=== PATIENT | male | born 1955 | race Caucasian/White ===

== ENCOUNTER 2018-10-06 20:59 | Emergency (ER) | payer MEDICAID, OTHER ==
[~2018-10-06] VITALS: Ht 165.1 cm; Wt 60.8 kg
--- OUTSIDE RECORDS SUMMARY | 2018-10-06 21:05 | XMS REPORT ---
Author Author [facility] Medical Staff Organization [facility] Address [address] [place], [place] [address] Phone [phone] Summary purpose CCDA Sent to [facility] Chief Complaint and Reason for Visit Admit Diagnosis 1 AGITATION, AGGRESSION Problem list No authorized problems tracked for continuity of care are available for this visit. Encounters No authorized problems tracked for encounter diagnoses are available for this visit. Medications No medications recorded for this patient visit Allergies, adverse reactions, alerts No allergy information is available for this patient. Immunizations No immunizations recorded for this patient visit Relevant diagnostic tests and/or laboratory data No authorized results are available for this patient visit History of procedures No procedures recorded for this patient visit. Functional status No functional or cognitive status observations are available for this visit. Vital signs No authorized vital signs are available for this visit. Social history No Social History or smoking status observations were recorded for this visit. ( Unknown if ever smoked.) Treatment Plan No treatment plan text is available for this visit. Hospital discharge instructions No discharge instruction text is available for this visit.
--- OUTSIDE RECORDS SUMMARY | 2018-10-06 21:05 | XMS REPORT | Referral Summary ---
Author Author [facility] Organization [facility] Address Unknown Phone Unavailable Care Team Providers Care Bilingual Interpreter Name Role Phone Rafat Flores PCP Encounter VC Date(s): 06/15/16 - 06/15/16 [facility] [address] [place], [place] [address] Discharge Diagnosis: Seizure Discharge Diagnosis: Seizure Discharge Disposition: 91-Alf Care Hsp-Plan A[facility] IP Readmi Attending Physician: Caro Hammer MD Admitting Physician: Caro Hammer MD Vital Signs Most recent to 1 oldest [Reference Range]: Temperature Oral 36.5 degC [35.8-37.3 degC] (06/15/16 7:02 AM) Peripheral Pulse 63 bpm Rate [60-100 bpm] (06/15/16 7:02 AM) Heart Rate Monitored 54 bpm [60-100 bpm] *LOW* (06/15/16 11:57 AM) Respiratory Rate 18 br/min [14-20 br/min] (06/15/16 11:57 AM) Blood Pressure 129/97 mmHg [90-140/60-90 mmHg] (06/15/16 11:57 AM) Mean Arterial 107 mmHg Pressure, Cuff (06/15/16 11:57 AM) SpO2 96 % (06/15/16 11:57 AM) Problem List Condition Effective Dates Status Health Status Informant Acute Resolved pain(Confirmed) Eye Active patient abnormality(Confirme d)1 History of traumatic Active brain injury(Confirmed) Ineffective coping Active (individual)(Confirm ed)2 Knowledge Active deficit(Confirmed)3, 4 Obesity(Confirmed) Active patient SD (senile Active dementia)(Confirmed) Senile Active dementia(Confirmed) Injury brain, Active traumatic(Confirmed) Hepatitis Active patient B(Confirmed) Hepatitis Active patient C(Confirmed) 1glass right eye 2Problem added automatically by system based on initiation of Ineffective Coping Plan of Care 3Problem updated automatically by system based on initiation of Knowledge Deficit Plan of Care 4Problem added automatically by system based on initiation of Knowledge Deficit Plan of Care Allergies, Adverse Reactions, Alerts No Known Allergies Medications acetaminophen 325 mg oral tablet 650 mg 2 tabs, Oral, q4hr, Pain Mild (1-3), 0 Refill(s) Start Date: 04/25/15 Status: Ordered Ativan 1 mg oral tablet 2 mg 2 tabs, Oral, q4hr, Anxiety, 0 Refill(s) Start Date: 04/25/15 Status: Ordered Cozaar 25 mg oral tablet 25 mg 1 tabs, Oral, Daily, 0 Refill(s) Start Date: 04/25/15 Status: Ordered folic acid 1 mg oral tablet 1 mg 1 tabs, Oral, Daily, 0 Refill(s) Start Date: 04/25/15 Status: Ordered gabapentin 300 mg oral capsule mg caps, Oral, TID, 0 Refill(s) Start Date: 06/03/16 Status: Ordered Haldol 5 mg 1 tabs, Oral, q4hr, Agitation, 0 Refill(s) Start Date: 04/25/15 Status: Ordered Keppra 500 mg oral tablet 500 mg 1 tabs, Oral, BID, # 60 tabs, 0 Refill(s), 1 tabs Oral BID Start Date: 06/15/16 Status: Ordered Namenda 10 mg oral tablet 10 mg 1 tabs, Oral, Daily, 0 Refill(s) Start Date: 04/25/15 Status: Ordered Protonix 40 mg oral delayed release tablet 40 mg 1 tabs, Oral, Daily, 0 Refill(s) Start Date: 04/25/15 Status: Ordered Vitamin B12 1000 mcg oral tablet 1,000 mcg 1 tabs, Oral, Daily, 0 Refill(s) Start Date: 04/25/15 Status: Ordered Vitamin D3 400 intl units oral tablet 400 Intl_Units 1 tabs, Oral, Daily, 0 Refill(s) Start Date: 04/25/15 Status: Ordered Zoloft 100 mg oral tablet G tabs, Oral, Daily, 0 Refill(s) Start Date: 06/03/16 Status: Ordered Results Hematology Most recent to 1 oldest [Reference Range]: WBC [4.8-10.8 4.9 10*3/uL 10*3/uL] (06/15/16 7:42 AM) RBC [4.60-6.20] 4.77 (06/15/16 7:42 AM) Hgb [14.0-18.0 14.4 gm/dL gm/dL] (06/15/16 7:42 AM) Hct [42.0-52.0 %] 41.9 % *LOW* (06/15/16 7:42 AM) MCV [82.0-99.0 fL] 87.8 fL (06/15/16 7:42 AM) MCH [27.0-32.0 pg] 30.2 pg (06/15/16 7:42 AM) MCHC [32.0-36.0 34.4 gm/dL gm/dL] (06/15/16 7:42 AM) RDW [11.5-14.5 %] 13.4 % (06/15/16 7:42 AM) Platelet [150-400 158 10*3/uL 10*3/uL] (06/15/16 7:42 AM) MPV [9.4-12.3 fL] 10.2 fL (06/15/16 7:42 AM) Immature 0.0 % Granulocytes (06/15/16 7:42 AM) [0.0-1.0 %] Neutrophils [51-75 62 % %] (06/15/16 7:42 AM) Lymphocytes [20-46 27 % %] (06/15/16 7:42 AM) Monocytes [4-11 %] 10 % (06/15/16 7:42 AM) Eosinophils [0-4 %] 1 % (06/15/16 7:42 AM) Basophils [0-2 %] 0 % (06/15/16 7:42 AM) Neutro Absolute 3.01 [1.90-7.00] (06/15/16 7:42 AM) Lymph Absolute 1.30 [0.80-3.30] (06/15/16 7:42 AM) [place] Absolute 0.50 [0.30-1.00] (06/15/16 7:42 AM) Eos Absolute 0.07 [0.00-0.50] (06/15/16 7:42 AM) Baso Absolute 0.01 [0.00-0.20] (06/15/16 7:42 AM) Chemistry Most recent to 1 oldest [Reference Range]: Sodium Lvl [136-144 139 mEq/L mEq/L] (06/15/16 7:42 AM) Potassium Lvl 3.9 mEq/L [3.6-5.1 mEq/L] (06/15/16 7:42 AM) Chloride [99-109 104 mEq/L mEq/L] (06/15/16 7:42 AM) CO2 [22-32 mEq/L] 24 mEq/L (06/15/16 7:42 AM) AGAP [3-20] 11 (06/15/16 7:42 AM) BUN [4-20 mg/dL] 14 mg/dL (06/15/16 7:42 AM) Glucose Lvl [70-100 114 mg/dL mg/dL] *HI* (06/15/16 7:42 AM) Creatinine Lvl 1.00 mg/dL [0.64-1.27 mg/dL] (06/15/16 7:42 AM) eGFR [>60] >60 1 (06/15/16 7:42 AM) Calcium Lvl 9.3 mg/dL [8.6-10.0 mg/dL] (06/15/16 7:42 AM) Albumin Lvl [3.5-4.8 4.1 gm/dL gm/dL] (06/15/16 7:42 AM) Total Protein 7.0 gm/dL [6.1-7.9 gm/dL] (06/15/16 7:42 AM) Globulin [1.9-4.3 2.9 gm/dL gm/dL] (06/15/16 7:42 AM) ALT [17-63 U/L] 21 U/L (06/15/16 7:42 AM) AST [15-41 U/L] 27 U/L (06/15/16 7:42 AM) Alk Phos [26-104 57 U/L U/L] (06/15/16 7:42 AM) Bili Total [0.2-1.2 1.3 mg/dL 2 mg/dL] *HI* (06/15/16 7:42 AM) Magnesium Lvl 1.9 mg/dL [1.8-2.5 mg/dL] (06/15/16 7:42 AM) 1Result Comment: Multiply eGFR results by 1.21 for race. 2Result Comment: Naproxen, specifically the metabolite O-desmethylnaproxen, may cause spurious elevation in Total Bilirubin levels. Toxicology Most recent to 1 oldest [Reference Range]: U Amphetamine Scrn Negative (06/15/16 8:56 AM) U Cocaine Scrn Negative (06/15/16 8:56 AM) U Cannab Scrn Negative (06/15/16 8:56 AM) U Opiate Scrn Negative (06/15/16 8:56 AM) U PCP Scrn Negative (06/15/16 8:56 AM) U Benzodiazepine Negative Scrn (06/15/16 8:56 AM) U Barbiturate Scrn Negative (06/15/16 8:56 AM) Methadone Lvl Negative (06/15/16 8:56 AM) Tricyclics Negative 1 (06/15/16 8:56 AM) 1Result Comment: Cut-off concentrations: Amphetamines: 1000 ng/mL Cocaine: 300 ng/mL Cannabinoid: 50 ng/mL Opiate: 300 ng/mL Phencyclidine (PCP): 25 ng/mL Benzodiazepine: 200 ng/mL Barbiturate: 200 ng/mL Methadone: 300 ng/mL Tricyclic: 300 ng/mL The urine drug screen assays are qualitative screens. A more specific GC/MS method must be performed to obtain a confirmed analytical result. Unconfirmed screening results must not be used for non-medical purposes(e.g. employment or legal testing) Immunizations No data available for this section Procedures No data available for this section Social History Social History Type Response Smoking Status Never smoker Assessment and Plan No data available for this section
--- OUTSIDE RECORDS SUMMARY | 2018-10-06 21:05 | XMS REPORT | Referral Summary ---
Author Author [facility] Organization [facility] Address Unknown Phone Unavailable Care Team Providers Care Lab Coordinator Name Role Phone Rafat Flores PCP Encounter VC Date(s): 06/03/16 - 06/03/[address] [facility] [address] [place], [place] [address] Discharge Diagnosis: Minor head injury Discharge Diagnosis: Dementia Discharge Diagnosis: Syncope, near Discharge Diagnosis: TBI (traumatic brain injury) Discharge Disposition: 03-Fpc Facility Attending Physician: Helio Zamora DO Admitting Physician: Helio Zamora DO Vital Signs Most recent to 1 oldest [Reference Range]: Temperature Oral 37.0 degC [35.8-37.3 degC] (06/03/16 7:08 AM) Peripheral Pulse 58 bpm Rate [60-100 bpm] *LOW* (06/03/16 7:08 AM) Heart Rate Monitored 56 bpm [60-100 bpm] *LOW* (06/03/16 10:15 AM) Respiratory Rate 20 br/min [14-20 br/min] (06/03/16 10:15 AM) Blood Pressure 124/98 mmHg [90-140/60-90 mmHg] (06/03/16 10:15 AM) Mean Arterial 102 mmHg Pressure, Cuff (06/03/16 8:15 AM) SpO2 96 % (06/03/16 10:00 AM) Problem List Condition Effective Dates Status [...] 0 Refill(s) Start Date: 04/25/15 Status: Ordered Namenda 10 mg oral tablet [...] [Reference Range]: WBC [4.8-10.8 4.9 10*3/uL 10*3/uL] (06/03/16 7:58 AM) RBC [4.60-6.20] 4.95 (06/03/16 7:58 AM) Hgb [14.0-18.0 15.0 gm/dL gm/dL] (06/03/16 7:58 AM) Hct [42.0-52.0 %] 43.2 % (06/03/16 7:58 AM) MCV [82.0-99.0 fL] 87.3 fL (06/03/16:58 AM) MCH [27.0-32.0 pg] 30.3 pg (06/03/16:58 AM) MCHC [32.0-36.0 34.7 gm/dL gm/dL] (06/03/16 7:58 AM) RDW [11.5-14.5 %] 13.6 % (06/03/16 7:58 AM) Platelet [150-400 160 10*3/uL 10*3/uL] (06/03/16 7:58 AM) MPV [9.4-12.3 fL] 10.7 fL (06/03/16 7:58 AM) Immature 0.0 % Granulocytes (06/03/16 7:58 AM) [0.0-1.0 %] Neutrophils [51-75 64 % %] (06/03/16 7:58 AM) Lymphocytes [20-46 24 % %] (06/03/16 7:58 AM) Monocytes [4-11 %] 11 % (06/03/16 7:58 AM) Eosinophils [0-4 %] 1 % (06/03/16 7:58 AM) Basophils [0-2 %] 0 % (06/03/16 7:58 AM) Neutro Absolute 3.13 [1.90-7.00] (06/03/16 7:58 AM) Lymph Absolute 1.19 [0.80-3.30] (06/03/16 7:58 AM) [place] Absolute 0.56 [0.30-1.00] (06/03/16 7:58 AM) Eos Absolute 0.04 [0.00-0.50] (06/03/16 7:58 AM) Baso Absolute 0.01 [0.00-0.20] (06/03/16 7:58 AM) Chemistry Most recent to 1 oldest [Reference Range]: Sodium Lvl [136-144 135 mEq/L mEq/L] *LOW* (06/03/16 7:58 AM) Potassium Lvl 4.5 mEq/L 1 [3.6-5.1 mEq/L] (06/03/16 9:29 AM) Chloride [99-109 104 mEq/L mEq/L] (06/03/16 7:58 AM) CO2 [22-32 mEq/L] 23 mEq/L (06/03/16 7:58 AM) AGAP [3-20] 8 (06/03/16 7:58 AM) BUN [4-20 mg/dL] 16 mg/dL (06/03/16 7:58 AM) Glucose Lvl [70-100 98 mg/dL mg/dL] (06/03/16 7:58 AM) Creatinine Lvl 0.89 mg/dL [0.64-1.27 mg/dL] (06/03/16 7:58 AM) eGFR [>60] >60 2 (06/03/16 7:58 AM) Calcium Lvl 9.0 mg/dL [8.6-10.0 mg/dL] (06/03/16 7:58 AM) Albumin Lvl [3.5-4.8 4.0 gm/dL gm/dL] (06/03/16 7:58 AM) Total Protein 7.0 gm/dL [6.1-7.9 gm/dL] (06/03/16 7:58 AM) Globulin [1.9-4.3 3.0 gm/dL gm/dL] (06/03/16 7:58 AM) ALT [17-63 U/L] 26 U/L (06/03/16 7:58 AM) AST [15-41 U/L] 46 U/L *HI* (06/03/16 7:58 AM) Alk Phos [26-104 56 U/L U/L] (06/03/16 7:58 AM) Bili Total [0.2-1.2 2.0 mg/dL 3 mg/dL] *HI* (06/03/16 7:58 AM) Troponin [<0.06 <0.05 ng/mL ng/mL] (06/03/16 7:58 AM) 1Result Comment: Hemolyzed specimen. The following tests may be affected: ALT, AST, Ammonia, Iron, Potassium, LDH, Amylase, CPK, and Total Bilirubin. ' 2Result Comment: Multiply eGFR results by 1.21 for race. 3Result Comment: Naproxen, specifically the metabolite O-desmethylnaproxen, may cause spurious elevation in Total Bilirubin levels. Urinalysis Most recent to 1 oldest [Reference Range]: UA Color Yellow (06/03/16 7:58 AM) UA Appear Clear (06/03/16 7:58 AM) UA pH [5.0-8.0] 6.0 (06/03/16 7:58 AM) UA Leuk Est Negative [Negative] (06/03/16 7:58 AM) UA Nitrite Negative [Negative] (06/03/16 7:58 AM) UA Protein Negative [Negative] (06/03/16 7:58 AM) UA Glucose Negative [Negative] (06/03/16 7:58 AM) UA Ketones Negative [Negative] (06/03/16 7:58 AM) UA Urobilinogen Negative [<1.0] (06/03/16 7:58 AM) UA Bili [Negative] Negative (06/03/16 7:58 AM) UA Blood [Negative] Negative (06/03/16 7:58 AM) UA Spec Grav 1.020 [1.003-1.030] (06/03/16 7:58 AM) Type Not Specified (06/03/16 7:58 AM) Immunizations No data available for this section Procedures No data available for this section Social History Social History Type Response Smoking Status Never smoker Assessment and Plan No data available for this section
--- OUTSIDE RECORDS SUMMARY | 2018-10-06 21:05 | XMS REPORT | Referral Summary ---
Author Author [facility], [facility] Organization [facility], [facility] Address Unknown Phone Unavailable Care Team Providers Care Public Health Professor Name Role Phone No PCP, Pt States PCP Encounter VC Date(s): 10/24/14 - 10/24/14 [facility], [address] [address] Discharge Diagnosis: Senile dementia Discharge Diagnosis: Hepatitis C Discharge Diagnosis: History of traumatic brain injury Discharge Disposition: 01-Home or Self Care Attending Physician: Yumiko Dang MD Admitting Physician: Yumiko Dang MD Vital Signs Most recent to 1 oldest [Reference Range]: Temperature Oral 36.7 degC [35.8-37.3 degC] (10/24/14 4:47 PM) Peripheral Pulse 76 bpm Rate [60-100 bpm] (10/24/14 4:47 PM) Blood Pressure 126/80 mmHg [90-140/60-90 mmHg] (10/24/14 4:47 PM) Problem List Condition Effective Dates Status Health Status Informant Acute Resolved pain(Confirmed) Eye Active patient abnormality(Confirme d)1 History of traumatic Active brain injury(Confirmed) Ineffective coping Active (individual)(Confirm ed)2 Knowledge Active deficit(Confirmed)3, 4 Obesity(Confirmed) Active patient Senile Active dementia(Confirmed) Hepatitis Active patient B(Confirmed) Hepatitis Active patient [...] 0 Refill(s) Start Date: 04/25/15 Status: Ordered Haldol 5 mg 1 tabs, [...] 0 Refill(s) Start Date: 04/25/15 Status: Ordered Results No data available for this section Immunizations No data available for this section Procedures No data available for this section Social History Social History Type Response Smoking Status Never smoker Assessment and Plan Extracted from: Title: Office Visit Note Author: Yumiko Dang MD Date: 10/24/14 Assessment/Plan 1.Senile dementia Namenda to 10mg BID. Will f/up with [facility] as well. 2.History of traumatic brain injury Stable at this time Hepatitis C Need records from previous tx. Will request when received. Orders: memantine, 10 mg 1 tabs, Oral, BID, # 60 tabs, 5 Refill(s), Pharmacy: [facility] #[id number], 1 tabs Oral BID
--- OUTSIDE RECORDS SUMMARY | 2018-10-06 21:06 | XMS REPORT | Referral Summary ---
Author Author [facility] Organization [facility] Address Unknown Phone Unavailable Care Team Providers Care Pre Billing Clinician Name Role Phone No PCP, Pt States PCP Encounter VC Date(s): 03/02/16 - 03/02/16 [facility] [address] [place], [place] [address] Discharge Diagnosis: TBI (traumatic brain injury) Discharge Disposition: 03-Residential Facility Attending Physician: Moises Johansen MD Admitting Physician: Moises Johansen MD Vital Signs Most recent to 1 oldest [Reference Range]: Temperature Oral 36.6 degC [35.8-37.3 degC] (03/02/16 7:40 AM) Peripheral Pulse 65 bpm Rate [60-100 bpm] (03/02/16 10:38 AM) Heart Rate Monitored 65 bpm [60-100 bpm] (03/02/16 10:00 AM) Respiratory Rate 16 br/min [14-20 br/min] (03/02/16 10:38 AM) Blood Pressure 130/94 mmHg [90-140/60-90 mmHg] (03/02/16 10:38 AM) Mean Arterial 108 mmHg Pressure, Cuff (03/02/16 10:00 AM) SpO2 95 % (03/02/16 10:38 AM) Problem List Condition Effective Dates Status [...] Refill(s) Start Date: 04/25/15 Status: Ordered Results Hematology Most recent to 1 oldest [Reference Range]: WBC [4.8-10.8 5.7 10*3/uL 10*3/uL] (03/02/16 8:38 AM) RBC [4.60-6.20] 5.17 (03/02/16 8:38 AM) Hgb [14.0-18.0 15.3 gm/dL gm/dL] (03/02/16 8:38 AM) Hct [42.0-52.0 %] 45.0 % (03/02/16 8:38 AM) MCV [82.0-99.0 fL] 87.0 fL (03/02/16 8:38 AM) MCH [27.0-32.0 pg] 29.6 pg (03/02/16 8:38 AM) MCHC [32.0-36.0 34.0 gm/dL gm/dL] (03/02/16 8:38 AM) RDW [11.5-14.5 %] 13.4 % (03/02/16 8:38 AM) Platelet [150-400 178 10*3/uL 10*3/uL] (03/02/16 8:38 AM) MPV [9.4-12.3 fL] 9.5 fL (03/02/16 8:38 AM) Immature 0.2 % Granulocytes (03/02/16:38 AM) [0.0-1.0 %] Neutrophils [51-75 70 % %] (03/02/16 8:38 AM) Lymphocytes [20-46 20 % %] (03/02/16 8:38 AM) Monocytes [4-11 %] 10 % (03/02/16 8:38 AM) Eosinophils [0-4 %] 0 % (03/02/16 8:38 AM) Basophils [0-2 %] 0 % (03/02/16 8:38 AM) Neutro Absolute 3.97 10*3 [1.90-7.00 10*3] (03/02/16 8:38 AM) Lymph Absolute 1.12 10*3 [0.80-3.30 10*3] (03/02/16 8:38 AM) [place] Absolute 0.55 10*3 [0.30-1.00 10*3] (03/02/16 8:38 AM) Eos Absolute 0.02 10*3 [0.00-0.50 10*3] (03/02/16 8:38 AM) Baso Absolute 0.01 10*3 [0.00-0.20 10*3] (03/02/16 8:38 AM) Chemistry Most recent to 1 oldest [Reference Range]: Sodium Lvl [136-144 135 mEq/L mEq/L] *LOW* (03/02/16 8:38 AM) Potassium Lvl 4.2 mEq/L [3.6-5.1 mEq/L] (03/02/16 8:38 AM) Chloride [99-109 104 mEq/L mEq/L] (03/02/16 8:38 AM) CO2 [22-32 mEq/L] 22 mEq/L (03/02/16 8:38 AM) AGAP [3-20] 9 (03/02/16 8:38 AM) BUN [4-20 mg/dL] 16 mg/dL (03/02/16 8:38 AM) Glucose Lvl [70-100 99 mg/dL mg/dL] (03/02/16 8:38 AM) Creatinine Lvl 0.86 mg/dL [0.64-1.27 mg/dL] (03/02/16 8:38 AM) eGFR [>60] >60 1 (03/02/16 8:38 AM) Calcium Lvl 9.4 mg/dL [8.6-10.0 mg/dL] (03/02/16 8:38 AM) Albumin Lvl [3.5-4.8 4.4 gm/dL gm/dL] (03/02/16 8:38 AM) Total Protein 7.8 gm/dL [6.1-7.9 gm/dL] (03/02/16 8:38 AM) Globulin [1.9-4.3 3.4 gm/dL gm/dL] (03/02/16 8:38 AM) ALT [17-63 U/L] 26 U/L (03/02/16 8:38 AM) AST [15-41 U/L] 27 U/L (03/02/16 8:38 AM) Alk Phos [26-104 64 U/L U/L] (03/02/16 8:38 AM) Bili Total [0.2-1.2 1.4 mg/dL 2 mg/dL] *HI* (03/02/16 8:38 AM) Troponin [<0.06 <0.05 ng/mL ng/mL] (03/02/16 8:38 AM) 1Result Comment: Multiply eGFR results by 1.21 for race. 2Result Comment: Naproxen, specifically the metabolite O-desmethylnaproxen, may cause spurious elevation in Total Bilirubin levels. Urinalysis Most recent to 1 oldest [Reference Range]: UA Color Yellow (03/02/16 8:42 AM) UA Appear Clear (03/02/16 8:42 AM) UA pH [5.0-8.0] 6.0 (03/02/16 8:42 AM) UA Leuk Est Negative [Negative] (03/02/16 8:42 AM) UA Nitrite Negative [Negative] (03/02/16 8:42 AM) UA Protein Negative [Negative] (03/02/16 8:42 AM) UA Glucose Negative [Negative] (03/02/16 8:42 AM) UA Ketones Negative [Negative] (03/02/16 8:42 AM) UA Urobilinogen Negative [<1.0] (03/02/16 8:42 AM) UA Bili [Negative] Negative (03/02/16 8:42 AM) UA Blood [Negative] Negative (03/02/16 8:42 AM) UA Spec Grav 1.015 [1.003-1.030] (03/02/16 8:42 AM) Type Clean Catch (03/02/16 8:42 AM) Immunizations No data available for this section Procedures No data available for this section Social History Social History Type Response Smoking Status Never smoker Assessment and Plan No data available for this section
--- OUTSIDE RECORDS SUMMARY | 2018-10-06 21:06 | XMS REPORT | Referral Summary ---
Author Author [facility] Organization [facility] Address Unknown Phone Unavailable Care Team Providers Care [place] Seamer Name Role Phone No PCP, Pt States PCP Encounter VC Date(s): 09/24/15 - 09/24/15 [facility] [address] [place], [place] [address] Discharge Diagnosis: Injury brain, traumatic Discharge Diagnosis: SD (senile dementia) Discharge Disposition: 03-Assisted Facility Attending Physician: Rashid Curtis DO Admitting Physician: Rashid Curtis DO Vital Signs Most recent to 1 oldest [Reference Range]: Temperature Oral 36.6 degC [35.8-37.3 degC] (09/24/15 7:27 PM) Peripheral Pulse 109 bpm Rate [60-100 bpm] *HI* (09/24/15 9:17 PM) Respiratory Rate 18 br/min [14-20 br/min] (09/24/15 9:17 PM) Blood Pressure 117/98 mmHg [90-140/60-90 mmHg] (09/24/15 9:17 PM) SpO2 98 % (09/24/15 9:17 PM) Problem List Condition Effective Dates Status [...]
--- OUTSIDE RECORDS SUMMARY | 2018-10-06 21:06 | XMS REPORT ---
Author Author Mikal Mc Organization [employer] Address Unknown Phone Unavailable Care Team Providers Care Director Of Media Name Role Phone Mikal Mc CP Unavailable Allergies No Known Allergies Problems Problem Type Condition ICD-9 Code Onset Dates Condition Status Assessment Abdominal pain, generalized 789.07 Active Problem Cervicalgia 723.1 Active Medications No Known Medications Results No Known Results Summary Purpose [employer] Submission
--- OUTSIDE RECORDS SUMMARY | 2018-10-06 21:06 | XMS REPORT ---
Author Author Neil Tapia Organization [employer] Address Unknown Phone Unavailable Care Team Providers Care Director Diabetes Name Role Phone Neil Tapia CP Unavailable Allergies No Known Allergies Problems Problem Type Condition ICD-9 Code Onset Dates Condition Status Problem Cervicalgia 723.1 Active Medications No Known Medications Vital Signs Date/Time: December 28, 2011 Weight 198.8 lbs Height 64 inches Blood Pressure Diastolic 93 mm Hg Blood Pressure Systolic 139 mm Hg Temperature 97.9 F Cardiac Monitoring Heart Rate 88 Beats per Minute Results No Known Results Summary Purpose [employer] Submission
--- OUTSIDE RECORDS SUMMARY | 2018-10-06 21:06 | XMS REPORT | Referral Summary ---
Author Organization Unknown Address Unknown Phone Unavailable Care Team Providers Care Carbon Sequestration Plant Operator Name Role Phone [facility] PCP Unavailable Encounter [facility] [id number] Date(s): 08/27/14 - 08/27/14 [facility] [address] [place] [address] [phone] Discharge Disposition: Home or Self Care Attending Physician: Mikal Mc DO Admitting Physician: Mikal Mc DO Vital Signs No data available for this section Problem List No data available for this section Allergies, Adverse Reactions, Alerts No data available for this section Medications No data available for this section Results No data available for this section Immunizations No data available for this section Procedures No data available for this section Social History No data available for this section Assessment and Plan No data available for this section
--- OUTSIDE RECORDS SUMMARY | 2018-10-06 21:06 | XMS REPORT ---
Author Author Mikal Mc Organization [employer] Address Unknown Phone Unavailable Care Team Providers Care [employer] Commerce Consultant Name Role Phone Mikal Mc CP Unavailable Allergies, Adverse Reactions, Alerts Substance Reaction Event Type N.K.D.A. Info Not Available Non Drug Allergy Problems Problem Type Condition ICD-9 Code Onset Dates Condition Status Assessment Abdominal pain, generalized 789.07 Active Assessment Routine general medical examination at health care facility V70.0 Active Problem Cervicalgia 723.1 Active Medications No Known Medications Procedures Procedure Coding System Code Date COMPLETE CBC W/AUTO DIFF WBC CPT-4 92481 August 20, 2014 Office Visit, Est Pt., Level 3 CPT-4 51796 August 20, 2014 COMPREHEN METABOLIC PANEL CPT-4 30186 August 20, 2014 Vital Signs Date/Time: August 20, 2014 BMI 32.95 Index Weight 192.0 lbs Height 64 in Blood Pressure Diastolic 92 mm Hg Blood Pressure Systolic 176 mm Hg Temperature 98.3 F Cardiac Monitoring Heart Rate 59 /min Results No Known Results Summary Purpose eClinicalWorks Submission
--- OUTSIDE RECORDS SUMMARY | 2018-10-06 21:06 | XMS REPORT ---
Author Mikal Mcfadden [facility] eClinicalWorks Address Unknown Phone Unavailable Care Team Providers Care Parking Manager Name Role Phone Mikal Mc CP Unavailable Allergies No Known Allergies Problems Problem Type Condition Code Onset Dates Condition Status Assessment Chronic hepatitis C without mention of hepatic coma 070.54 Active Problem Cervicalgia 723.1 Active Medications No Known Medications Results No Known Results Summary Purpose eClinicalWorks Submission
--- OUTSIDE RECORDS SUMMARY | 2018-10-06 21:06 | XMS REPORT ---
Author Author Neil Tapia Organization [employer] Address Unknown Phone Unavailable Care Team Providers Care Metal Stamping Machine Operator Name Role Phone Neil Tapia CP Unavailable [...]
--- OUTSIDE RECORDS SUMMARY | 2018-10-06 21:06 | XMS REPORT | Referral Summary ---
Author Author [facility] Organization [facility] Address Unknown Phone Unavailable Care Team Providers Care Automat Car Attendant Name Role Phone No PCP, Pt States PCP Encounter [facility] Date(s): 02/07/15 - 02/07/15 [facility] [address] [place], [place] [address] Discharge Diagnosis: Abdominal pain Discharge Diagnosis: Gastritis Final: UNSPECIFIED GASTRITIS AND GASTRODUODENITIS, WITHOUT MENTION OF HEMORRHAGE Final: ABDOMINAL PAIN, EPIGASTRIC Discharge Disposition: -Home or Self Care Attending Physician: Abdulaziz Ruiz MD Admitting Physician: Abdulaziz Ruiz MD Referring Physician: Self Referred, X Vital Signs Most recent to 1 oldest [Reference Range]: Temperature Oral 36.5 degC [35.8-37.3 degC] (02/07/15 8:13 AM) Peripheral Pulse 64 bpm Rate [60-100 bpm] (02/07/15 8:13 AM) Heart Rate Monitored 60 bpm [60-100 bpm] (02/07/15 11:55 AM) Respiratory Rate 16 br/min [14-20 br/min] (02/07/15 8:13 AM) Blood Pressure 115/97 mmHg [90-140/60-90 mmHg] (02/07/15 11:55 AM) Mean Arterial 102 mmHg Pressure, Cuff (02/07/15 11:55 AM) SpO2 98 % (02/07/15 11:55 AM) Problem List Condition Effective Dates Status [...] to 1 oldest [Reference Range]: WBC [4.8-10.8 4.7 10*3/uL 10*3/uL] *LOW* (02/07/15 9:14 AM) RBC [4.60-6.20] 4.81 (02/07/15 9:14 AM) Hgb [14.0-18.0 14.9 gm/dL gm/dL] (02/07/15 9:14 AM) Hct [42.0-52.0 %] 42.3 % (02/07/15 9:14 AM) MCV [82.0-99.0 fL] 87.9 fL (02/07/15 9:14 AM) MCH [27.0-32.0 pg] 31.0 pg (02/07/15 9:14 AM) MCHC [32.0-36.0 35.2 gm/dL gm/dL] (02/07/15 9:14 AM) RDW [11.5-14.5 %] 13.4 % (02/07/15 9:14 AM) Platelet [150-400 191 10*3/uL 10*3/uL] (02/07/15 9:14 AM) MPV [9.4-12.3 fL] 9.7 fL (02/07/15 9:14 AM) Immature 0.0 % Granulocytes (02/07/1514 AM) [0.0-1.0 %] Neutrophils [51-75 63 % %] (02/07/15 9:14 AM) Lymphocytes [20-46 25 % %] (02/07/15 9:14 AM) Monocytes [4-11 %] 11 % (02/07/15 9:14 AM) Eosinophils [0-4 %] 1 % (02/07/15 9:14 AM) Basophils [0-2 %] 0 % (02/07/15 9:14 AM) Neutro Absolute 2.93 10*3 [1.90-7.00 10*3] (02/07/15 9:14 AM) Lymph Absolute 1.18 10*3 [0.80-3.30 10*3] (02/07/15 9:14 AM) Lander Absolute 0.53 10*3 [0.30-1.00 10*3] (02/07/15 9:14 AM) Eos Absolute 0.04 10*3 [0.00-0.50 10*3] (02/07/15 9:14 AM) Baso Absolute 0.00 10*3 [0.00-0.20 10*3] (02/07/15 9:14 AM) Chemistry Most recent to 1 oldest [Reference Range]: Sodium Lvl [136-144 136 mEq/L mEq/L] (02/07/15 9:14 AM) Potassium Lvl 4.0 mEq/L [3.6-5.1 mEq/L] (02/07/15 9:14 AM) Chloride [99-109 105 mEq/L mEq/L] (02/07/15 9:14 AM) CO2 [22-32 mEq/L] 23 mEq/L (02/07/15 9:14 AM) AGAP [3-20] 8 (02/07/15 9:14 AM) BUN [4-20 mg/dL] 18 mg/dL (02/07/15 9:14 AM) Glucose Lvl [70-100 113 mg/dL mg/dL] *HI* (02/07/15 9:14 AM) Creatinine Lvl 0.84 mg/dL [0.64-1.27 mg/dL] (02/07/15 9:14 AM) eGFR [>60] >60 1 (02/07/15 9:14 AM) Calcium Lvl 9.5 mg/dL [8.6-10.0 mg/dL] (02/07/15:14 AM) Albumin Lvl [3.5-4.8 4.4 gm/dL gm/dL] (02/07/15 9:14 AM) Total Protein 7.5 gm/dL [6.1-7.9 gm/dL] (02/07/15:14 AM) Globulin [1.9-4.3 3.1 gm/dL gm/dL] (02/07/15 9:14 AM) ALT [17-63 U/L] 19 U/L (02/07/15 9:14 AM) AST [15-41 U/L] 24 U/L (02/07/15 9:14 AM) Alk Phos [26-104 62 U/L U/L] (02/07/15 9:14 AM) Bili Total [0.2-1.2 1.8 mg/dL 2 mg/dL] *HI* (02/07/15 9:14 AM) Troponin [<0.06 <0.05 ng/mL ng/mL] (02/07/15 9:14 AM) Lipase Lvl [8-48 41 U/L U/L] (02/07/15 9:14 AM) 1Result Comment: Multiply eGFR results by 1.21 for race. 2Result Comment: Naproxen, specifically the metabolite O-desmethylnaproxen, may cause spurious elevation in Total Bilirubin levels. Immunizations No data available for this section Procedures No data available for this section Social History Social History Type Response Smoking Status Never smoker Assessment and Plan No data available for this section
--- OUTSIDE RECORDS SUMMARY | 2018-10-06 21:06 | XMS REPORT | Referral Summary ---
Author Author [facility] Organization [facility] Address Unknown Phone Unavailable Care Team Providers Care Phlebotomy Supervisor Name Role Phone Rafat Flores PCP No PCP, Pt States PCP Yumiko Dang PCP [facility] PCP Unavailable No PCP, Pt States PCP Encounter [facility] [id number] Date(s): 08/29/17 - 08/29/17 [facility] [address] [place], [place] [address] Encounter Diagnosis Contusion of head (Discharge Diagnosis) - 08/29/17 Minor head injury (Discharge Diagnosis) - 08/29/17 Seizure (Discharge Diagnosis) - 08/29/17 Accidental fall (Discharge Diagnosis) - 08/29/17 Discharge Disposition: -Long Term Facility Attending Physician: Dave Altamirano DO Admitting Physician: Dave Altamirano DO Referring Physician: Self Referred, X Vital Signs Most recent to 1 oldest [Reference Range]: Temperature Oral 36.7 degC [35.8-37.3 degC] (08/29/17 7:45 AM) Temperature Temporal 36.7 degC Artery [36.3-37.8 (08/29/17 7:41 AM) degC] Peripheral Pulse 67 bpm Rate [60-100 bpm] (08/29/17 7:45 AM) Heart Rate Monitored 54 bpm [60-100 bpm] *LOW* (08/29/17 10:11 AM) Respiratory Rate 10 br/min [14-20 br/min] *LOW* (08/29/17 10:11 AM) Blood Pressure 139/86 mmHg [90-140/60-90 mmHg] (08/29/17 10:11 AM) Mean Arterial 103 mmHg Pressure, Cuff (08/29/17 10:11 AM) SpO2 96 % (08/29/17 9:51 AM) Blood Pressure Right arm Location (08/29/17 7:41 AM) Problem List Condition Effective Dates Status [...] Refill(s) Start Date: 06/03/16 Status: Ordered Results Chemistry Most recent to 1 oldest [Reference Range]: Sodium Venous 142 mEq/L [136-144 mEq/L] (08/29/17 8:23 AM) Potassium Venous 3.9 mEq/L 1 [3.6-5.1 mEq/L] (08/29/17 8:23 AM) Calcium Ionized 1.06 mmol/L Venous [1.19-1.41 *LOW* mmol/L] (08/29/17 8:23 AM) Total CO2 Venous 26 mEq/L [25-29 mEq/L] (08/29/17 8:23 AM) HGB Venous NPT 13.9 gm/dL [14.0-18.0 gm/dL] *LOW* (08/29/17 8:23 AM) HCT Venous 41.0 % [42.0-52.0 %] *LOW* (08/29/17 8:23 AM) Glucose Venous 95 mg/dL [70-100 mg/dL] (08/29/17 8:23 AM) BUN Venous [4-20] 19 (08/29/17 8:23 AM) Creatinine Venous 0.8 mg/dL [0.7-1.2 mg/dL] (08/29/17 8:23 AM) Venous CL [99-109 106 mEq/L mEq/L] (08/29/17 8:23 AM) Anion Gap, Jorje [3-20 10 mEq/L mEq/L] (08/29/17 8:23 AM) 1Result Comment: This test was performed on a whole blood specimen. The presence or absence of hemolysis cannot be assessed. Hemolysis can falsely elevate potassium levels. Normals are for venous specimens only. Immunizations No data available for this section Procedures No data available for this section Social History Social History Type Response Smoking Status Never smoker entered on: 09/12/14 Assessment and Plan No data available for this section
--- OUTSIDE RECORDS SUMMARY | 2018-10-06 21:07 | XMS REPORT | Continuity of Care Document ---
Author Organization Unknown Address Unknown Allergies Active Description Code Type Severity Reaction Onset Reported/Identified Relationship to Patient Clinical Status Yes No Known Allergies NKMA N/A N/A 09/13/2014 Medications Medication Packaging Start Date Stop Date Route Dosage Sig Al hydroxide/Mg hydroxide/simethicone(Maalox Advanced Maximum Strength oral suspension) 15 mL 09/13/2014 10/01/2014 Oral 15 mL, Oral, q6hr, PRN: Dyspepsia/Indigestion LORazepam(Ativan) 0.25 mL 201410/01/2014 IntraMuscular 0.5 mg 0.5 mg, IntraMuscular, q4hr, PRN: Anxiety acetaminophen(acetaminophen) 2 tabs 09/13/2014 10/01/2014 Oral 650 mg 650 mg, Oral, q4hr, PRN: Pain Mild (1-3) haloperidol(Haldol) 0.1 mL 201410/01/2014 IntraMuscular 0.5 mg 0.5 mg, IntraMuscular, q4hr, PRN: Agitation naproxen(naproxen) 09/13/2014 09/19/2014 Oral 500 mg 500 mg, Oral, q12hr, PRN: as needed for pain ibuprofen(ibuprofen) 09/13/2014 09/19/2014 Oral 800 mg 800 mg, Oral, q8hr folic acid(folic acid) 1 tabs 09/1310/01/2014 Oral 1 mg 1 mg, Oral, Daily memantine(Namenda) 1 tabs 201410/01/2014 Oral 10 mg 10 mg, Oral, Daily naproxen(naproxen) 2 tabs 201410/01/2014 Oral 500 mg 500 mg, Oral, q12hr, PRN: Pain Moderate (4-6) memantine(Namenda 10 mg oral tablet) 1 tabs 09/19/2014 10/24/2014 Oral 10 mg 1 tabs, Oral, Daily folic acid(folic acid 1 mg oral tablet) 1 tabs 09/19/2014 04/25/2015 Oral 1 mg 1 tabs, Oral, Daily LORazepam(Ativan 2 mg/mL injectable solution) 0.25 mL 09/19/2014 10/24/2014 IntraMuscular 0.5 mg 0.25 mL, IntraMuscular, q4hr, PRN: Anxiety acetaminophen(acetaminophen 325 mg oral tablet) 2 tabs 09/19/2014 04/25/2015 Oral 650 mg 2 tabs, Oral, q4hr, PRN: Pain Mild (1-3) memantine(Namenda 10 mg oral tablet) 1 tabs 10/24/2014 04/25/2015 Oral 10 mg 10 mg=1 tabs, Oral, BID, 60 tabs, 5 Refill(s) omeprazole(omeprazole 40 mg oral delayed release capsule) 1 caps 02/07/2015 04/25/2015 Oral 40 mg 40 mg=1 caps, Oral, Daily, before a meal, 30 caps, 0 Refill(s) methylPREDNISolone(Solu-MEDROL) 2 mL 04/17/2015 04/17/2015 IV Push 125 mg 125 mg=2 mL, IV Push, Once LORazepam(Ativan) 1 mL 04/17/2015 05/14/2015 IntraMuscular 2 mg 2 mg=1 mL, IntraMuscular, q4hr, PRN: Anxiety haloperidol(Haldol) 1 mL 201405/14/2015 IntraMuscular 5 mg 5 mg=1 mL, IntraMuscular, q4hr, PRN: Agitation folic acid(folic acid) 1 tabs 04/1705/14/2015 Oral 1 mg 1 mg=1 tabs, Oral, Daily acetaminophen(acetaminophen) 2 tabs 04/17/2015 05/14/2015 Oral 650 mg 650 mg=2 tabs, Oral, q4hr, PRN: Pain Mild (1-3) memantine(Namenda) 1 tabs 201404/18/2015 Oral 10 mg 10 mg=1 tabs, Oral, BID pantoprazole(Protonix) 1 tabs 04/1705/14/2015 Oral 40 mg 40 mg=1 tabs, Oral, Daily losartan(Cozaar) 1 tabs 04/18/2015 05/14/2015 Oral 25 mg 25 mg=1 tabs, Oral, Daily memantine(Namenda) 1 tabs 201405/14/2015 Oral 10 mg 10 mg=1 tabs, Oral, Daily memantine(Namenda 10 mg oral tablet) 1 tabs 04/25/2015 Oral 10 mg 10 mg=1 tabs, Oral, Daily, 0 Refill(s) losartan(Cozaar 25 mg oral tablet) 1 tabs 04/25/2015 Oral 25 mg 25 mg=1 tabs, Oral, Daily, 0 Refill(s) folic acid(folic acid 1 mg oral tablet) 1 tabs 04/25/2015 Oral 1 mg 1 mg=1 tabs, Oral, Daily, 0 Refill(s) pantoprazole(Protonix 40 mg oral delayed release tablet) 1 tabs 04/25/2015 Oral 40 mg 40 mg=1 tabs, Oral, Daily, 0 Refill(s) haloperidol(Haldol) 1 tabs 2014 Oral 5 mg 5 mg=1 tabs, Oral, q4hr, PRN: Agitation, 0 Refill(s) acetaminophen(acetaminophen 325 mg oral tablet) 2 tabs 04/25/2015 Oral 650 mg 650 mg=2 tabs, Oral, q4hr, PRN: Pain Mild (1-3), 0 Refill (s) LORazepam(Ativan 1 mg oral tablet) 2 tabs 04/25/2015 Oral 2 mg 2 mg=2 tabs, Oral, q4hr, PRN: Anxiety, 0 Refill(s) levETIRAcetam(Keppra 500 mg oral tablet) 1 tabs 06/15/2016 Oral 500 mg 500 mg=1 tabs, Oral, BID, 60 tabs, 0 Refill(s) levETIRAcetam(Keppra) 1 tabs 201606/15/2016 Oral 500 mg 500 mg=1 tabs, Oral, Once Sodium Chloride 0.9%(Sodium Chloride 0.9% Bolus) 500 mL 08/29/2017 08/29/2017 Bolus IV 500 mL, Bolus IV, Once Problems Date Dx Coded Attending Type Code Diagnosis Diagnosed By 02/09/2015 Abdulaziz Ruiz Final 535.50 UNSPECIFIED GASTRITIS AND GASTRODUODENITIS, WITHOUT MENTION OF HEMORRHAGE 02/09/2015 Abdulaziz Ruiz Reason 786.05 SHORTNESS OF BREATH 02/09/2015 Abdulaziz Ruiz Final 789.06 ABDOMINAL PAIN, EPIGASTRIC 09/29/2015 Rashid Curtis DO Final F03.90 Unspecified dementia without behavioral disturbance 09/29/2015 Rashid Curtis DO Reason R45.1 Restlessness and agitation 09/29/2015 Rashid Curtis DO Final Z87.820 Personal history of traumatic brain injury 03/04/2016 Moises Johansen Reason F99 Mental disorder, not otherwise specified 03/04/2016 Moises Johansen Final S06.9X0A Unspecified intracranial injury without loss of consciousness, initial enco 06/04/2016 W F03.90 Dementia 06/04/2016 W H53.9 Visual disturbance 06/04/2016 W H54.3 Category 9 visual impairment in both eyes 06/04/2016 W I10 HTN 06/07/2016 Zamora Daniel Final F03.90 Unspecified dementia without behavioral disturbance 06/07/2016 Zamora Daniel Reason M54.2 Cervicalgia 06/07/2016 Zamora Daniel Final R07.9 Chest pain, unspecified 06/07/2016 Zamora Daniel Final R55 Syncope and collapse 06/07/2016 Zamora Daniel Final S06.9X0A Unspecified intracranial injury without loss of consciousness, initial enco 06/07/2016 Zaomra Daniel Final W19.XXXA Unspecified fall, initial encounter 06/07/2016 Zamora Daniel Final Y92.[address] in [facility] as the place of occurrence of the externa 06/09/2016 W F03.90 Dementia 06/09/2016 W H53.9 Visual disturbance 06/09/2016 W H54.3 Category 9 visual impairment in both eyes 06/09/2016 W I10 HTN 06/17/2016 Bruey,, Caro Reason R56.9 Unspecified convulsions 07/05/2016 ARMINDA DIEHL, BRIAN Pérez B19.10 Unspecified viral hepatitis B without hepatic coma 07/05/2016 BRIAN HILLIARD MD B19.20 Unspecified viral hepatitis C without hepatic coma 07/05/2016 ARMINDA DIEHL, BRIAN Pérez E53.8 Deficiency of other specified B group vitamins 07/05/2016 BRIAN HILLIARD MD E88.09 [facility] disorders of plasma-protein metabolism, NEC 07/05/2016 ARMINDA DIEHL, BRIAN Pérez F01.51 Vascular dementia with behavioral disturbance 07/05/2016 ARMINDA DIEHL, BRIAN Pérez F31.2 Bipolar disord, crnt episode manic severe w psych features 07/05/2016 BRIAN HILLIARD MD F41.8 Other specified anxiety disorders 07/05/2016 BRIAN HILLIARD MD 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, right eye, normal vision left eye 07/05/2016 BRIAN HILLIARD MD I10 Essential (primary) hypertension 07/05/2016 ARMINDA DIEHL, BRIAN Pérez K59.09 Other constipation 07/05/2016 BRIAN HILLIARD MD R00.1 Bradycardia, unspecified 07/05/2016 BRIAN HILLIARD MD R45.1 Restlessness and agitation 01/06/2017 F B18.2 Chronic viral hepatitis C John Spencer S 01/06/2017 F B19.10 Unspecified viral hepatitis B without hepatic coma John Spencer S 01/06/2017 F F03.91 Unspecified dementia with behavioral disturbance John Spencer S 01/06/2017 F F20.9 Schizophrenia , unspecified Tj John S 01/06/2017 F F32.9 Major depressive disorder, single episode, unspecified Tj John S 01/06/2017 F F41.9 Anxiety disorder, unspecified Tj, John S 01/06/2017 F H53.9 Unspecified visual disturbance John Spencer S 01/06/2017 F H54.3 Unqualified visual loss, both eyes John Spencer S 01/06/2017 F 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, right eye, normal vision left eye John Spencer S 01/06/2017 F I10 Essential ( primary) hypertension John Spencer S 01/06/2017 F I15.8 Other secondary hypertension John Spencer S 01/06/2017 F K21.0 Gastro- esophageal reflux disease with esophagitis John Spencer S 01/06/2017 F R56.9 Unspecified convulsions John Spencer S 01/06/2017 F Z87.820 Personal history of traumatic brain injury John Spencer S 01/07/2017 F F03.91 Unspecified dementia with behavioral disturbance , Soha 01/07/2017 F F20.9 Schizophrenia , unspecified Dame, Soha 01/07/2017 F F32.9 Major depressive disorder, single episode, unspecified Damdeisi, Soha 01/07/2017 F F41.9 Anxiety disorder, unspecified Damdeisi, Soha 08/30/2017 Altamirano Jacob Final F03.90 Unspecified dementia without behavioral disturbance 08/30/2017 Adarsh,Dave Final G40.909 Epilepsy, unspecified, not intractable, without status epilepticus 08/30/2017 Adarsh,Dave Final I10 Essential (primary) hypertension 08/30/2017 Adarsh,Dave Final K21.9 Gastro-esophageal reflux disease without esophagitis 08/30/2017 Adarsh,Dave Final M50.322 Other cervical disc degeneration at C5-C6 level 08/30/2017 Altamirano Jacob Reason R56.9 Unspecified convulsions 08/30/2017 Adarsh,Dave Final S00.93XA Contusion of unspecified part of head, initial encounter 08/30/2017 Altamirano Jacob Final S09.8XXA Other specified injuries of head, initial encounter 08/30/2017 Altamirano Jacob Final W22.09XA Striking against other stationary object, initial encounter 08/30/2017 Altamirano Jacob Final Y92.[address] in [facility] as the place of occurrence of the externa 08/30/2017 Altamirano Jacob Final 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64-1.27 Globulin 3.0 g/dL 1.9-4.3 Glucose 98 mg/dL 70-100 Potassium 5.7 mEq/L 3.6-5.1 Protein 7.0 g/dL 6.1-7.9 Sodium 135 mEq/L 136-144 Troponin - 06/03/16 07:58 Troponin <0.05 ng/mL <0.06 eGFR - 06/03/16 07:58 eGFR >60 NA >60 Urinalysis with reflex microscopic - 06/03/16 07:58 Appearance Clear NA Bilirubin Negative NA Negative Blood Negative NA Negative Color Yellow NA Glucose, Urine Negative Negative Ketones Negative Negative Leukocyte Esterase Negative NA Negative Nitrites Negative NA Negative pH 6.0 NA 5.0-8.0 Protein Negative NA Negative Specific [place] 1.020 NA 1.003-1.030 UA Collection type Not Specified NA Urobilinogen Negative mg/dL <1.0 Potassium - 06/03/16 09:29 Potassium 4.5 mEq/L 3.6-5.1 CBC With Platelet and Differential - 06/15/16 07:42 Absolute Basophils 0.01 10*3/uL 0.00-0.20 Absolute Eosinophils 0.07 10*3/uL 0.00-0.50 Absolute Lymphocytes 1.30 10*3/uL 0.80-3.30 Absolute Monocytes 0.50 10*3/uL 0.30-1.00 Absolute Neutrophils 3.01 10*3/uL 1.90-7.00 Basophils 0 % 0-2 Eosinophils 1 % 0-4 HCT 41.9 % 42.0-52.0 HGB 14.4 g/dL 14.0-18.0 Immature Granulocytes 0.0 % 0.0-1.0 Lymphocytes 27 % 20-46 MCH 30.2 pg 27.0-32.0 MCHC 34.4 g/dL 32.0-36.0 MCV 87.8 fL 82.0-99.0 Monocytes 10 % 4-11 MPV 10.2 fL 9.4-12.3 Neutrophils 62 % 51-75 Platelet Count 158 K/uL 150-400 RBC 4.77 10*6/uL 4.60-6.20 RDW 13.4 % 11.5-14.5 WBC 4.9 K/uL 4.8-10.8 Comprehensive Metabolic Panel (CMP) - 06/15/16 07:42 Albumin 4.1 g/dL 3.5-4.8 Alkaline Phosphatase 57 U/L 26-104 ALT (SGPT) 21 U/L 17-63 Anion Gap 11 NA 3-20 AST (SGOT) 27 U/L 15-41 Bilirubin Total 1.3 mg/dL 0.2-1.2 BUN 14 mg/dL 4-20 Calcium 9.3 mg/dL 8.6-10.0 Chloride 104 mEq/L 99-109 CO2 24 mEq/L 22-32 Creatinine 1.00 mg/dL 0.64-1.27 Globulin 2.9 g/dL 1.9-4.3 Glucose 114 mg/dL 70-100 Potassium 3.9 mEq/L 3.6-5.1 Protein 7.0 g/dL 6.1-7.9 Sodium 139 mEq/L 136-144 Magnesium - 06/15/16 07:42 Magnesium 1.9 mg/dL 1.8-2.5 eGFR - 06/15/16 07:42 eGFR >60 NA >60 Urine Drug Screen - 06/15/16 08:56 Amph/Meth/Ecstasy Negative NA Barbiturates Negative NA Benzodiazepine Negative NA Cannabinoid Negative NA Cocaine Negative NA EDDP (Methadone met.) Negative NA Opiate Negative NA Phencyclidine (PCP) Negative NA Chem 8 NPT - 08/29/17 08:23 Anion Gap 10 mEq/L 3-20 BUN Venous 19 mg/dl 4-20 Calcium Ionized Venous 1.06 mmol/L 1.19-1.41 Creatinine Venous 0.8 mg/dL 0.7-1.2 Glucose Venous 95 mg/dL 70-100 Potassium, WB 3.9 mEq/L 3.6-5.1 Sodium Venous 142 mEq/L 136-144 Total CO2 Venous 26 mEq/L 25-29 Venous CL 106 mEq/L 99-109 HCT Venous 41.0 % 42.0-52.0 HGB Venous NPT 13.9 g/dL 14.0-18.0 Radiology Report from [id number] on 03/02/2016 14:57:00 Reason For ExamupsetREPORTIndication: AnxietyPortable chest 8:19 AMThere is scoliosis of the thoracic spine convex to the right. Heart size andpulmonary vascularity are normal. There are no infiltrates, effusions orpneumothoraces.Impression: No acute abnormalities in the chest.Dictated on workstation:[id number] Line FINAL DICTATED BY: PERI TOSCANO MDDICTATED DT/TM: 03/02/2016 8:25 AMSIGNED BY: PERI TOSCANO MDSIGNED (ELECTRONIC SIGNATURE): 03/02/2016 8:26 AMTECHNOLOGIST: KELI LI RT(R) Radiology Report from [id number] on 06/03/2016 08:45:00 Reason For Examfall/ head injuryREPORTCLINICAL INDICATION: Patient status post fall with head injury, seizures.Exam: Head CT without IV contrast. Axial CT scan of the cervical spine withsagittal and coronal reformations.Comparison: Head CT without IV contrast dated 04/17/2015. CT scan of thecervical spine dated 12/06/2011.Findings:Head CT:There is no evidence of acute cerebral infarct, intracranial hemorrhage, orgross mass effect.There is focal and patchy areas of low-attenuation white matter changes seenthroughout both cerebral hemispheres, likely representing chronic small vesselischemic disease. There is diffuse brain parenchymal volume loss again seenwhich is not significantly changed. There is normal philip-white matterdistinction. There is no significant midline shift or herniation.There is no evidence of hydrocephalus. The basal cisterns are unremarkable.Again noted appearance of dislocated lens involving the right globe. There isinterval slight increased density amorphously seen within the right globe.Otherwise, the skull, extracranial soft tissue, and orbits are unremarkable.There is minimal mucosal thickening in the ethmoid sinus.Cervical spine:There is no evidence of acute cervical spine fracture or dislocation. Stablesmall degenerative spurs involving the vertebral bodies and bilateral facetarthropathy. There is no significant central spinal canal or neuroforaminalnarrowing. There is no prevertebral soft tissue swelling. There is nosignificant neck soft tissue abnormality. The lung apices are unremarkable asvisualized.IMPRESSION:1: Stable CT scan of the brain with no evidence of acute intracranial process.2: Stable cervical spine degenerative disease with no acute fracture ordislocation.Dictated on workstation:[id number] Line PRELIMINARY DICTATED BY: AMANUEL TOLLIVER MDDICTATED DT/TM: 2015 8:30 Radiology Report from [id number] on 06/15/2016 11:23:00 Reason For ExamHead InjuryREPORTINDICATION: Seizures, history of brain injury.Noncontrast brain CT is performed and compared with 06/03/2016.FINDINGS: There are diffuse atrophic changes. There are patchy low-density changes in thedeep white matter compatible with chronic ischemic change. There is no acuteintracranial hemorrhage or mass effect or midline shift. The ventricles arenormal in size. There is no new parenchymal abnormality in the brain. Calvarialwindows show no acute bony abnormality. Abnormal density and irregularity ofthe right globe is again noted and appear chronic and similar to the priorstudy.IMPRESSION:Atrophy with chronic changes in deep white matter. No acute hemorrhage or masseffect or acute intracranial abnormality. Chronic changes in the right globeare again noted and appear similar to 2015.Dictated on workstation:[id number] Line PRELIMINARY DICTATED BY: CHASTITY SRIVASTAVA MDDICTATED DT/TM: 06/15/2016 11:18 Radiology Report from [id number] on 08/29/2017 13:23:00 Reason For Examfall, hx of TBI, head contusionREPORTPROCEDURE: CT head and CT cervical spine without contrast.TECHNIQUE: Multiple contiguous axial images were obtained through the brain andcervical spine without the use of intravenous contrast. Sagittal and coronalreformations through the cervical spine were then performed.INDICATION: Seizure, fall with head and neck injuryCT head:Study is limited by motion. Ventricles and sulci are diffusely prominent. Nohemorrhage is identified. Overall, there has been no significant adverse changewhen compared to study of 06/15/2016. There is volume loss in the right globe.There is no evidence of hemorrhage. No calvarial fracture seen and thevisualized paranasal sinuses are clear.IMPRESSION:Advanced senescent findings in the brain. Otherwise no definite acuteabnormality is seen on examination limited by motion.CT cervical spine:Comparison is made to study of 06/03/2016.Cervical spinal curvature and alignment remain within normal limits. Vertebralbody heights are maintained. There is mild disc space narrowing and endplatespurring at the C5-6 and C6-7 levels. There is no evidence of an acute fractureor subluxation.IMPRESSION: Lower cervical degenerative disc disease similar to previous studywithout evidence of acute cervical spinal abnormality.Dictated on workstation:[id number] Line PRELIMINARY DICTATED BY: ELIZABETH ELAM MDDICTATED DT/TM: 08/29/2017 8: 52 Encounters ACCT No. Visit Date/Time Discharge Status Pt. Type Provider Facility Loc./Unit Complaint [id number] 01/06/2017 12:20:00 01/06/2017 23:59:59 CLS Outpatient [id number] 08/29/2017 07:33:00 08/29/2017 10:33:00 DIS Emergency Altamirano Jacob [facility] ED seizure [id number] 06/15/2016 07:05:00 06/15/2016 12:27:00 DIS Emergency Hammer Denise [facility] ED seizures [id number] 06/03/2016 07:03:00 06/03/2016 10:38:00 DIS Emergency Zamora Daniel [facility] ED seizure [id number] 03/02/2016 07:32:00 03/02/2016 10:37:00 DIS Emergency Moises Johansen [facility] ED SBH [id number] 09/24/2015 19:26:00 09/24/2015 22:23:00 DIS Emergency Rashid Curtis DO [facility] ED psych eval [id number] 02/07/2015 08:08:00 02/07/2015 12:10:00 DIS Emergency Abdulaziz Ruiz [facility] ED soa, abd pain, tbi [id number] 08/30/2017 05:19:20 Document Registration [id number] 06/16/2016 05:17:01 Document Registration [id number] 04/26/2015 05:17:17 Document Registration [id number] 04/22/2015 05:17:18 Document Registration [id number] 04/19/2015 05:16:32 Document Registration [id number] 04/18/2015 05:16:40 Document Registration [id number] 03/26/2015 13:43:52 Document Registration [id number] 03/26/2015 12:22:21 Document Registration [id number] 03/26/2015 12:01:40 Document Registration [id number] 03/26/2015 11:54:41 Document Registration [id number] 06/15/2016 07:05:00 Document Registration [id number] 06/03/2016 07:03:00 Document Registration [id number] 06/21/2016 17:40:00 07/05/2016 16:00:00 DIS Inpatient ARMINDA DIEHL, BRIAN [facility] [id number] 06/04/2016 16:15:00 Document Registration
--- NOTE | 2018-10-06 21:17 | ED Psychosocial ---
General Chief Complaint: Psych/Social Disorder Stated Complaint: AGGRESSION Source: patient Exam Limitations: no limitations History of Present Illness Date Seen by Provider: October 06, 2018 Time Seen by Provider: 21:13 Initial Comments [facility] local [facility] with reports of agitation, striking or at least attempting to strike staff. He is full code. History of dementia, history of schizophrenia, major depressive disorder, traumatic brain injury. History of hepatitis C. He is on Depo injections of haloperidol monthly with additional haloperidol 2 mg orally to 6 hours when necessary agitation. Upon arrival to the emergency room he is somnolent & cooperative Timing/Duration: just prior to arrival Severity: moderate Allergies and Home Medications Allergies Coded Allergies: No Known Drug Allergies (Unverified , 10/06/18) Patient Home Medication List Home Medication List Reviewed: Yes Review of Systems Constitutional: see HPI EENTM: see HPI Respiratory: no symptoms reported Cardiovascular: no symptoms reported Genitourinary: no symptoms reported Musculoskeletal: no symptoms reported Skin: no symptoms reported Psychiatric/Neurological: See HPI Past Nqllptm-Pbgjgl-Wlenwt Hx Patient Social History Recent Foreign Travel: No Contact w/Someone Who Travel: No Physical Exam Vital Signs - First Documented 10/06/18 21:00 Temp 96.9 Pulse 53 Resp 16 B/P (MAP) 109/78 (88) Pulse Ox 96 O2 Delivery Room Air Capillary Refill : Height, Weight, BMI Height: '" Weight: lbs. oz. kg; BMI Method: General Appearance: WD/WN, no apparent distress HEENT: PERRL/EOMI, normal ENT inspection, other (there is a small laceration which was apparently self-inflicted somehow to the right lateral eyebrow. This does not require primary closure) Neck: non-tender, full range of motion Respiratory: normal breath sounds, no respiratory distress, no accessory muscle use Gastrointestinal: normal bowel sounds, non tender, soft Neurologic/Psychiatric: alert Appearance/Memory: disheveled, impaired insight Behavior/Eye Contact: cooperative Progress/Results/Core Measures Results/Orders Lab Results Laboratory Tests Test 10/06/18 21:17 Range/Units White Blood Count 3.4 L 4.3-11.0 10^3/uL Red Blood Count 3.78 L 4.35-5.85 10^6/uL Hemoglobin 12.5 L 13.3-17.7 G/DL Hematocrit 36 L 40-54 % Mean Corpuscular Volume 95 80-99 FL Mean Corpuscular Hemoglobin 33 25-34 PG Mean Corpuscular Hemoglobin Concent 35 32-36 G/DL Red Cell Distribution Width 12.7 10.0-14.5 % Platelet Count 144 130-400 10^3/uL Mean Platelet Volume 9.7 7.4-10.4 FL Neutrophils (%) (Auto) 59 42-75 % Lymphocytes (%) (Auto) 30 12-44 % Monocytes (%) (Auto) 11 0-12 % Eosinophils (%) (Auto) 1 0-10 % Basophils (%) (Auto) 0 0-10 % Neutrophils # (Auto) 2.0 1.8-7.8 X 10^3 Lymphocytes # (Auto) 1.0 1.0-4.0 X 10^3 Monocytes # (Auto) 0.4 0.0-1.0 X 10^3 Eosinophils # (Auto) 0.0 0.0-0.3 10^3/uL Basophils # (Auto) 0.0 0.0-0.1 10^3/uL Prothrombin Time 14.1 12.2-14.7 SEC INR Comment 1.1 0.8-1.4 Sodium Level 139 135-145 MMOL/L Potassium Level 4.1 3.6-5.0 MMOL/L Chloride Level 103 98-107 MMOL/L Carbon Dioxide Level 26 21-32 MMOL/L Anion Gap 10 5-14 MMOL/L Blood Urea Nitrogen 17 7-18 MG/DL Creatinine 0.79 0.60-1.30 MG/DL Estimat Glomerular Filtration Rate > 60 BUN/Creatinine Ratio 22 Glucose Level 100 70-105 MG/DL Calcium Level 9.7 8.5-10.1 MG/DL Corrected Calcium 9.4 8.5-10.1 MG/DL Total Bilirubin 0.8 0.1-1.0 MG/DL Aspartate Amino Transf (AST/SGOT) 23 5-34 U/L Alanine Aminotransferase (ALT/SGPT) 19 0-55 U/L Alkaline Phosphatase 54 40-136 U/L Ammonia 40 H 11-32 UMOL/L Total Protein 6.7 6.4-8.2 GM/DL Albumin 4.4 3.2-4.5 GM/DL My Orders Orders - DIONNE LAGOS APRN Ct Head Wo (10/06/18 21:06) Chest 1 View, Ap/Pa Only (10/06/18 21:06) Cbc With Automated Diff (10/06/18 21:06) Comprehensive Metabolic Panel (10/06/18 21:06) Protime With Inr (10/06/18 21:06) Ua Culture If Indicated (10/06/18 21:06) Ammonia (10/06/18 21:34) Haloperidol Injection (Haldol Injectio (10/06/18 22:30) Medications Given in ED Current Medications Medications Dose Ordered Sig/Oscar Route Start Time Stop Time Status Last Admin Dose Admin Haloperidol Lactate 2.5 mg ONCE ONCE IM 10/06/18 22:30 10/06/18 22:31 DC 10/06/18 22:26 2.5 MG Vital Signs/I&O 10/06/18 21:00 Temp 96.9 Pulse 53 Resp 16 B/P (MAP) 109/78 (88) Pulse Ox 96 O2 Delivery Room Air Diagnostic Imaging Diagonstic Imaging: Xray, CT Comments NAME: INNA JOHNSON [facility] REC#: [id number] PT STATUS: REG ER : 1955 PHYSICIAN: DIONNE LAGOS APRN ADMIT DATE: 10/06/18/ER Draft Date of Exam:10/06/18 CHEST 1 VIEW, AP/PA ONLY INDICATION: Fall Single AP view of the chest is obtained. Comparison is made to the study of 06/03/2016. Heart size and pulmonary vascularity are within normal limits. There is aortic tortuosity. No pneumothorax or consolidation is identified. There is no evidence of pleural fluid. IMPRESSION: No acute abnormalities detected. Dictated on workstation # [id number] Dict: 10/06/18 2137 Trans: 10/06/18 2140 LIV [id number] Interpreted by: ELIZABETH ELAM MD Electronically signed by: NAME: INNA JOHNSON [facility] REC#: [id number] PT STATUS: REG ER : 1955 PHYSICIAN: DIONNE LAGOS APRN ADMIT DATE: 10/06/18/ER Draft Date of Exam:10/06/18 CT HEAD WO PROCEDURE: CT head without contrast. TECHNIQUE: Multiple contiguous axial images were obtained through the brain without the use of intravenous contrast. Auto Exposure Controls were utilized during the CT exam to meet ALARA standards for radiation dose reduction. INDICATION: Fall with head injury CT imaging of the head is performed. Comparison is made to the study of 08/29/2017. Ventricles and sulci are diffusely prominent. There is extensive low density throughout the deep white matter of both cerebral hemispheres. There is no evidence of abnormal mass effect or shift of midline structures. No calvarial fracture is seen. Note is made of decreased volume of the right ocular globe. IMPRESSION: Involutional findings similar to previous study without CT evidence of acute intracranial abnormality. MRI has greater sensitivity for an infarct in the acute setting. Dictated on workstation # [id number] Dict: 10/06/182139 Trans: 10/06/182141 [facility] [id number] Interpreted by: ELIZABETH ELAM MD Electronically signed by: Departure Communication (Admissions) Spoke with Jonatan from behavioral health at [facility]. Feels that an appropriate plan given that he is cooperative now would be [facility] with a [facility] for intramuscular haloperidol if he will not take the oral haloperidol as needed and if this fails to better control his behaviors then potentially screen him for placement. I would agree that this seems somewhat appropriate plan. Given his apparent mental capacity I don't feel that he would get much value out of her therapy which is the only offer her from inpatient mental health that could not be obtained in the [facility]. 2220-patient is now restless, trying to crawl out of bed. Not hostile aggressive however. We attempted straight catheterization to obtain urine sample encountered difficulty about the level of the prostate, was unable to advance the Duran catheter. He has been incontinent of urine and his brief which is we will give Haldol 2 mg intramusculart. 2240-resting in bed. We will discharge back to the [facility] with an order for an outpatient urinalysis to be collected by the nurses this weekend and called to Dr. Nomi Owens who is on-call for Dr. Dr. Ventura this weekend. In the meantime I discussed the case with Dr. Ballard, agrees discharge back to the [facility] is appropriate, we will order lactulose twice a day for the elevated ammonia since he is not on that already. I will change his order for PRN oral Haldol to be either oral or intramuscular. 2322-just prior to discharge decided to check a bladder scan. He is incontinent of urine and wears a brief period bladder scan shows 600 mL. I attempted catheterization with a 16 [place] catheter then a 14 [place] catheter unsuccessfully with a bit of blood at the meatus after Duran catheter removal and a lot of resistance in the region of the prostate. Tried a 8 [place] catheter , then an 18 [place] coud, neither of which wouldn't pass. I spoke with Dr. Summers from urology, he is out of town, recommends transfer to [place] or urology is available. My concern is that the urinary retention, enlarged distended bladder is the cause of his agitation. 2332-I discussed the case with Dr. Gibson from the emergency room at [facility], agrees to accept the patient Impression Primary Impression: Agitation Additional Impression: Bladder outlet obstruction Disposition: 01 HOME, SELF-CARE Condition: Stable Departure-Patient Inst. Decision time for Depature: 22:40 Referrals: AIDA VENTURA DO (PCP/Family) Primary Care Physician Patient Instructions: NO INSTRUCTIONS GIVEN Add. Discharge Instructions: All discharge instructions reviewed with patient and/or family. Voiced understanding. Copy Copies To 1: AIDA VENTURA PETER J APRN October 06, 2018 21:17
[2018-10-06 21:27] LABS: BASOPHILS % (AUTO) 0 % (0-10); EOSINOPHILS % (AUTO) 1 % (0-10); HEMATOCRIT 36 % (40-54); HEMOGLOBIN 12.5 G/DL (13.3-17.7); LYMPHOCYTES % (AUTO) 30 % (12-44); MEAN CORPUSCULAR HEMOGLOBIN 33 PG (25-34); MEAN CORPUSCULAR HGB CONC 35 G/DL (32-36); MEAN CORPUSCULAR VOLUME 95 FL (80-99); MEAN PLATELET VOLUME 9.7 FL (7.4-10.4); MONOCYTES # (AUTO) 0.4 X 10^3 (0.0-1.0); MONOCYTES % (AUTO) 11 % (0-12); NEUTROPHILS % (AUTO) 59 % (42-75); PLATELET COUNT 144 10^3/uL (130-400); RED CELL DISTRIBUTION WIDTH 12.7 % (10.0-14.5); WHITE BLOOD COUNT 3.4 10^3/uL (4.3-11.0)
--- NOTE | 2018-10-06 21:40 | Diagnostic Imaging Report ---
INDICATION: Fall Single AP view of the chest is obtained. Comparison is made to the study of 06/03/2016. Heart size and pulmonary vascularity are within normal limits. There is aortic tortuosity. No pneumothorax or consolidation is identified. There is no evidence of pleural fluid. IMPRESSION: No acute abnormalities detected. Dictated by: Dictated on workstation # [id number]
[2018-10-06 21:41] LABS: INR 1.1 (0.8-1.4); PROTHROMBIN TIME PATIENT 14.1 SEC (12.2-14.7)
--- NOTE | 2018-10-06 21:43 | Diagnostic Imaging Report ---
PROCEDURE: CT head without contrast. TECHNIQUE: Multiple contiguous axial images were obtained through the brain without the use of intravenous contrast. Auto Exposure Controls were utilized during the CT exam to meet ALARA standards for radiation dose reduction. INDICATION: Fall with head injury CT imaging of the head is performed. Comparison is made to the study of 08/29/2017. Ventricles and sulci are diffusely prominent. There is extensive low density throughout the deep white matter of both cerebral hemispheres. There is no evidence of abnormal mass effect or shift of midline structures. No calvarial fracture is seen. Note is made of decreased volume of the right ocular globe. IMPRESSION: Involutional findings similar to previous study without CT evidence of acute intracranial abnormality. MRI has greater sensitivity for an infarct in the acute setting. Dictated by: Dictated on workstation # [id number]
[2018-10-06 21:49] LABS: ALANINE AMINOTRANSFERASE 19 U/L (0-55); ALBUMIN 4.4 GM/DL (3.2-4.5); ALKALINE PHOSPHATASE 54 U/L (40-136); BILIRUBIN,TOTAL 0.8 MG/DL (0.1-1.0); BUN/CREATININE RATIO 22; CALCIUM 9.7 MG/DL (8.5-10.1); CARBON DIOXIDE 26 MMOL/L (21-32); CHLORIDE 103 MMOL/L (98-107); CREATININE SERUM 0.79 MG/DL (0.60-1.30); GFR ESTIMATED > 60; GLUCOSE 100 MG/DL (70-105); POTASSIUM 4.1 MMOL/L (3.6-5.0); SODIUM 139 MMOL/L (135-145); TOTAL PROTEIN 6.7 GM/DL (6.4-8.2)
[2018-10-06] MEDS ORDERED: HALOPERIDOL 5 MG/ML (HALDOL) AMP IM ONE (22:30)
--- NOTE | 2018-10-06 22:47 | NUR ---
PT REPORT & DISCHARGE INSTRUCTIONS REVIEWED WITH NURSE TASHI @ [facility]. REQUEST EMS TRANSFER BACK TO FACILITY. REPORTS NO QUESTIONS OR CONCERNS @ THIS TIME.
--- NOTE | 2018-10-06 23:00 | NUR ---
DIONNE LAGOS APRN ATTEMPTED URINARY CATHETERIZATION. UNABLE TO PLACE CATHETER TO DRAIN BLADDER.
--- NOTE | 2018-10-06 23:32 | NUR ---
THIS RN SPOKE WITH NURSE TASHI @ [facility] REGARDING CHANGE IN PLAN OF CARE THAN JULIANO DISCUSSED. TASHI REPORT NO QUESTIONS OR CONCERNS REGARDING PT FINDINGS AND PT TRANSFER TO [facility].
[2018-10-06] MEDS ORDERED: fentaNYL INJECTION 100 MCG/2 ML AMP IVP PRN (23:45)
[2018-10-07 00:15] VITALS: BP 113/69
== END 2018-10-07 00:15 | disposition short-term general hospital (02) ==
LOC: ER 21:01
DX: R45.1 Restlessness and agitation (principal); N32.0 Bladder-neck obstruction; B19.20 Unspecified viral hepatitis C without hepatic coma; F03.90 Unspecified dementia, unspecified severity, without behavioral disturbance, psychotic disturbance, mood disturbance, and anxiety; F20.9 Schizophrenia, unspecified; Z87.820 Personal history of traumatic brain injury
CPT/HCPCS: 36415; 70450; 71045; 80053; 82140; 85025; 85610

== ENCOUNTER → 2018-10-29 | Emergency (ER) | payer MEDICAID | LOC: ER 18:06 ==

== ENCOUNTER → 2018-11-22 | Outpatient (CLI) | payer MEDICAID ==
--- NOTE | 2018-11-22 13:18 | Diagnostic Imaging Report ---
PROCEDURE: US Renal Bilateral. TECHNIQUE: Multiple real-time grayscale images were obtained over the kidneys in various projections bilaterally. INDICATION: Urinary retention and incontinence. FINDINGS: Right kidney is small measuring 7.7 x 4.9 x 4.5 cm. Left kidney measures 9.2 x 4.1 x 4.8 cm. Cortical thickness and echogenicity appears normal. No calculi are seen. There is no hydronephrosis. Bladder volume is approximately 135 mL. Patient was unable to void. No wall thickening or mass is seen. Only the left ureteral jet was visualized. IMPRESSION: Slightly small right kidney. The study is otherwise unremarkable for calculi or hydronephrosis. Patient was unable to void. Dictated by: Dictated on workstation # [id number]
== END ==
LOC: RAD 08:38
PROVIDERS: ATTEND Urology
DX: R32 Unspecified urinary incontinence (principal); R33.9 Retention of urine, unspecified
CPT/HCPCS: 76770

== ENCOUNTER → 2019-06-29 | Outpatient (CLI) | payer MEDICAID | LOC: LAB 14:53 | PROVIDERS: ATTEND Family Medicine | DX: R21 Rash and other nonspecific skin eruption (principal) | CPT/HCPCS: 87220 ==

== ENCOUNTER → 2019-07-30 | Outpatient (CLI) | payer MEDICAID ==
[2019-07-30 11:36] LABS: ABSOLUTE RETIC # 34 10e9/L (24-90); BASOPHILS % (AUTO) 0 % (0-10); EOSINOPHILS # (AUTO) 0.1 10^3/uL (0.0-0.3); EOSINOPHILS % (AUTO) 2 % (0-10); HEMATOCRIT 38 % (40-54); HEMOGLOBIN 12.6 G/DL (13.3-17.7); LYMPHOCYTES # (AUTO) 2.1 X 10^3 (1.0-4.0); LYMPHOCYTES % (AUTO) 39 % (12-44); MEAN CORPUSCULAR HEMOGLOBIN 33 PG (25-34); MEAN CORPUSCULAR HGB CONC 34 G/DL (32-36); MEAN CORPUSCULAR VOLUME 100 FL (80-99); MEAN PLATELET VOLUME 9.3 FL (7.4-10.4); MONOCYTES # (AUTO) 0.7 X 10^3 (0.0-1.0); MONOCYTES % (AUTO) 13 % (0-12); NEUTROPHILS # (AUTO) 2.4 X 10^3 (1.8-7.8); NEUTROPHILS % (AUTO) 46 % (42-75); PLATELET COUNT 124 10^3/uL (130-400); RED CELL DISTRIBUTION WIDTH 13.5 % (10.0-14.5); WHITE BLOOD COUNT 5.3 10^3/uL (4.3-11.0)
[2019-07-30 12:13] LABS: ANISOCYTOSIS SLIGHT; BAND NEUTROPHILS 3 %; EOSINOPHILS % (MANUAL) 1 %; LYMPHOCYTES % (MANUAL) 40 %; MONOCYTES % (MANUAL) 16 %; NEUTROPHILS % (MANUAL) 40 %
== END ==
LOC: LAB 10:58
PROVIDERS: ATTEND Family Medicine
DX: D64.9 Anemia, unspecified (principal)
CPT/HCPCS: 36415; 82607; 82728; 82746; 83540; 83550; 85007; 85027; 85045

== ENCOUNTER 2019-09-16 08:33 | Inpatient (IN) | payer MEDICAID ==
[~2019-09-16] VITALS: Ht 170 cm; Wt 54.0 kg
[2019-09-16] VITALS (14 sets, daily range): BP systolic 108–175; BP diastolic 67–119
--- OUTSIDE RECORDS SUMMARY | 2019-09-16 08:47 | XMS REPORT | Continuity of Care Document ---
Author Organization Unknown Address Unknown Phone Unavailable Allergies Active Description Code Type Severity Reaction Onset Reported/Identified Relationship to Patient Clinical Status Yes No Known Allergies NKMA N/A N/A 09/13/2014 Yes No Known Drug Allergies [id number] Drug Allergy Unknown N/A 10/06/2018 Medications Medication Packaging Start Date St op Date Route Dosage Sig Al hydroxide/Mg hydroxide/si methicone(Maalox Advanced Maximum Strength oral suspension) 15 mL 09/14/19 15 10/01/2014 Oral 15 mL, Oral, q6hr, PRN: Dyspepsia/Indigestion LORazepam(Ativan) 0.25 mL 09/13/2014 10/01/2014 IntraMuscular 0.5 mg 0.5 mg, IntraMuscular, q4hr, PRN: Anxiety acetaminophen(acetaminophen) 2 tabs 09/13/2014 10/01/2014 Oral 650 mg 650 mg, Oral, q4hr, PRN: Pain Mild (1-3) haloperidol(Haldol) 0.1 mL 09/13/2014 10/01/2014 IntraMuscular 0.5 mg 0.5 mg, IntraMuscular, q4hr, PRN: Agitation naproxen(naproxen) 09/13/2014 09/19/2014 Oral 500 mg 500 mg, Oral, q12hr, PRN: as needed for pain ibuprofen(ibuprofen) 09/13/2014 09/19/2014 Oral 800 mg 800 mg, Oral, q8hr folic acid(folic acid) 1 tab s 09/13/2014 10/01/2014 Oral 1 mg 1 mg, Oral, Daily memantine(Namenda) 1 tabs 09/13/2014 10/01/2014 Oral 10 mg 10 mg, Oral, Daily naproxen(naproxen) 2 tabs 09/13/2014 10/01/2014 Oral 500 mg 500 mg, Oral, q12hr, PRN: Pain Moderate (4-6) memantine(Namenda 10 mg oral tablet) 1 tabs 09/19/2014 10/24/2014 Oral 10 mg 1 tabs, Oral, Daily folic acid(folic acid 1 mg oral tablet) 1 tabs 09/19/2014 04/25/2015 Oral 1 mg 1 tabs, Oral, Daily LORazepam(Ativan 2 mg/mL injectable soluti on) 0.25 mL 09/19/2014 10/24/2014 IntraMuscular 0.5 mg 0.25 mL, IntraMu scular, q4hr, PRN: Anxiety acetaminophen(acetaminophen 325 mg oral ta blet) 2 tabs 09/19/2014 04/25/2015 Oral 650 m g 2 tabs, Oral, q4hr, PRN: Umberto n Mild (1-3) memantine(Namenda 10 mg oral tablet) 1 tabs 10/24/2014 04/25/2015 Oral 10 mg 10 mg = 1 tabs, Oral, BID, 60 tabs, 5 Refill(s) omeprazole(omeprazole 40 mg oral delayed release capsule) 1 caps 02/07/2015 04/25/2015 Oral 40 mg 40 mg = 1 caps, Oral, Daily, before a meal, 30 caps, 0 Refill(s) methylPREDNISolone(Solu-MEDROL) 2 mL 04/17/2015 04/17/2015 IV Push 125 mg 125 mg = 2 mL, IV Push, Once LORazepam(Ativan) 1 mL 04/17/2015 05/14/2015 IntraMuscular 2 mg 2 mg = 1 mL, IntraMuscular, q4hr, PRN: Anxiety haloperidol(Haldol) 1 mL 04/17/2015 05/14/2015 IntraMuscular 5 mg 5 mg = 1 mL, IntraMuscular, q4hr, PRN: Agitation folic acid(folic acid) 1 tab s 04/17/2015 05/14/2015 Oral 1 mg 1 mg = 1 tabs, Oral, Daily acetaminophen(acetaminophen) 2 tabs 04/17/2015 05/14/2015 Oral 650 mg 650 mg = 2 tabs, Oral, q4hr, PRN: Pain Mild (1-3) memantine(Namenda) 1 tabs 04/17/2015 04/18/2015 Oral 10 mg 10 mg = 1 tabs, Oral, BID pantoprazole(Protonix) 1 tab s 04/17/2015 05/14/2015 Oral 40 mg 40 mg = 1 tabs, Oral, Daily losartan(Cozaar) 1 tabs 04/18/2015 05/14/2015 Oral 25 mg 25 mg = 1 tabs, Oral, Daily memantine(Namenda) 1 tabs 04/21/2015 05/14/2015 Oral 10 mg 10 mg = 1 tabs, Oral, Daily memantine(Namenda 10 mg oral tablet) 1 tabs 04/25/2015 Oral 10 mg 10 mg = 1 tabs, Oral, Daily, 0 Refill(s) losartan(Cozaar 25 mg oral tablet) 1 tabs 04/25/2015 Oral 25 mg 25 mg = 1 tabs, Oral, Daily, 0 Refill(s) folic acid(folic acid 1 mg oral tablet) 1 tabs 04/25/2015 Oral 1 mg 1 mg = 1 tabs, Oral, Daily, 0 Refill(s) pantoprazole(Protonix 40 mg oral delayed release tablet) 1 tabs 04/25/2015 Oral 4 0 mg 40 mg = 1 tabs, Oral, Daily, 0 Refill(s) haloperidol(Haldol) 1 tabs 04/25/2015 Oral 5 mg 5 mg = 1 tabs, Oral, q4hr, PRN: Agitation, 0 Refill(s) acetaminophen(acetaminophen 325 mg oral ta blet) 2 tabs 04/25/2015 Oral 650 mg 650 mg = 2 tabs, Oral, q4hr, PRN: Pain Mild (1-3), 0 Refill(s) LORazepam(Ativan 1 mg oral tablet) 2 tabs 04/25/2015 Oral 2 mg 2 mg = 2 tabs, Oral, q4hr, PRN: Anxiety, 0 Refill(s) levETIRAcetam(Keppra 500 mg oral tablet) 1 tabs 06/15/2016 Oral 500 mg 500 mg = 1 tabs, Oral, BID, 60 tabs, 0 Refill(s) levETIRAcetam(Keppra) 1 tabs 06/15/2016 06/15/2016 Oral 500 mg 500 mg = 1 tabs, Oral, Once Sodium Chloride 0.9%(Sodium Chloride 0.9% Bolus) 500 mL 08/29/2017 08/29/2017 Bolus IV 500 mL, Bolus IV, Once Problems Date Dx Coded Attending Type Code Diagnosis Diagnosed By 02/09/2015 Abdulaziz Ruiz Final 535.50 UNSPECIFIED GASTRITIS AND GASTRODUODENIT IS, WITHOUT MENTION OF HEMORRHAGE 02/09/2015 Abdulaziz Ruiz Reason 786.05 SHORTNESS OF BREATH 02/09/2015 Abdulaziz Ruiz Final 789.06 ABDOMINAL PAIN, EPIGASTRIC 09/29/2015 Rashid Curtis DO Final F03.90 Unspecified dementia without behavioral disturbance 09/29/2015 Rashid Curtis DO Reason R45.1 Restlessness and agitation 09/29/2015 Rsahid Curtis DO Final Z87.820 Personal history of traumatic brain injury 03/04/2016 Moises Johansen Reason F99 Mental disorder, not otherwise specified 03/04/2016 Moises Johansen Final S06.9X0A Unspecified intracranial injury without loss of consciousness, initial enco 06/07/2016 Zamora Daniel Final F03. 90 Unspecified dementia without behavioral disturbance 06/07/2016 Zamora Daniel Reason M54 .2 Cervicalgia 06/07/2016 Zamora Daniel Final R07. 9 Chest pain, unspecified 06/07/2016 Zamora Daniel Final R55 Syncope and collapse 06/07/2016 Zamora Daniel Final S 06.9X0A Unspecified intracranial injury without loss of consciousness, initial enco 06/07/2016 Zamora Daniel Final W 19.XXXA Unspecified fall, initial encounter 06/07/2016 Zamora Daniel Final Y 92.[address] in snf as the place of occurrence of the externa 06/17/2016 Bruey,, Caro Reason R56 .9 Unspecified convulsions 07/05/2016 BRIAN HILLIARD MD B19.10 Unspecified viral hepatitis B without hepatic coma 07/05/2016 BRIAN HILLIARD MD B19.20 Unspecified viral hepatitis C without hepatic coma 07/05/2016 BRIAN HILLIARD MD E53.8 Deficiency of other specified B group vitamins 07/05/2016 BRIAN HILLIARD MD E88.09 [facility] disorders of plasma-protein metabolism, NEC 07/05/2016 BRIAN HILLIARD MD F01.51 Vascular dementia with behavioral disturbance 07/05/2016 BRIAN HILLIARD MD F31.2 Bipolar disord, crnt episode manic severe w psych features 07/05/2016 ARMINDA DIEHL, BRIAN Pérez F41.8 Other specified anxiety disorders 07/05/2016 ARMINDA DIEHL, BRIAN Pérez 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, right eye, normal vision left eye 07/05/2016 ARMINDA DIEHL, BRIAN Pérez I10 Essential (primary) hypertension 07/05/2016 ARMINDA DIEHL, BRIAN Pérez K59.09 Other constipation 07/05/2016 ARMINDA DIEHL, BRIAN Pérez R00.1 Bradycardia, unspecified 07/05/2016 ARMINDA DIEHL, BRIAN Pérez R45.1 Restlessness and agitation 01/06/2017 F B18.2 [employer] Frier adonis viral hepatitis C John Spencer S 01/06/2017 F B19.10 Uns pecified viral hepatitis B without hepatic coma John Spencer S 01/06/2017 F F03.91 Uns pecified dementia with behavioral disturbance John Spencer S 01/06/2017 F F20.9 Schi zophrenia, unspecified John Spencer S 01/06/2017 F F32.9 Samantha r depressive disorder, single episode, unspecified John Spencer S 01/06/2017 F F41.9 Anxi ety disorder, unspecified John Sepncer S 01/06/2017 F H53.9 Unsp ecified visual disturbance John Spencer S 01/06/2017 F H54.3 Unqu alified visual loss, both eyes John Spencer S 01/06/2017 F H54.41 Bli ndness, right eye, normal vision left eye John Spencer S 01/06/2017 F I10 Essent ial (primary) hypertension John Spencer S 01/06/2017 F I15.8 Othe r secondary hypertension John Spencer S 01/06/2017 F K21.0 Bora ro-esophageal reflux disease with esophagitis John Spencer S 01/06/2017 F R56.9 Unsp ecified convulsions John Spencer S 01/06/2017 F Z87.820 Pe rsonal history of traumatic brain injury John Spencer S 01/07/2017 F F03.91 Uns pecified dementia with behavioral disturbance Soha Morton 01/07/2017 F F20.9 Schi zophrenia, unspecified Soha Morton 01/07/2017 F F32.9 Samantha r depressive disorder, single episode, unspecified Dame, Soha 01/07/2017 F F41.9 Anxi ety disorder, unspecified , Soha 08/30/2017 Altamirano Jacob Final F03.90 Unspecified dementia without behavioral disturbance 08/30/2017 Adarsh,Dave Final G40.90 9 Epilepsy, unspecified, not intractable, without status epilepticus 08/30/2017 Adarsh,Dave Final I10 Essential (primary) hypertension 08/30/2017 Adarsh,Dave Final K21.9 Gastro-esophageal reflux disease without esophagitis 08/30/2017 Adarsh,Dave Final M50.32 2 Other cervical disc degeneration at C5-C6 level 08/30/2017 Adarsh,Dave Reason R56.9 Unspecified convulsions 08/30/2017 Adarsh,Dave Final S00.93 XA Contusion of unspecified part of head, initial encounter 08/30/2017 Altamirano Jacob Final S09.8X XA Other specified injuries of head, initial encounter 08/30/2017 Adarsh,Dave Final W22.09 XA Striking against other stationary object, initial encounter 08/30/2017 Adarsh,Dave Final Y92.[address] in snf as the place of occurrence of the externa 08/30/2017 Altamirano Jacob Final 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 08/30/2017 Adarsh,Dave Final Z87.82 0 Personal history of traumatic brain injury 10/07/2018 DIONNE LAGOS APRN Ot B19.20 UNSPECIFIED VIRAL HEPATITIS C WITHOUT HE 10/07/2018 DIONNE LAGOS APRN Ot F03.90 UNSPECIFIED DEMENTIA WITHOUT BEHAVIORAL 10/07/2018 DIONNE LAGOS APRN Ot F20 .9 SCHIZOPHRENIA, UNSPECIFIED 10/07/2018 DIONNE LAGOS APRN Ot N32 .0 BLADDER-NECK OBSTRUCTION 10/07/2018 DIONNE LAGOS APRN Ot R45 .1 RESTLESSNESS AND AGITATION 10/07/2018 DIONNE LAGOS APRN Ot Z87.820 PERSONAL HISTORY OF TRAUMATIC BRAIN INJU 10/09/2018 DIONNE LAGOS APRN Ot B19.20 UNSPECIFIED VIRAL HEPATITIS C WITHOUT HE 10/09/2018 DIONNE LAGOS APRN Ot F03.90 UNSPECIFIED DEMENTIA WITHOUT BEHAVIORAL 10/09/2018 DIONNE LAGOS GREENHOUSE TRANSPLANTER Ot F20 .9 SCHIZOPHRENIA, UNSPECIFIED 10/09/2018 DIONNE LAGOS GREENHOUSE TRANSPLANTER Ot N32 .0 BLADDER-NECK OBSTRUCTION 10/09/2018 DIONNE LAGOS GREENHOUSE TRANSPLANTER Ot R45 .1 RESTLESSNESS AND AGITATION 10/09/2018 DIONNE LAGOS GREENHOUSE TRANSPLANTER Ot Z87.820 PERSONAL HISTORY OF TRAUMATIC BRAIN INJU 10/29/2018 LUZMA TAVARES Ot B19.20 UNSPECIFIED VIRAL HEPATITIS C WITHOUT HE 10/29/2018 LUZMA TAVARES Ot F03.90 UNSPECIFIED DEMENTIA WITHOUT BEHAVIORAL 10/29/2018 LUZMA TAVARES Ot F20.9 SCHIZOPHRENIA, UNSPECIFIED 10/29/2018 LUZMA TAVARES Ot F32.9 MAJOR DEPRESSIVE DISORDER, SINGLE EPISOD 10/29/2018 LUZMA TAVARES Ot G40.909 EPILEPSY, UNSP, NOT INTRACTABLE, WITHOUT 10/29/2018 LUZMA TAVARES Ot I10 ESSENTIAL (PRIMARY) HYPERTENSION 10/29/2018 LUZMA TAVARES Ot R40.2142 COMA SCALE, EYES OPEN, SPONTANEOUS, EMR 10/29/2018 LUZMA TAVARES Ot R40.2252 COMA SCALE, BEST VERBAL RESPONSE, ORIENT 10/29/2018 LUZMA TAVARES Ot R40.2362 COMA SCALE, BEST MOTOR RESPONSE, OBEYS C 10/29/2018 LUZMA TAVARES Ot S00.81XA ABRASION OF OTHER PART OF HEAD, INITIAL 10/29/2018 LUZMA TAVARES Ot S09.90XA UNSPECIFIED INJURY OF HEAD, INITIAL ENCO 10/29/2018 LUZMA TAVARES Ot W06.XXXA FALL FROM BED, INITIAL ENCOUNTER 10/29/2018 LUZMA TAVARES Ot Y92.[address] IN [facility] PLACE 10/29/2018 LUZMA TAVARES Ot Z87.19 PERSONAL HISTORY OF OTHER DISEASES OF TH 11/02/2018 LUZMA TAVARES Ot B19.20 UNSPECIFIED VIRAL HEPATITIS C WITHOUT HE 11/02/2018 LUZMA TAVARES Ot F03.90 UNSPECIFIED DEMENTIA WITHOUT BEHAVIORAL 11/02/2018 LUZMA TAVARES Ot F20.9 SCHIZOPHRENIA, UNSPECIFIED 11/02/2018 LUZMA TAVARES Ot F32.9 MAJOR DEPRESSIVE DISORDER, SINGLE EPISOD 11/02/2018 LUZMA TAVARES Ot G40.909 EPILEPSY, UNSP, NOT INTRACTABLE, WITHOUT 11/02/2018 LUZMA TAVARES Ot I10 ESSENTIAL (PRIMARY) HYPERTENSION 11/02/2018 LUZMA TAVARES Ot R40.2142 COMA SCALE, EYES OPEN, SPONTANEOUS, EMR 11/02/2018 LUZMA TAVARES Ot R40.2252 COMA SCALE, BEST VERBAL RESPONSE, ORIENT 11/02/2018 LUZMA TAVARES Ot R40.2362 COMA SCALE, BEST MOTOR RESPONSE, OBEYS C 11/02/2018 LUZMA TAVARES Ot S00.81XA ABRASION OF OTHER PART OF HEAD, INITIAL 11/02/2018 LUZMA TAVARES Ot S09.90XA UNSPECIFIED INJURY OF HEAD, INITIAL ENCO 11/02/2018 LUZMA TAVARES Ot W06.XXXA FALL FROM BED, INITIAL ENCOUNTER 11/02/2018 LUZMA TAVARES Ot Y92.[address] IN [facility] PLACE 11/02/2018 LUZMA TAVARES Ot Z87.19 PERSONAL HISTORY OF OTHER DISEASES OF 07/02/2019 GELLENDER DO, AIDA Lyn Ot R21 RASH AND OTHER NONSPECIFIC SKIN ERUPTION 07/16/2019 GELLENDER DO, AIDA Lyn Ot R21 RASH AND OTHER NONSPECIFIC SKIN ERUPTION 08/05/2019 GELLENDER DO, AIDA Lyn Ot D64.9 ANEMIA, UNSPECIFIED Procedures Code Description Performed By Per formed On T1023 [place] keeping Screen - Initial John Spencer 01/06/2017 Results Test Result Range Comprehensive Metabolic Panel (CMP) - 07:58 Albumin 4.0 g/dL 3.5-4.8 Alkaline Phosphatase [...] NA >60 Urinalysis with reflex microscopic - 07:58 Appearance Clear NA Bilirubin Negative NA Negative Blood Negative NA Negative Color Yellow NA Glucose, Urine Negative Negative Ketones Negative Negative Leukocyte Esterase Negative NA Negative Nitrites Negative NA Negative pH 6.0 NA 5.0-8.0 Protein Negative NA Negative Specific [place] 1.020 NA 1.003-1.030 UA Collection type Not Specified NA Urobilinogen Negative mg/dL <1.0 Potassium - 06/03/16 09:29 Potassium 4.5 mEq/L 3.6-5.1 CBC With Platelet and Differential - 03/22 07:42 Absolute Basophils 0.01 10*3/uL 0.00-0.2 0 Absolute Eosinophils 0.07 10*3/uL 0.00-0 .50 Absolute Lymphocytes 1.30 10*3/uL 0.80-3 .30 Absolute Monocytes 0.50 10*3/uL 0.30-1.0 0 Absolute Neutrophils 3.01 10*3/uL 1.90-7 .00 Basophils 0 % 0-2 Eosinophils 1 % [...] K/uL 4.8-10.8 Comprehensive Metabolic Panel (CMP) - 07:42 Albumin 4.1 g/dL 3.5-4.8 Alkaline Phosphatase [...] mg/dl 4-20 Calcium Ionized Venous 1.06 mmol/L 1.19- 1.41 Creatinine Venous 0.8 mg/dL 0.7-1.2 Glucose Venous 95 mg/dL 70-100 Potassium, WB 3.9 mEq/L 3.6-5.1 Sodium Venous 142 mEq/L 136-144 Total CO2 Venous 26 mEq/L 25-29 Venous CL 106 mEq/L 99-109 HCT Venous 41.0 % 42.0-52.0 HGB Venous NPT 13.9 g/dL 14.0-18.0 Complete blood count (CBC) with automate d white blood cell (WBC) differential - 10/06/18 21:17 Blood leukocytes automated count (number/volume) 3.4 10*3/uL 4.3-11.0 Blood erythrocytes automated count (number/volume) 3.78 10*6/uL 4.35-5.85 Venous blood hemoglobin measurement (mass/volume) 12.5 g/dL 13.3-17.7 Blood hematocrit (volume fraction) 36 % 40-54 Automated erythrocyte mean corpuscular volume 95 [ foz_us] 80-99 Automated erythrocyte mean corpuscular h emoglobin (mass per erythrocyte) 33 pg 25-34 Automated erythrocyte mean corpuscular h emoglobin concentration measurement (mass/volume) 35 g/dL 32-36 Automated erythrocyte distribution width ratio 12. 7 % 10.0- 14.5 Automated blood platelet count (count/volume) 144 10*3/uL 130-400 Automated blood platelet mean volume measurement 9.7 [foz_us] 7.4-10.4 Automated blood neutrophils/100 leukocytes 59 % 42-75 Automated blood lymphocytes/100 leukocytes 30 % 12-44 Blood monocytes/100 leukocytes 11 % 0-12 Automated blood eosinophils/100 leukocytes 1 % 0-10 Automated blood basophils/100 leukocytes 0 % 0-10 Blood neutrophils automated count (number/volume) 2.0 10*3 1.8-7.8 Blood lymphocytes automated count (number/volume) 1.0 10*3 1.0-4.0 Blood monocytes automated count (number/volume) 0. 4 10*3 0.0-1.0 Automated eosinophil count 0.0 10*3/uL 0 .0-0.3 Automated blood basophil count (count/volume) 0.0 10*3/uL 0.0-0.1 PT panel in platelet poor plasma by coag ulation assay - 10/06/18 21:17 Prothrombin time (PT) in platelet poor plasma by coagu lation assay 14.1 s 12.2-14.7 INR in platelet poor plasma or blood by coagulation as say 1.1 0.8-1.4 Comprehensive metabolic panel - 10/06/18 21:17 Serum or plasma sodium measurement (moles/volume) 139 mmol/L 135-145 Serum or plasma potassium measurement (moles/volume) 4.1 mmol/L 3.6-5.0 Serum or plasma chloride measurement (moles/volume) 103 mmol/L 98-107 Carbon dioxide 26 mmol/L 21-32 Serum or plasma anion gap determination (moles/volume) 10 mmol/L 5-14 Serum or plasma urea nitrogen measurement (mass/volume ) 17 mg/dL 7-18 Serum or plasma creatinine measurement (mass/volume) 0.79 mg/dL 0.60-1.30 Serum or plasma urea nitrogen/creatinine mass ratio 22 NRG Serum or plasma creatinine measurement w ith calculation of estimated glomerular filtration rate > NRG Serum or plasma glucose measurement (mass/volume) 100 mg/dL 70-105 Serum or plasma calcium measurement (mass/volume) 9.7 mg/dL 8.5-10.1 Serum or plasma total bilirubin measurement (mass/volu me) 0.8 mg/dL 0.1-1.0 Serum or plasma alkaline phosphatase leela surement (enzymatic activity/volume) 54 U/L 40-136 Serum or plasma aspartate aminotransfera se measurement (enzymatic activity/volume) 23 U/L 5-34 Serum or plasma alanine aminotransferase measurement (enzymatic activity/volume) 19 U/L 0-55 Serum or plasma protein measurement (mass/volume) 6.7 g/dL 6.4-8.2 Serum or plasma albumin measurement (mass/volume) 4.4 g/dL 3.2-4.5 CALCIUM CORRECTED 9.4 mg/dL 8.5-10.1 Ammonia - 10/06/18 21:17 Ammonia 40 umol/L 11-32 Microscopic examination by JUNI preparati on - 06/29/19 15:15 JUNI RESULT NEGATIVE; NO FUNGAL ELEMENTS OBSERVED NRG Blood CBC with ordered manual differenti al panel - 07/30/19 11:14 Blood leukocytes automated count (number/volume) 5.3 10*3/uL 4.3-11.0 Blood erythrocytes automated count (number/volume) 3.77 10*6/uL 4.35-5.85 Venous blood hemoglobin measurement (mass/volume) 12.6 g/dL 13.3-17.7 Blood hematocrit (volume fraction) 38 % 40-54 Automated erythrocyte mean corpuscular volume 100 [foz_us] 80-99 Automated erythrocyte mean corpuscular h emoglobin (mass per erythrocyte) 33 pg 25-34 Automated erythrocyte mean corpuscular h emoglobin concentration measurement (mass/volume) 34 g/dL 32-36 Automated erythrocyte distribution width ratio 13. 5 % 10.0- 14.5 Automated blood platelet count (count/volume) 124 10*3/uL 130-400 Automated blood platelet mean volume measurement 9.3 [foz_us] 7.4-10.4 Automated blood neutrophils/100 leukocytes 46 % 42-75 Automated blood lymphocytes/100 leukocytes 39 % 12-44 Blood monocytes/100 leukocytes 16 % NRG Automated blood eosinophils/100 leukocytes 2 % 0-10 Automated blood basophils/100 leukocytes 0 % 0-10 Blood neutrophils automated count (number/volume) 2.4 10*3 1.8-7.8 Blood lymphocytes automated count (number/volume) 2.1 10*3 1.0-4.0 Blood monocytes automated count (number/volume) 0. 7 10*3 0.0-1.0 Automated eosinophil count 0.1 10*3/uL 0 .0-0.3 Automated blood basophil count (count/volume) 0.0 10*3/uL 0.0-0.1 Manual blood segmented neutrophils/100 leukocytes 40 % NRG Blood band neutrophils/100 leukocytes 3 % NRG Manual blood lymphocytes/100 leukocytes 40 % NRG Manual eosinophils/100 leukocytes in nose 1 % NRG Blood anisocytosis detection by light microscopy S LIGHT NRG Automated reticulocyte percentage - 07/08 09/23 11:14 Blood reticulocytes count (number/volume) 34 10*9/ L 24-90 Blood reticulocytes/100 erythrocytes 0.90 % 0.50-2.40 Serum or plasma ferritin measurement (ma ss/volume) - 07/30/19 11:14 Serum or plasma ferritin measurement (mass/volume) 382.6 % 32.0-356.0 Serum or plasma folate measurement (mass /volume) - 07/30/19 11:14 Serum or plasma folate measurement (mass/volume) 1 9.6 ng/mL >=4.0 Serum iron and total iron binding capaci ty panel - 07/30/19 11:14 TIBC 277 L 280-380 UIBC 183 ug/dL 55-450 Serum or plasma iron measurement (mass/volume) 94 ug/dL 40- 180 Total iron binding capacity and transferrin saturation measurement 34 % 15-50 VITAMIN B 12 - 07/30/19 11:14 VITAMIN B 12 1328 H 190-1100 Radiology Report from [id number] on 03/02 14:57:00 Reason For ExamupsetREPORTIndication: An xietyPortable chest 8:19 AMThere is scoliosis of the thoracic spine convex to the right. Heart size andpulmonary vascularity are normal. There are no infiltrates, effusions orpneumothoraces.Impression: No acute abnormalities in the chest.Dictated on workstation:[id number] Line FINAL DICTATED BY: PERI TOSCANO MDDICTATED DT/TM: 03/02/2016 8:25 AMSIGNED BY: PERI TOSCANO MDSIGNED (ELECTRONIC SIGNATURE): 03/02/2016 8:26 AMTECHNOLOGIST: KELI LI RT(R) Radiology Report from [id number] on 06/03 08:45:00 Reason For Examfall/ head injuryREPORTCL INICAL INDICATION: Patient status post fall with head [...] slight increased density amorphously seen within the r ight globe.Otherwise, the skull, extracranial soft tissue, and [...] disease with no acute fracture ordislocation.Dictated on workstation:[id number] Line PRELIMINARY DICTATED BY: AMANUEL TOLLIVER MDDICTATED DT/TM: 06/03/2016 8:30 Radiology Report from [id number] on 06/15 11:23:00 Reason For ExamHead InjuryREPORTINDICATI ON: Seizures, history of brain injury.Noncontrast brain CT is performed and compared with 06/03/2016.FINDINGS:There are diffuse atrophic changes. There are patchy low- density changes in thedeep white matter compatible with [...] globeare again noted and appear similar to 06/03/2016.Dictated on workstation:[id number] Line PRELIMINARY DICTATED BY: CHASTITY SRIVASTAVA MDDICTATED DT/TM: 06/15/2016 11:18 Radiology Report from [id number] on 08/29 13:23:00 Reason For Examfall, hx of TBI, head con tusionREPORTPROCEDURE: CT head and CT cervical spine without [...] evidence of acute cervical spinal abnormality.Dictated on workstation:[id number] Line PRELIMINARY DICTATED BY: ELIZABETH ELAM MDDICTATED DT/TM: 08/29/2017 8:52 Encounters ACCT No. Visit Date/Time Discharge Status Pt. Type Provider Facility Loc./Unit Complaint [id number] 01/06/2017 12:20:00 01/06/2017 23:5 9:59 CLS Outpatient [id number] 08/29/2017 07:33:00 018 10:33:00 DIS Emergency Altamirano Jacob [facility] on [facility] ED seizure [id number] 06/15/2016 07:05:00 017 12:27:00 DIS Emergency Hammer Denise [facility] on [facility] ED seizures [id number] 06/03/2016 07:03:00 016 10:38:00 DIS Emergency Zamora Daniel [facility] on [facility] ED seizure [id number] 03/02/2016 07:32:00 016 10:37:00 DIS Emergency Moises Johansen [facility] on [facility] ED SBH [id number] 09/24/2015 19:26:00 016 22:23:00 DIS Emergency Rashid Curtis DO [facility] on [facility] ED psych eval [id number] 02/07/2015 08:08:00 015 12:10:00 DIS Emergency Abdulaziz Ruiz [facility] on [facility] ED soa, abd pain, tbi [id number] 08/30/2017 05:19:20 Document Registration [id number] 06/16/2016 05:17:01 Document Registration [id number] 04/26/2015 05:17:17 Document Registration [id number] 04/22/2015 05:17:18 Document Registration [id number] 04/19/2015 05:16:32 Document Registration [id number] 04/18/2015 05:16:40 Document Registration [id number] 03/26/2015 13:43:52 Document Registration [id number] 03/26/2015 12:22:21 Document Registration [id number] 03/26/2015 12:01:40 Document Registration [id number] 03/26/2015 11:54:41 Document Registration [id number] 07/30/2019 10:58:00 23:59:59 CLS Outpatient GELLENDER DO, AIDA A [facility] LAB ANEMIA [id number] 06/29/2019 14:53:00 23:59:59 CLS Outpatient GELLENDER DO, AIDA A [facility] LAB RASH [id number] 11/22/2018 08:38:00 23:59:59 CLS Outpatient TACO SANCHEZ MD [facility] RAD INCONTENANCE [id number] 10/29/2018 18:06:00 019 19:36:00 DIS Emergency LUZMA TAVARES [facility] ER FALL [id number] 10/06/2018 21:01:00 00:15:00 DIS Emergency DIONNE LAGOS APRN [facility] ER AGGRESSION [id number] 06/15/2016 07:05:00 Document Registration [id number] 06/03/2016 07:03:00 Document Registration [id number] 06/21/2016 17:40:00 07/05/2016 16:00 :00 DIS Inpatient ARMINDA DIEHL, BRIAN [facility]
[2019-09-16] MEDS ORDERED: NS IV 1000 ML 1,000 ML IV SCH (08:52)
[2019-09-16] MEDS ORDERED: VANCOMYCIN INJECTION 750 MG in NS (IVPB) 100 ML IV ONE (09:00)
[2019-09-16] MEDS ORDERED: CEFEPIME INJECTION 1,000 MG in WATER (STERILE) FOR INJECTION 10 ML IV ONE (09:00)
--- NOTE | 2019-09-16 09:03 | ED Respiratory ---
General Stated Complaint: AMS Source: patient, EMS, longterm records Exam Limitations: clinical condition History of Present Illness Date Seen by Provider: Sep 16, 2019 Time Seen by Provider: 08:29 Initial Comments The patient presents to ER by EMS from [facility] with chief complaint of altered mental status since yesterday. He is having some loose productive cough yesterday and today was noted to have oxygen sats as low as 82% on room air per EMS. Blood sugar was 124. Patient is not complaining of anything. He does have behavioral disturbances on Haldol, Namenda, Depakote and Keppra for history of seizures and recently started Atarax and tramadol no witnessed seizure activity. He is usually conversational staff says he is unable to speak to them today. He's had no fevers or chills. No sick contacts. No travel. History of dementia, schizophrenia, major depressive disorder, traumatic brain injury, hepatitis C. 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 Patient is Dr. Ventura's. Allergies and Home Medications Allergies Coded Allergies: No Known Drug Allergies (Unverified , 10/06/18) Patient Home Medication List Home Medication List Reviewed: Yes Review of Systems Review of Systems Constitutional: see HPI (Patient unable to give any meaningful review of systems.); No fever; malaise, weakness EENTM: No ear discharge, No ear pain Respiratory: cough, phlegm, short of breath; No wheezing Cardiovascular: No Hx of Intervention, No vascular heart diseas All Other Systems Reviewed Negative Unless Noted: Yes Past Tjijzdu-Clynsh-Ypoiij Hx Patient Social History Alcohol Use: Denies Use Recreational Drug Use: No Smoking Status: Never a Smoker 2nd Hand Smoke Exposure: No Past Medical History Respiratory: No Cardiac: Yes Hypertension Neurological: Yes Dementia, Seizure Disorder, Traumatic Brain Injury Genitourinary: Yes Gastrointestinal: Yes Chronic Constipation Musculoskeletal: No Endocrine: No HEENT: Yes Loss of Vision: Right Cancer: No Psychosocial: Yes Schizophrenia, Depression Integumentary: No Blood Disorders: Yes (HEP C+ HEP B) Physical Exam Vital Signs - First Documented 09/16/19 08:35 Temp 36.9 Pulse 68 Resp 18 B/P (MAP) 137/85 (102) Pulse Ox 100 O2 Delivery Nasal Cannula O2 Flow Rate 5.00 Capillary Refill : Height: 5'8.00" Weight: 150lbs. oz. 68.201907jh; BMI Method:Estimated General Appearance: moderate distress, thin Eyes: Bilateral Eye Normal Inspection, Bilateral Eye PERRL, Bilateral Eye EOMI HEENT: PERRL/EOMI, TMs normal; No pharynx normal (Oropharynx is dry) Neck: full range of motion, normal inspection Respiratory: lungs clear, respiratory distress (Respiration 20-22 with diminished breath sounds and occasional loose cough), decreased breath sounds Cardiovascular: normal peripheral pulses, regular rate, rhythm Gastrointestinal: non tender, no organomegaly, abnormal bowel sounds (Quiescent), other (firm, nondistended abdominal muscles) Extremities: normal inspection, no pedal edema, slow capillary refill, other (Cool, pale) Neurologic/Psychiatric: other (GCS 10 point. He did answer yes and no to a couple questions although his answers are not always consistent) Skin: cool, pallor Focused Exam Lactate Level 09/16/19 08:54: Lactic Acid Level 2.07*H Lactic Acid Level Laboratory Tests Test 09/16/19 08:54 Lactic Acid Level 2.07 MMOL/L (0.50-2.00) *H Progress/Results/Core Measures Suspected Sepsis SIRS Temperature: Pulse: Respiratory Rate: Laboratory Tests 09/16/19 08:54: White Blood Count 5.6 Blood Pressure / Mean: 09/16/19 08:54: Lactic Acid Level 2.07*H Laboratory Tests 09/16/19 08:54: Creatinine 0.74, INR Comment 1.2, Platelet Count 114L, Total Bilirubin 0.8 Results/Orders Lab Results Laboratory Tests Test 09/16/19 08:42 09/16/19 08:54 09/16/19 09:00 09/16/19 09:07 Range/Units Blood Gas Puncture Site LR Blood Gas Patient Temperature 36.9 Arterial Blood pH 7.42 7.37-7.43 Arterial Blood Partial Pressure CO2 48 H 35-45 MMHG Arterial Blood Partial Pressure O2 34 *L 79-93 MMHG Arterial Blood HCO3 30 H 23-27 MMOL/L Arterial Blood Total CO2 31.4 H 21.0-31.0 MMOL/L Arterial Blood Oxygen Saturation 46 L 94-100 % Arterial Blood Base Excess 5.7 H -2.5-2.5 MMOL/L Hector Test P Blood Gas Ventilator Setting NO Blood Gas Inspired Oxygen 5L White Blood Count 5.6 4.3-11.0 10^3/uL Red Blood Count 3.61 L 4.35-5.85 10^6/uL Hemoglobin 12.1 L 13.3-17.7 G/DL Hematocrit 37 L 40-54 % Mean Corpuscular Volume 101 H 80-99 FL Mean Corpuscular Hemoglobin 34 25-34 PG Mean Corpuscular Hemoglobin Concent 33 32-36 G/DL Red Cell Distribution Width 13.1 10.0-14.5 % Platelet Count 114 L 130-400 10^3/uL Mean Platelet Volume 10.5 H 7.4-10.4 FL Neutrophils (%) (Auto) 64 42-75 % Lymphocytes (%) (Auto) 15 12-44 % Monocytes (%) (Auto) 22 H 0-12 % Eosinophils (%) (Auto) 0 0-10 % Basophils (%) (Auto) 0 0-10 % Neutrophils # (Auto) 3.6 1.8-7.8 X 10^3 Lymphocytes # (Auto) 0.8 L 1.0-4.0 X 10^3 Monocytes # (Auto) 1.2 H 0.0-1.0 X 10^3 Eosinophils # (Auto) 0.0 0.0-0.3 10^3/uL Basophils # (Auto) 0.0 0.0-0.1 10^3/uL Prothrombin Time 16.1 H 12.2-14.7 SEC INR Comment 1.2 0.8-1.4 Activated Partial Thromboplast Time 32 24-35 SEC D-Dimer 4.46 H 0.00-0.49 UG/ML Sodium Level 142 135-145 MMOL/L Potassium Level 4.0 3.6-5.0 MMOL/L Chloride Level 105 98-107 MMOL/L Carbon Dioxide Level 25 21-32 MMOL/L Anion Gap 12 5-14 MMOL/L Blood Urea Nitrogen 22 H 7-18 MG/DL Creatinine 0.74 0.60-1.30 MG/DL Estimat Glomerular Filtration Rate > 60 BUN/Creatinine Ratio 30 Glucose Level 96 70-105 MG/DL Glucometer 95 70-110 MG/DL Lactic Acid Level 2.07 *H 0.50-2.00 MMOL/L Calcium Level 8.9 8.5-10.1 MG/DL Corrected Calcium 9.5 8.5-10.1 MG/DL Total Bilirubin 0.8 0.1-1.0 MG/DL Aspartate Amino Transf (AST/SGOT) 25 5-34 U/L Alanine Aminotransferase (ALT/SGPT) 26 0-55 U/L Alkaline Phosphatase 53 40-136 U/L Lactate Dehydrogenase 218 125-220 U/L Troponin I < 0.028 <0.028 NG/ML C-Reactive Protein High Sensitivity 17.25 H 0.00-0.50 MG/DL Total Protein 6.9 6.4-8.2 GM/DL Albumin 3.3 3.2-4.5 GM/DL Procalcitonin 0.31 H <0.10 NG/ML Urine Color DARK YELLOW Urine Clarity CLEAR Urine pH 7.0 5-9 Urine Specific Faulkner 1.010 L 1.016-1.022 Urine Protein 1+ H NEGATIVE Urine Glucose (UA) TRACE H NEGATIVE Urine Ketones NEGATIVE NEGATIVE Urine Nitrite NEGATIVE NEGATIVE Urine Bilirubin NEGATIVE NEGATIVE Urine Urobilinogen 4.0 < = 1.0 MG/DL Urine Leukocyte Esterase NEGATIVE NEGATIVE Urine RBC (Auto) NEGATIVE NEGATIVE Urine RBC NONE /HPF Urine WBC 2-5 /HPF Urine Squamous Epithelial Cells 0-2 /HPF Urine Crystals PRESENT H /LPF Urine Amorphous Sediment FEW SHAHEEN URATES H /LPF Urine Bacteria TRACE /HPF Urine Casts NONE /LPF Urine Mucus MODERATE H /LPF Urine Culture Indicated CULTURE PENDING Test 09/16/19 09:58 Range/Units Blood Gas Puncture Site RR Blood Gas Patient Temperature 36.9 Arterial Blood pH 7.44 H 7.37-7.43 Arterial Blood Partial Pressure CO2 40 35-45 MMHG Arterial Blood Partial Pressure O2 67 L 79-93 MMHG Arterial Blood HCO3 27 23-27 MMOL/L Arterial Blood Total CO2 28.0 21.0-31.0 MMOL/L Arterial Blood Oxygen Saturation 94 94-100 % Arterial Blood Base Excess 2.8 H -2.5-2.5 MMOL/L Hector Test P Blood Gas Ventilator Setting NO Blood Gas Inspired Oxygen 4L Micro Results Microbiology 09/16/19 Influenza Types A,B Antigen (DILAN) - Final, Complete My Orders Orders - NEO MATSON Cbc With Automated Diff (09/16/19 08:52) Comprehensive Metabolic Panel (09/16/19 08:52) Blood Culture (09/16/19 08:52) Sputum Culture (09/16/19 08:52) Urinalysis (09/16/19 08:52) Urine Culture (09/16/19 08:52) Protime With Inr (09/16/19 08:52) Partial Thromboplastin Time (09/16/19 08:52) Chest 1 View, Ap/Pa Only (09/16/19 08:52) Ed Iv/Invasive Line Start (09/16/19 08:52) Ed Iv/Invasive Line Start (09/16/19 08:52) Ekg Tracing (09/16/19 08:52) Troponin I (09/16/19 08:52) Vital Signs Adult Sepsis Patie Q15M (09/16/19 08:52) O2 (09/16/19 08:52) Remove Rings In Anticipation O (09/16/19 08:52) Lactic Acid Analyzer (09/16/19 08:52) Influenza A And B Antigens (09/16/19 08:52) Ns Iv 1000 Ml (Sodium Chloride 0.9%) (09/16/19 08:52) Cefepime Injection (Maxipime Injection) (09/16/19 09:00) Accucheck Stat ONCE (09/16/19 08:52) Straight Cath For Spec.-Adult (09/16/19 08:52) Arterial Blood Gas (09/16/19 08:52) Fibrin Degradation Products (09/16/19 09:04) Procalcitonin (Pct) (09/16/19 09:04) Hs C Reactive Protein (09/16/19 09:04) LDH (09/16/19 09:04) Coronavirus Sars-Cov-2 So 2018 (09/16/19 09:04) Covid-19 Suspect Update (09/16/19 09:04) Ed Iv/Invasive Line Start (09/16/19 09:15) Ns Iv 500 Ml (Sodium Chloride 0.9%) (09/16/19 09:15) Levetiracetam Injection (Keppra Injectio (09/16/19 09:15) Vancomycin Injection (Vancomycin Injecti (09/16/19 09:24) Manual Differential (09/16/19 08:54) Arterial Blood Gas (09/16/19 10:15) Ct Angio Chest W (09/16/19 10:34) Medications Given in ED Current Medications Medications Dose Ordered Sig/Oscar Route Start Time Stop Time Status Last Admin Dose Admin Cefepime HCl 1000 mg/Sterile Water 10 ml @ 200 mls/hr ONCE ONCE IV 09/16/19 09:00 09/16/19 09:02 DC 09/16/19 09:52 200 MLS/HR Levetiracetam 1000 mg/Sodium Chloride 110 ml @ 440 mls/hr ONCE ONCE IV 09/16/19 09:15 09/16/19 09:29 DC 09/16/19 10:05 440 MLS/HR Vital Signs/I&O 09/16/19 08:35 Temp 36.9 Pulse 68 Resp 18 B/P (MAP) 137/85 (102) Pulse Ox 100 O2 Delivery Nasal Cannula O2 Flow Rate 5.00 Capillary Refill : Progress Note : Time: 09:12 Progress Note Delirium with hypoxia and a wet cough. Suspect pneumonia we'll do covert screening as well as influenza. We'll start with Zosyn and vancomycin, 20 mL/kg would be 1500 cc of fluids. He has not had his morning meds or any give him Keppra 1 g IV to prevent seizures. He's having some repetitive verbal groaning which according to notes from the longterm seems to be chronic for him. We'll get a d-dimer as well as LDH, pro calcitonin, CRP. EKG and troponin. UTI could be a source of his problems. If he does not make any urine after 1500 cc of fluid we'll just put a Duran catheter in to assess bladder volume. ECG Initial ECG Impression Date: Sep 16, 2019 Initial ECG Impression Time: 09:18 Initial ECG Rate: 74 Initial ECG Rhythm: Normal Sinus Initial ECG Intervals: Normal Initial ECG Impression: Normal Initial ECG Comparisson: No Previous ECG Available Comment Normal sinus rhythm without clinically relevant ST elevation or depression. Low voltage. Diagnostic Imaging Diagonstic Imaging: Xray Plain Films/CT/US/NM/MRI: chest Comments NAME: INNA JOHNSON MED REC#: [id number] PT STATUS: REG ER : 1955 PHYSICIAN: NEO MATSON MD ADMIT DATE: 09/16/19/ER Draft Date of Exam:09/16/19 CHEST 1 VIEW, AP/PA ONLY Indication: Altered mental status. Comparison: 10/06/2018 and 06/03/2016. Discussion: Single portable upright view of the chest was obtained. The patient appears to be slightly rotated to the right which may cause accentuation of the right mediastinal border. However underlying aneurysmal dilatation of the ascending aorta cannot be excluded. At a minimum, recommend two views of the chest with good inspiratory effort, otherwise CT may be required. Patchy infiltrates are noted within the right mid to lower lung concerning for pneumonia. Normal heart size. The left lung is well-aerated. No pneumothorax or osseous abnormality. Impression: 1. Prominence of the right mediastinal border may be due to patient positioning or underlying aneurysm. See above recommendations. 2. Patchy infiltrates within the right lung base. Dictated on workstation # [id number] Dict: 09/16/19 0952 Trans: 09/16/19 0955 [facility] [id number] Interpreted by: LAINA WATKINS MD Electronically signed by: Reviewed: Reviewed by Me Departure Communication (Admissions) Time/Spoke to Admitting Phy: 10:[address] Franklin she agrees to admit the patient to the ICU with antibiotics, pending COVID-19 screening and to get a CT angiogram on the way to the unit. Impression Primary Impression: Pneumonia Qualified Codes: J18.1 - Lobar pneumonia, unspecified organism Additional Impressions: Hypoxia Sepsis Qualified Codes: A41.9 - Sepsis, unspecified organism; R65.20 - Severe sepsis without septic shock; J96.01 - Acute respiratory failure with hypoxia Disposition: 09 ADMITTED INPATIENT Condition: Stable Admissions Decision to Admit Reason: Admit from ER (General) Decision to Admit/Date: Sep 16, 2019 Time/Decision to Admit Time: 10:47 Departure-Patient Inst. Referrals: AIDA VENTURA DO (PCP/Family) Primary Care Physician NEO MATSON Sep 16, 2019 09:03
[2019-09-16] MEDS ORDERED: LEVETIRACETAM INJECTION 1,000 MG in NS (IVPB) 100 ML IV ONE (09:15)
[2019-09-16] MEDS ORDERED: NS IV 500 ML 500 ML IV ONE (09:15)
[2019-09-16] MEDS ORDERED: VANCOMYCIN 1250 MG/NS 250 ML IVPB IV NR ×2 (09:24)
[2019-09-16 09:43] LABS: ABG BASE EXCESS 5.7 MMOL/L (-2.5-2.5); ABG OXYGEN SATURATION 46 % (94-100); ABG PCO2 48 MMHG (35-45); ABG PH 7.42 (7.37-7.43); ABG TCO2 31.4 MMOL/L (21.0-31.0)
[2019-09-16 09:46] LABS: ABG PO2 34 MMHG (79-93); ALLENS TEST P; INSPIRED O2 5L; VENTILATOR NO
[2019-09-16 09:46] LABS: BILIRUBIN,URINE NEGATIVE (NEGATIVE); CLARITY,URINE CLEAR; COLOR,URINE DARK YELLOW; GLUCOSE, URINE (UA) TRACE (NEGATIVE); KETONES,URINE NEGATIVE (NEGATIVE); LEUKOCYTE ESTERASE ,URINE NEGATIVE (NEGATIVE); NITRITE,URINE NEGATIVE (NEGATIVE); PROTEIN,URINE 1+ (NEGATIVE)
[2019-09-16 09:48] LABS: PATIENT TEMP 36.9
[2019-09-16 09:53] LABS: BASOPHILS % (AUTO) 0 % (0-10); EOSINOPHILS % (AUTO) 0 % (0-10); HEMATOCRIT 37 % (40-54); HEMOGLOBIN 12.1 G/DL (13.3-17.7); LYMPHOCYTES # (AUTO) 0.8 X 10^3 (1.0-4.0); LYMPHOCYTES % (AUTO) 15 % (12-44); MEAN CORPUSCULAR HEMOGLOBIN 34 PG (25-34); MEAN CORPUSCULAR HGB CONC 33 G/DL (32-36); MEAN CORPUSCULAR VOLUME 101 FL (80-99); MEAN PLATELET VOLUME 10.5 FL (7.4-10.4); MONOCYTES # (AUTO) 1.2 X 10^3 (0.0-1.0); MONOCYTES % (AUTO) 22 % (0-12); NEUTROPHILS # (AUTO) 3.6 X 10^3 (1.8-7.8); NEUTROPHILS % (AUTO) 64 % (42-75); PLATELET COUNT 114 10^3/uL (130-400); RED CELL DISTRIBUTION WIDTH 13.1 % (10.0-14.5); WHITE BLOOD COUNT 5.6 10^3/uL (4.3-11.0)
[2019-09-16 09:53] LABS: BACTERIA,URINE TRACE /HPF
[2019-09-16 09:54] LABS: AMORPHOUS SEDIMENT,UR FEW AMOR URATES /LPF; SQUAMOUS EPITHELIAL CELL,UR 0-2 /HPF
[2019-09-16 09:55] LABS: ALBUMIN 3.3 GM/DL (3.2-4.5); CHLORIDE 105 MMOL/L (98-107); SODIUM 142 MMOL/L (135-145)
--- NOTE | 2019-09-16 09:55 | Diagnostic Imaging Report ---
Indication: Altered mental status. Comparison: 10/06/2018 and 06/03/2016. Discussion: Single portable upright view of the chest was obtained. The patient appears to be slightly rotated to the right which may cause accentuation of the right mediastinal border. However underlying aneurysmal dilatation of the ascending aorta cannot be excluded. At a minimum, recommend two views of the chest with good inspiratory effort, otherwise CT may be required. Patchy infiltrates are noted within the right mid to lower lung concerning for pneumonia. Normal heart size. The left lung is well-aerated. No pneumothorax or osseous abnormality. Impression: 1. Prominence of the right mediastinal border may be due to patient positioning or underlying aneurysm. See above recommendations. 2. Patchy infiltrates within the right lung base. Dictated by: Dictated on workstation # [id number]
[2019-09-16 09:56] LABS: CALCIUM 8.9 MG/DL (8.5-10.1)
[2019-09-16 09:57] LABS: GLUCOSE 96 MG/DL (70-105); TOTAL PROTEIN 6.9 GM/DL (6.4-8.2)
[2019-09-16 09:58] LABS: CARBON DIOXIDE 25 MMOL/L (21-32)
[2019-09-16 09:59] LABS: BILIRUBIN,TOTAL 0.8 MG/DL (0.1-1.0)
[2019-09-16] MEDS ORDERED: VANCOMYCIN INJECTION 500 MG in NS (IVPB) 100 ML IV ONE (10:00)
[2019-09-16 10:01] LABS: ALKALINE PHOSPHATASE 53 U/L (40-136); CREATININE SERUM 0.74 MG/DL (0.60-1.30); GFR ESTIMATED > 60
[2019-09-16 10:02] LABS: BUN/CREATININE RATIO 30
[2019-09-16 10:04] LABS: ALANINE AMINOTRANSFERASE 26 U/L (0-55); FIBRIN DEGRADATION PRODUCTS 4.46 UG/ML (0.00-0.49); INR 1.2 (0.8-1.4); PROTHROMBIN TIME PATIENT 16.1 SEC (12.2-14.7)
[2019-09-16 10:20] LABS: ABG PCO2 40 MMHG (35-45); ABG PH 7.44 (7.37-7.43); ABG PO2 67 MMHG (79-93)
[2019-09-16 10:21] LABS: ABG BASE EXCESS 2.8 MMOL/L (-2.5-2.5); ABG OXYGEN SATURATION 94 % (94-100); ALLENS TEST P
[2019-09-16 10:22] LABS: INSPIRED O2 4L; PATIENT TEMP 36.9; VENTILATOR NO
[2019-09-16 10:44] LABS: BAND NEUTROPHILS 5 %; LYMPHOCYTES % (MANUAL) 19 %; MONOCYTES % (MANUAL) 13 %; NEUTROPHILS % (MANUAL) 63 %; RBC MORPH NORMAL
--- OUTSIDE RECORDS SUMMARY | 2019-09-16 11:07 | XMS REPORT | Continuity of Care Document ---
Author Organization Unknown Address Unknown Phone Unavailable Allergies Active Description Code Type Severity Reaction Onset Reported/Identified Relationship to Patient Clinical Status Yes No Known Allergies NKMA N/A N/A 09/13/2014 Yes No Known Drug Allergies [id number] Drug Allergy Unknown N/A 10/06/2018 Medications Medication [...] Reason 786.05 SHORTNESS OF BREATH 02/09/2015 Abdulaziz uRiz Final 789.06 ABDOMINAL PAIN, EPIGASTRIC 09/29/2015 Rashid [...] Daniel Final Y 92.[address] the place of occurrence of the externa 06/17/2016 Bruey,, Caro Reason R56 .9 Unspecified convulsions 07/05/2016 BRIAN HILLIARD MD B19.10 Unspecified viral hepatitis B without hepatic coma 07/05/2016 BRIAN HILLIARD MD B19.20 Unspecified viral hepatitis C without hepatic coma 07/05/2016 BRIAN HILLIARD MD E53.8 Deficiency of other specified B group vitamins 07/05/2016 BRIAN HILLIARD MD E88.09 [facility] disorders of plasma-protein metabolism, NEC 07/05/2016 BRIAN [...] R45.1 Restlessness and agitation 01/06/2017 F 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 John Spencer S 01/06/2017 F B19.10 Uns pecified viral hepatitis B without hepatic coma John Spencer S 01/06/2017 F F03.91 Uns pecified dementia with behavioral disturbance John Spencer S 01/06/2017 F F20.9 Schi zophrenia, unspecified John Spencer S 01/06/2017 F F32.9 Samantha r depressive disorder, single episode, unspecified John Spencer S 01/06/2017 F F41.9 Anxi ety disorder, unspecified John Spencer S 01/06/2017 F H53.9 Unsp ecified visual [...] Adarsh,Dave Final Y92.[address] in [address] as the place of occurrence of the externa 08/30/2017 [place] Final Z79.89 9 Other joint terminal attack controller (current) drug therapy 08/30/2017 Adarsh,Dave Final Z87.82 [...] UNSPECIFIED DEMENTIA WITHOUT BEHAVIORAL 10/09/2018 DIONNE LAGOS [employer] OFFICER Ot F20 .9 SCHIZOPHRENIA, UNSPECIFIED 10/09/2018 DIONNE LAGOS [employer] OFFICER Ot N32 .0 BLADDER-NECK OBSTRUCTION 10/09/2018 DIONNE LAGOS [employer] OFFICER Ot R45 .1 RESTLESSNESS AND AGITATION 10/09/2018 DIONNE LAGOS [employer] OFFICER Ot Z87.820 PERSONAL HISTORY OF TRAUMATIC BRAIN [...] LUZMA TAVARES Ot Y92.[address] IN SKILLED NURSING PLACE 10/29/2018 LUZMA TAVARES Ot Z87.19 PERSONAL [...] LUZMA TAVARES Ot Y92.[address] IN SKILLED NURSING PLACE 11/02/2018 LUZMA TAVARES Ot Z87.19 PERSONAL HISTORY OF OTHER DISEASES OF 07/02/2019 GELLENDER DO, AIDA Lyn Ot R21 RASH AND OTHER NONSPECIFIC SKIN ERUPTION 07/16/2019 GELLENDER DO, AIDA Lyn Ot R21 RASH AND OTHER NONSPECIFIC SKIN ERUPTION 08/05/2019 GELLENDER DO, AIDA Lyn Ot D64.9 ANEMIA, UNSPECIFIED Procedures Code Description Performed By Per formed On T1023 [place] keeping Screen - Initial oJhn Spencer 01/06/2017 Results Test Result Range Comprehensive [...] NA 5.0-8.0 Protein Negative NA Negative Specific [place] 1.020 NA 1.003-1.030 UA Collection type Not [...] 11:14 VITAMIN B 12 1328 H 190-1100 Arterial blood gas measurement - 0 08:42 Blood pCO2 48 mm[Hg] 35-45 Blood pO2 34 mm[Hg] 79-93 Arterial blood bicarbonate measurement (moles/volume) 30 mmol/L 23-27 Arterial blood base excess by calculation 5.7 mmol /L -2.5-2.5 Arterial blood oxygen saturation measurement 46 % 94-100 * Inhaled oxygen flow rate 5L NRG Arterial blood pH measurement with patient temperature correction 7.42 7.37-7.43 Arterial blood carbon dioxide, total measurement (mole s/volume) 31.4 mmol/L 21.0-31.0 Body site LR NRG Assessment of wrist artery patency prior to arterial p uncture P NRG Setting of ventilation mode NO NR G Measurement of body temperature 36.9 NRG Capillary blood glucose measurement by g lucometer (mass/volume) - 09/16/19 08:54 Capillary blood glucose measurement by glucometer (mas s/volume) 95 mg/dL 70-110 Comprehensive metabolic panel - 09/16/19 08:54 Serum or plasma sodium measurement (moles/volume) 142 mmol/L 135-145 Serum or plasma potassium measurement (moles/volume) 4.0 mmol/L 3.6-5.0 Serum or plasma chloride measurement (moles/volume) 105 mmol/L 98-107 Carbon dioxide 25 mmol/L 21-32 Serum or plasma anion gap determination (moles/volume) 12 mmol/L 5-14 Serum or plasma urea nitrogen measurement (mass/volume ) 22 mg/dL 7-18 Serum or plasma creatinine measurement (mass/volume) 0.74 mg/dL 0.60-1.30 Serum or plasma urea nitrogen/creatinine mass ratio 30 NRG Serum or plasma creatinine measurement w ith calculation of estimated glomerular filtration rate > NRG Serum or plasma glucose measurement (mass/volume) 96 mg/dL 70-105 Serum or plasma calcium measurement (mass/volume) 8.9 mg/dL 8.5-10.1 Serum or plasma total bilirubin measurement (mass/volu me) 0.8 mg/dL 0.1-1.0 Serum or plasma alkaline phosphatase leela surement (enzymatic activity/volume) 53 U/L 40-136 Serum or plasma aspartate aminotransfera se measurement (enzymatic activity/volume) 25 U/L 5-34 Serum or plasma alanine aminotransferase measurement (enzymatic activity/volume) 26 U/L 0-55 Serum or plasma protein measurement (mass/volume) 6.9 g/dL 6.4-8.2 Serum or plasma albumin measurement (mass/volume) 3.3 g/dL 3.2-4.5 CALCIUM CORRECTED 9.5 mg/dL 8.5-10.1 Complete blood count (CBC) with automate d white blood cell (WBC) differential - 09/16/19 08:54 Blood leukocytes automated count (number/volume) 5.6 10*3/uL 4.3-11.0 Blood erythrocytes automated count (number/volume) 3.61 10*6/uL 4.35-5.85 Venous blood hemoglobin measurement (mass/volume) 12.1 g/dL 13.3-17.7 Blood hematocrit (volume fraction) 37 % 40-54 Automated erythrocyte mean corpuscular volume 101 [foz_us] 80-99 Automated erythrocyte mean corpuscular h emoglobin (mass per erythrocyte) 34 pg 25-34 Automated erythrocyte mean corpuscular h emoglobin concentration measurement (mass/volume) 33 g/dL 32-36 Automated erythrocyte distribution width ratio 13. 1 % 10.0- 14.5 Automated blood platelet count (count/volume) 114 10*3/uL 130-400 Automated blood platelet mean volume measurement 10.5 [foz_us] 7.4-10.4 Automated blood neutrophils/100 leukocytes 64 % 42-75 Automated blood lymphocytes/100 leukocytes 15 % 12-44 Blood monocytes/100 leukocytes 22 % 0-12 Automated blood eosinophils/100 leukocytes 0 % 0-10 Automated blood basophils/100 leukocytes 0 % 0-10 Blood neutrophils automated count (number/volume) 3.6 10*3 1.8-7.8 Blood lymphocytes automated count (number/volume) 0.8 10*3 1.0-4.0 Blood monocytes automated count (number/volume) 1. 2 10*3 0.0-1.0 Automated eosinophil count 0.0 10*3/uL 0 .0-0.3 Automated blood basophil count (count/volume) 0.0 10*3/uL 0.0-0.1 Blood lactic acid measurement (moles/vol ume) - 09/16/19 08:54 Blood lactic acid measurement (moles/volume) 2.07 mmol/L 0.50-2.00 Serum ragweed IgE antibody assay - 09/15 08:54 Serum ragweed IgE antibody assay 218 U/L 125-220 PT panel in platelet poor plasma by coag ulation assay - 09/16/19 08:54 Prothrombin time (PT) in platelet poor plasma by coagu lation assay 16.1 s 12.2-14.7 INR in platelet poor plasma or blood by coagulation as say 1.2 0.8-1.4 Activated partial thromboplastin time (a PTT) in platelet poor plasma bycoagulation assay - 09/16/19 08:54 Activated partial thromboplastin time (a PTT) in platelet poor plasma bycoagulation assay 32 s 24-35 Fibrin D-dimer FEU measurement in platel et poor plasma (mass/volume) - 09/16/19 08:54 Fibrin D-dimer FEU measurement in platelet poor plasma (mass/volume) 4.46 ug/mL 0.00-0.49 PROCALCITONIN (PCT) - 09/16/19 08:54 PROCALCITONIN (PCT) 0.31 ng/mL <0.10 Serum or plasma troponin i.cardiac measu rement (mass/volume) - 09/16/19 08:54 Serum or plasma troponin i.cardiac measurement (mass/v olume) < ng/mL <0.028 Serum or plasma C reactive protein measu rement (mass/volume) - 09/16/19 08:54 Serum or plasma C reactive protein measurement (mass/v olume) 17.25 mg/dL 0.00-0.50 Manual absolute plasma cell count - 09/04 07/26 08:54 Blood monocytes/100 leukocytes 13 % NRG Manual blood segmented neutrophils/100 leukocytes 63 % NRG Blood band neutrophils/100 leukocytes 5 % NRG Manual blood lymphocytes/100 leukocytes 19 % NRG Blood erythrocyte morphology finding identification NORMAL NRG Complete urinalysis with reflex to cultu re - 09/16/19 09:00 Urine color determination DARK YELLOW N RG Urine clarity determination CLEAR NR G Urine pH measurement by test strip 7.0 5-9 Specific gravity of urine by test strip 1.010 1.016-1.022 Urine protein assay by test strip, semi-quantitative 1+ NEGATIVE Urine glucose detection by automated test strip TR MODESTA NEGATIVE Erythrocytes detection in urine sediment by light micr oscopy NEGATIVE NEGATIVE Urine ketones detection by automated test strip NE GATIVE NEGATIVE Urine nitrite detection by test strip NEGATIVE NEGATIVE Urine total bilirubin detection by test strip NEGA TIVE NEGATIVE Urine urobilinogen measurement by automated test strip (mass/volume) 4.0 mg/dL < = 1.0 Urine leukocyte esterase detection by dipstick NEG ATIVE NEGATIVE Automated urine sediment erythrocyte cou nt by microscopy (number/high power field) NONE NRG Automated urine sediment leukocyte count by microscopy (number/high power field) [HPF] NRG Bacteria detection in urine sediment by light microsco py TRACE NRG Squamous epithelial cells detection in u rine sediment by light microscopy 0-2 NRG Crystals detection in urine sediment by light microsco py PRESENT NRG Casts detection in urine sediment by light microscopy NONE NRG Mucus detection in urine sediment by light microscopy MODERATE NRG Complete urinalysis with reflex to culture CULTURE PENDING NRG Amorphous sediment detection in urine sediment by ligh t microscopy FEW SHAHEEN URATES NRG Influenza virus A and B antigen detectio n - 09/16/19 09:07 FLU RESULT NEGATIVE FOR INFLUENZA A AND B ANTIGENS BY IA NRG Arterial blood gas measurement - 0 09:58 Blood pCO2 40 mm[Hg] 35-45 Blood pO2 67 mm[Hg] 79-93 Arterial blood bicarbonate measurement (moles/volume) 27 mmol/L 23-27 Arterial blood base excess by calculation 2.8 mmol /L -2.5-2.5 Arterial blood oxygen saturation measurement 94 % 94-100 * Inhaled oxygen flow rate 4L NRG Arterial blood pH measurement with patient temperature correction 7.44 7.37-7.43 Arterial blood carbon dioxide, total measurement (mole s/volume) 28.0 mmol/L 21.0-31.0 Body site RR NRG Assessment of wrist artery patency prior to arterial p uncture P NRG Setting of ventilation mode NO NR G Measurement of body temperature 36.9 NRG Radiology Report from [id number] on 03/02 14:57:00 Reason For ExamupsetREPORTIndication: An xietyPortable chest 8:19 AMThere is scoliosis of the thoracic spine convex to the right. Heart size andpulmonary vascularity are normal. There are no infiltrates, effusions orpneumothoraces.Impression: No acute abnormalities in the chest.Dictated on workstation:[id number] Line FINAL DICTATED BY: PERI TOSCANO MDDICTATED DT/TM: 03/02/2016 8:25 AMSIGNED BY: PERI TOSCANO MDSIGNED (ELECTRONIC SIGNATURE): 03/02/2016 8:26 AMTECHNOLOGIST: KELI LI RT(R) Radiology Report from [id number] on 06/03 08:45:00 Reason For Examfall/ head [...] disease with no acute fracture ordislocation.Dictated on workstation:[id number] Line PRELIMINARY DICTATED BY: AMANUEL TOLLIVER MDDICTATED DT/TM: 06/03/2016 8:30 Radiology Report from [id number] on 06/15 11:23:00 Reason For ExamHead InjuryREPORTINDICATI [...] noted and appear similar to 06/03/2016.Dictated on workstation:[id number] Line PRELIMINARY DICTATED BY: CHASTITY SRIVASTAVA MDDICTATED DT/TM: 06/15/2016 11:18 Radiology Report from [id number] on 08/29 13:23:00 Reason For Examfall, hx [...] evidence of acute cervical spinal abnormality.Dictated on workstation:[id number] Line PRELIMINARY DICTATED BY: ELIZABETH ELAM MDDICTATED DT/TM: 08/29/2017 8:52 Encounters ACCT No. Visit Date/Time Discharge Status Pt. Type Provider Facility Loc./Unit Complaint [id number] 01/06/2017 12:20:00 01/06/2017 23:5 9:59 CLS Outpatient [id number] 08/29/2017 07:33:00 018 10:33:00 DIS Emergency [place] [facility] ED seizure [id number] 06/15/2016 07:05:00 017 12:27:00 DIS Emergency Harman,Caro [facility] on [facility] ED seizures [id number] 06/03/2016 07:03:00 016 10:38:00 DIS Emergency Zamora,Helio [facility] on [facility] ED seizure [id number] 03/02/2016 07:32:00 016 10:37:00 DIS Emergency Kayleeabdi Moises Lyn [facility] on [facility] ED SBH [id number] 09/24/2015 19:26:00 016 22:23:00 DIS Emergency Rashid Curtis DO [facility] on [facility] ED psych eval [id number] 02/07/2015 08:08:00 015 12:10:00 DIS Emergency Abdulaziz Ruiz V [facility] on [facility] ED soa, abd pain, tbi [id number] 08/30/2017 05:19:20 Document Registration [id number] 06/16/2016 05:17:01 Document Registration [id number] 04/26/2015 05:17:17 Document Registration [id number] 04/22/2015 05:17:18 Document Registration [id number] 04/19/2015 05:16:32 Document Registration [id number] 04/18/2015 05:16:40 Document Registration [id number] 03/26/2015 13:43:52 Document Registration [id number] 03/26/2015 12:22:21 Document Registration [id number] 03/26/2015 12:01:40 Document Registration [id number] 03/26/2015 11:54:41 Document Registration [id number] 07/30/2019 10:58:00 020 23:59:59 CLS Outpatient AIDA VENTURA DO [facility] LAB ANEMIA [id number] 06/29/2019 14:53:00 23:59:59 CLS Outpatient AIDA VENTURA DO [facility] LAB RASH [id number] 11/22/2018 08:38:00 23:59:59 CLS Outpatient TACO SANCHEZ MD [facility] RAD INCONTENANCE [id number] 10/29/2018 18:06:00 19:36:00 DIS Emergency LUZMA TAVARES [facility] ER FALL [id number] 10/06/2018 21:01:00 00:15:00 DIS Emergency DIONNE LAGOS APRN [facility] ER AGGRESSION [id number] 09/16/2019 09:18:00 Document Registration [id number] 06/15/2016 07:05:00 Document Registration [id number] 06/03/2016 07:03:00 Document Registration [id number] 06/21/2016 17:40:00 07/05/2016 16:00 :00 DIS Inpatient ARMINDA DIEHL, BRIAN [facility]
[2019-09-16] MEDS ORDERED: RX-NAPROXEN (NAPROSYN) 250 MG TAB PPK#4 PO STA (11:22)
[2019-09-16] MEDS ORDERED: IOHEXOL 350 MG/ML 100 ML (OMNIPAQUE 350) VIAL IV ONE (12:00)
[2019-09-16] MEDS ORDERED: ACETAMINOPHEN 325 MG TABLET PO PRN ×2 (12:00→19:00)
[2019-09-16] MEDS ORDERED: HOLD METFORMIN - RECEIVED CONTRAST 20 ML VIAL IV SCH (12:00)
[2019-09-16] MEDS ORDERED: NS 100 ML (IVPB) BAG IV ONE (12:00)
[2019-09-16] MEDS ORDERED: ONDANSETRON 4 MG/2 ML (SDV) Z0FRAN IV PRN (12:00)
--- NOTE | 2019-09-16 12:09 | Diagnostic Imaging Report ---
PROCEDURE: CT angiography of the chest with contrast. TECHNIQUE: Multiple contiguous axial images were obtained through the chest after uneventful bolus administration of intravenous contrast. 3D reconstructed CTA MIP acquisitions were also performed. Auto Exposure Controls were utilized during the CT exam to meet ALARA standards for radiation dose reduction. Indication: Dyspnea, aortic aneurysm. Comparison: Chest film same date. Discussion: Aneurysmal dilatation of the ascending aorta measuring 4.8 x 5.3 cm. There is no pulmonary embolus identified. Patchy consolidation is noted within the right lung base and to a lesser degree the left lung base, likely pneumonia. Small right pleural effusion. Normal heart size. Mild emphysema is noted. Additional groundglass infiltrates within the right upper lobe and left upper lobe likely represent additional pneumonia. No solid nodule identified. No adenopathy. The visualized upper abdomen is unremarkable. Severe T9 compression fracture, likely chronic. Additional mild compression deformities throughout the majority of the central thoracic spine again likely chronic. No acute osseous abnormality. Impression: 1. Aneurysmal dilatation of the ascending aorta measuring up to 5.3 cm. 2. Patchy infiltrates within the lungs, particularly the right lung base, likely pneumonia. Small right pleural effusion. Dictated by: Dictated on workstation # [id number]
[2019-09-16] MEDS: 1/2 NS IV SOLUTION 1,000 ML IV SCH ×2 (12:19→17:45)
--- NOTE | 2019-09-16 13:38 | History & Physical-Hospitalist ---
History of Present Illness HPI/Chief Complaint Pt is a 64yoCM with a PMH of schizophrenia, dementia, who presented to the ER from [facility] due to cough and altered mental status. He is unable to provide me any history so all history is obtained from the records. Reportedly he was coughing and found to be hypoxic with an oxygen saturation of 82%. he was sent via EMS here for evaluation and CXR revealed RLL pneumonia with lactic acidosis. He was admitted for severe sepsis. At this time he is lying in bed and groaning. The only question he answered was saying yes when I asked if he name was Morgan. Per RN report he received was that this is near his baseline. Source: patient Date Seen 09/16/19 Time Seen by a Provider: 13:29 Attending Physician Sahra Franklin MD PCP Keaton Grayson DO Referring Physician Date of Admission Sep 16, 2019 at 10:40 Home Medications & Allergies Home Medications Reviewed patient Home Medication Reconciliation performed by pharmacy medication reconciliations surveillance camera technician and/or nursing. Patients Allergies have been reviewed. Allergies Allergies Coded Allergies No Known Drug Allergies (Unverified10/06/18) Past Srhpcoi-Unokht-Aaxarr Hx Past Med/Social Hx: Reviewed Nursing Past Med/Soc Hx Patient Social History Employed/Student: retired Alcohol Use: Denies Use Recreational Drug Use: No Smoking Status: Never a Smoker 2nd Hand Smoke Exposure: No Recent Foreign Travel: No Contact w/other who traveled: No Recent Infectious Disease Expo: No Past Medical History Cardiac: Hypertension Neurological: Dementia, Seizure Disorder, Traumatic Brain Injury Genitourinary: Prostate Problems Gastrointestinal: Chronic Constipation, Hepatitis Loss of Vision: Right Psychosocial: Schizophrenia, Depression History of Blood Disorders: Yes (HEP C+ HEP B) Family History Reviewed Nursing Family Hx Review of Systems ROS-Unable to Obtain: altered mental status Constitutional: see HPI Physical Exam Physical Exam Vital Signs Vital Signs - First Documented 09/16/19 08:35 Temp 36.9 Pulse 68 Resp 18 B/P (MAP) 137/85 (102) Pulse Ox 100 O2 Delivery Nasal Cannula O2 Flow Rate 5.00 Capillary Refill : Greater Than 3 Seconds Height, Weight, BMI Height: 5'8.00" Weight: 150lbs. oz. 68.790009on; 21.00 BMI Method:Estimated General Appearance: Chronically ill, Thin, Other (laying in bed on side, groans occasionallyl) Respiratory: No Accessory Muscle Use, Decreased Breath Sounds; No Wheezing Cardiovascular: Regular Rate, Rhythm, No Murmur Gastrointestinal: Normal Bowel Sounds, Non Tender, Soft; No Distended Extremity: No Calf Tenderness, No Pedal Edema Neurologic/Psychiatric: Other (alert but does not answer any questions) Results Results/Procedures Labs Laboratory Tests 09/16/19 08:54 09/17/19 02:20 Patient resulted labs reviewed. Imaging: Reviewed Imaging Report Imaging Date of Exam:09/16/19 CT ANGIO CHEST W PROCEDURE: CT angiography of the chest with contrast. TECHNIQUE: Multiple contiguous axial images were obtained through the chest after uneventful bolus administration of intravenous contrast. 3D reconstructed CTA MIP acquisitions were also performed. Auto Exposure Controls were utilized during the CT exam to meet ALARA standards for radiation dose reduction. Indication: Dyspnea, aortic aneurysm. Comparison: Chest film same date. Discussion: Aneurysmal dilatation of the ascending aorta measuring 4.8 x 5.3 cm. There is no pulmonary embolus identified. Patchy consolidation is noted within the right lung base and to a lesser degree the left lung base, likely pneumonia. Small right pleural effusion. Normal heart size. Mild emphysema is noted. Additional groundglass infiltrates within the right upper lobe and left upper lobe likely represent additional pneumonia. No solid nodule identified. No adenopathy. The visualized upper abdomen is unremarkable. Severe T9 compression fracture, likely chronic. Additional mild compression deformities throughout the majority of the central thoracic spine again likely chronic. No acute osseous abnormality. Impression: 1. Aneurysmal dilatation of the ascending aorta measuring up to 5.3 cm. 2. Patchy infiltrates within the lungs, particularly the right lung base, likely pneumonia. Small right pleural effusion. Assessment/Plan Admission Diagnosis Severe Sepsis Admission Status: Inpatient Order (span 2 midnights) Reason for Inpatient Admission: IV abx, hypoxia, await cultures, COVID rule out Assessment and Plan Severe Sepsis HCAP Hypoxic respiratory failure PNA on CXR Lactic acidosis noted Continue on abx Await cultures Given significant hypoxia and very elevated CRP with minimally elevated procalcitonin COVID testing done D dimer elevated- CTA done Schizophrenia Dementia Continue home medications Mostly cooperate with care at this time HTN Continue Losartan SHARA FRANKLIN MD Sep 16, 2019 13:38
[2019-09-16 16:40] LABS: ABG OXYGEN SATURATION 93 % (94-100); ABG PCO2 36 MMHG (35-45); ABG PH 7.46 (7.37-7.43); ABG PO2 65 MMHG (79-93); ABG TCO2 26.5 MMOL/L (21.0-31.0)
[2019-09-16 16:42] LABS: ALLENS TEST YES-POS; INSPIRED O2 5L; PATIENT TEMP 37.4; VENTILATOR NO
[2019-09-16] MEDS: CEFEPIME 1,000 MG/SWFI 10 ML IV PUSH IV SCH ×4 (16:44→21:17)
[2019-09-16] MEDS: ALBUTEROL/IPRATROP (COMBIVENT RESPIMAT) 4 GM INHALER IH SCH (18:27)
[2019-09-16] MEDS ORDERED: BENZ2TAB6 PO (18:34)
[2019-09-16] MEDS ORDERED: TRM50T PO (18:58)
[2019-09-16] MEDS ORDERED: SENN-234 PO (18:58)
[2019-09-16] MEDS ORDERED: LOSA25TA41 PO (18:58)
[2019-09-16] MEDS ORDERED: DOCU100C37 PO (18:58)
[2019-09-16] MEDS ORDERED: MEMA28CA PO (18:58)
[2019-09-16] MEDS ORDERED: HYDR-700 PO (18:58)
[2019-09-16] MEDS ORDERED: TRIA430O4 TP (18:58)
[2019-09-16] MEDS ORDERED: TRZ50T PO (18:58)
[2019-09-16] MEDS ORDERED: RT-ALBUINH INH (18:58)
[2019-09-16] MEDS ORDERED: MAGN400O7 PO (18:58)
[2019-09-16] MEDS ORDERED: SERT50TA2 PO (18:58)
[2019-09-16] MEDS ORDERED: MULT-1136 PO (18:58)
[2019-09-16] MEDS ORDERED: BISA5TAB8 PO (18:58)
[2019-09-16] MEDS ORDERED: POLY17PO6 PO (18:58)
[2019-09-16] MEDS ORDERED: CYAN100088 PO (18:58)
[2019-09-16] MEDS ORDERED: LORA10TA76 PO (18:58)
[2019-09-16] MEDS ORDERED: FOLI0.8T PO (18:58)
[2019-09-16] MEDS ORDERED: DIVA125C PO (18:58)
[2019-09-16] MEDS ORDERED: HALO50AM2 IM (18:58)
[2019-09-16] MEDS ORDERED: BISA10SU8 RC (18:58)
[2019-09-16] MEDS ORDERED: LEVE100015 PO (18:58)
[2019-09-16] MEDS ORDERED: ACET325T49 PO (18:58)
[2019-09-16] MEDS ORDERED: MELA5TAB14 PO (18:58)
[2019-09-16] MEDS ORDERED: BISACODYL 10 MG SUPP (DULCOLAX) RC PRN (19:00)
[2019-09-16] MEDS ORDERED: MILK OF MAGNESIA 400 MG/5 ML 30 ML UDC PO PRN (19:00)
[2019-09-16] MEDS ORDERED: NON-FORMULARY MEDICATION 1 EA EA (Melatonin 10 MG) PO SCH (19:00)
[2019-09-16] MEDS ORDERED: BISACODYL 5 MG (DULCOLAX) TABLET PO PRN (19:00)
[2019-09-16] MEDS ORDERED: LIDOCAINE UROJET 2% GEL 10 ML PKG TOP ONE (19:30)
[2019-09-16] MEDS ORDERED: dilTIAZem DRIP PRE-MIX 0 ML IV ONE (20:27)
[2019-09-16] MEDS ORDERED: NS (IVPB) 250 ML ONE (20:36)
[2019-09-16] MEDS ORDERED: VANCOMYCIN 1000 MG/VIAL ONE (20:36)
[2019-09-16] MEDS ORDERED: NON-FORMULARY MEDICATION 1 EA EA (Hydroxyzine HCl 25 MG) PO SCH (21:00)
[2019-09-16] MEDS ORDERED: NON-FORMULARY MEDICATION 1 EA EA (Benztropine Mesylate 2 MG) PO SCH (21:00)
[2019-09-16] MEDS: LEVETIRACETAM 1,000 MG/NS 100 ML IVPB IV SCH ×2 (21:11)
[2019-09-16] MEDS: LEVETIRACETAM 1,000 MG (KEPPRA) TABLET PO SCH (21:15)
[2019-09-16] MEDS: VANCOMYCIN 1 GM/NS 250 ML IVPB IV SCH ×2 (21:17)
[2019-09-16] MEDS: MELATONIN 10 MG TABLET PO PRN (21:22)
[2019-09-16] MEDS: traZODone 50 MG (DESYREL) TAB PO SCH (21:22)
[2019-09-16] MEDS: hydrOXYzine (VISTARIL/ATARAX) 25 MG capsule/tablet PO SCH (23:30)
[2019-09-16] MEDS: DIVALPROX SPRINKLE 125 MG (DEPAKOTE) CAP PO SCH (23:30)
[2019-09-16] MEDS: BENZTROPINE MESYLATE 1 MG (COGENTIN) TAB PO SCH (23:30)
[2019-09-17] VITALS (24 sets, daily range): BP systolic 86–133; BP diastolic 58–93
[2019-09-17] MEDS: ALBUTEROL/IPRATROP (COMBIVENT RESPIMAT) 4 GM INHALER IH SCH ×6 (02:17→22:28)
[2019-09-17 03:29] LABS: CHLORIDE 108 MMOL/L (98-107); POTASSIUM 4.2 MMOL/L (3.6-5.0); SODIUM 140 MMOL/L (135-145)
[2019-09-17 03:30] LABS: CALCIUM 7.9 MG/DL (8.5-10.1)
[2019-09-17 03:31] LABS: GLUCOSE 97 MG/DL (70-105)
[2019-09-17 03:32] LABS: CARBON DIOXIDE 21 MMOL/L (21-32)
[2019-09-17 03:34] LABS: PHOSPHORUS 3.9 MG/DL (2.3-4.7)
[2019-09-17 03:35] LABS: BUN/CREATININE RATIO 34; CREATININE SERUM 0.59 MG/DL (0.60-1.30); GFR ESTIMATED > 60
[2019-09-17 03:41] LABS: BASOPHILS % (AUTO) 0 % (0-10); EOSINOPHILS % (AUTO) 0 % (0-10); HEMATOCRIT 34 % (40-54); HEMOGLOBIN 11.4 G/DL (13.3-17.7); LYMPHOCYTES # (AUTO) 0.7 X 10^3 (1.0-4.0); LYMPHOCYTES % (AUTO) 11 % (12-44); MEAN CORPUSCULAR HEMOGLOBIN 34 PG (25-34); MEAN CORPUSCULAR HGB CONC 34 G/DL (32-36); MEAN CORPUSCULAR VOLUME 100 FL (80-99); MEAN PLATELET VOLUME 10.3 FL (7.4-10.4); MONOCYTES # (AUTO) 0.9 X 10^3 (0.0-1.0); MONOCYTES % (AUTO) 16 % (0-12); NEUTROPHILS # (AUTO) 4.3 X 10^3 (1.8-7.8); NEUTROPHILS % (AUTO) 73 % (42-75); PLATELET COUNT 123 10^3/uL (130-400); WHITE BLOOD COUNT 5.9 10^3/uL (4.3-11.0)
[2019-09-17] MEDS: 1/2 NS IV SOLUTION 1,000 ML IV SCH ×2 (03:51→11:42)
[2019-09-17] MEDS: POTASSIUM CL 10MEQ/50ML IVPB 50 ML IV SCH (04:17)
[2019-09-17] MEDS: KCL 20 MEQ TAB (K-DUR) PO SCH (04:17)
[2019-09-17] MEDS: MAGNESIUM 1 GM/100 ML IVPB 100 ML IV SCH (04:17)
[2019-09-17] MEDS: CEFEPIME 1,000 MG/SWFI 10 ML IV PUSH IV SCH ×8 (05:29→21:21)
[2019-09-17 05:45] LABS: ABG BASE EXCESS 1.5 MMOL/L (-2.5-2.5); ABG OXYGEN SATURATION 99 % (94-100); ABG PCO2 34 MMHG (35-45); ABG PH 7.47 (7.37-7.43); ABG PO2 101 MMHG (79-93); ABG TCO2 26.1 MMOL/L (21.0-31.0); ALLENS TEST POSITIVE; INSPIRED O2 5; VENTILATOR NO
--- NOTE | 2019-09-17 06:03 | Pulmonary Consultation ---
History of Present Illness History of Present Illness Date Seen by Provider: Sep 17, 2019 Time Seen by Provider: 05:58 Date of Admission History of Present Illness 64yo poor historian cynthia hx of MR, schizophrenia, dementia presented to ED secondary MS changes, hypoxia, and cough. Pt is still very lethargic. unsure of baseline. Pt was dx with pneumonia and admitted to ICU. Allergies and Home Medications Allergies Coded Allergies: No Known Drug Allergies (Unverified , 10/06/18) Home Medications Acetaminophen 325 Mg Tablet, 650 MG PO Q4H PRN for PAIN-MILD (1-4) OR TEMPATURE, (Reported) Albuterol Sulfate 1 Puff Puff, 2 PUFF INH Q4H, (Reported) 1 PUFF = 90 MCG Benztropine Mesylate 2 Mg Tablet, 2 MG PO TID, (Reported) Bisacodyl 5 Mg Tablet.dr, 10 MG PO PRN PRN for CONSTIPATION-1ST LINE, (Reported) Bisacodyl 10 Mg Supp.rect, 10 MG RC PRN, (Reported) Cyanocobalamin (Vitamin B-12) 1,000 Mcg Tablet, 1,000 MCG PO DAILY, (Reported) Divalproex Sodium 125 Mg Cap, 375 MG PO TID, (Reported) Docusate Sodium 100 Mg Capsule, 100 MG PO BID, (Reported) Folic Acid 0.8 Mg Tablet, 1 MG PO DAILY, (Reported) Haloperidol Decanoate 50 Mg/1 Ml Ampul, 37.5 MG IM UD, (Reported) Hydroxyzine HCl 25 Mg Tablet, 25 MG PO TID, (Reported) Levetiracetam 1,000 Mg Tablet, 1,000 MG PO BID, (Reported) Loratadine 10 Mg Tablet, 10 MG PO DAILY, (Reported) Losartan Potassium 25 Mg Tablet, 25 MG PO DAILY, (Reported) Magnesium Hydroxide 400 Mg/5 Ml Oral.susp, 30 ML PO PRN PRN for CONSTIPATION-2ND LINE, (Reported) Melatonin 5 Mg Tablet, 10 MG PO PRN, (Reported) Memantine HCl 28 Mg Cap.spr.24, 28 MG PO DAILY, (Reported) Multivitamin 1 Each Tablet, 1 EACH PO DAILY, (Reported) Polyethylene Glycol 3350 17 Gm Powd.pack, 17 GM PO DAILY, (Reported) Sennosides 8.6 Mg Tablet, 17.2 MG PO DAILY, (Reported) Sertraline HCl 50 Mg Tablet, 75 MG PO DAILY, (Reported) Tramadol HCl 50 Mg Tablet, 50 MG PO BID PRN for PAIN-MILD (1-4), (Reported) Trazodone HCl 50 Mg Tablet, 50 MG PO HS, (Reported) Triamcinolone Acetonide 430 Gm Oint...g., 430 GM TP BID, (Reported) Past Apfmncl-Qsfkwz-Yvdnfk Hx Patient Social History Alcohol Use: Denies Use Recreational Drug Use: No Smoking Status: Never a Smoker 2nd Hand Smoke Exposure: No Recent Foreign Travel: No Contact w/Someone Who Travel: No Recent Infectious Disease Expo: No Physical Abuse: No Sexual Abuse: No Mistreated: No Fear: No Past Medical History Respiratory: No Cardiac: Yes Hypertension Neurological: Yes Dementia, Seizure Disorder, Traumatic Brain Injury Genitourinary: Yes (RETENTION OF URINE) Prostate Problems Gastrointestinal: Yes (HEP B, HEP C) Chronic Constipation, Hepatitis Musculoskeletal: No Endocrine: No HEENT: Yes Loss of Vision: Right Cancer: No Psychosocial: Yes Schizophrenia, Depression Integumentary: No Blood Disorders: Yes (HEP C+ HEP B) Sepsis Event Evaluation Height, Weight, BMI Height: 5'8.00" Weight: 150lbs. oz. 68.486849wq; 21.00 BMI Method:Estimated Exam Exam Vital Signs Date Time Temp Pulse Resp B/P (MAP) Pulse Ox O2 Delivery O2 Flow Rate FiO2 09/17/19 05:00 36.9 51 16 109/70 (83) 100 Nasal Cannula 5.00 09/17/19 04:00 Nasal Cannula 5.00 09/17/19 04:00 36.9 09/17/19 02:16 Nasal Cannula 09/17/19 02:00 59 17 122/86 (98) 99 Nasal Cannula 5.00 09/17/19 01:00 56 17 111/62 (78) 100 Nasal Cannula 5.00 09/17/19 01:00 55 09/17/19 00:00 Nasal Cannula 5.00 09/17/19 00:00 60 17 116/64 (81) 100 Nasal Cannula 5.00 09/16/19 23:34 36.5 09/16/19 23:00 59 20 112/78 (89) 99 Nasal Cannula 5.00 09/16/19 22:00 71 16 120/73 (89) 90 Nasal Cannula 5.00 09/16/19 21:56 95 Nasal Cannula 5.00 09/16/19 21:00 83 20 112/67 (82) 93 Nasal Cannula 5.00 09/16/19 20:00 Nasal Cannula 5.00 09/16/19 20:00 81 19 130/98 (109) 90 Nasal Cannula 5.00 09/16/19 20:00 36.6 09/16/19 19:00 77 09/16/19 19:00 77 14 114/87 (96) 99 Nasal Cannula 5.00 09/16/19 18:27 91 Nasal Cannula 5.00 09/16/19 18:00 103 17 113/79 (90) 91 Nasal Cannula 5.00 09/16/19 17:00 77 26 175/119 (137) 94 Nasal Cannula 5.00 09/16/19 16:00 Nasal Cannula 5.00 09/16/19 16:00 70 30 108/95 (99) 97 Nasal Cannula 5.00 09/16/19 14:26 95 Nasal Cannula 5.00 09/16/19 14:00 Nasal Cannula 6.00 09/16/19 13:00 72 09/16/19 12:00 74 16 118/99 (105) 83 Nasal Cannula 5.00 09/16/19 11:53 72 09/16/19 11:25 36.8 74 20 142/90 94 Nasal Cannula 4.00 09/16/19 10:55 36.8 74 18 139/86 (103) 94 Nasal Cannula 5.00 09/16/19 09:45 36.8 77 20 139/86 (103) 92 Nasal Cannula 5.00 09/16/19 09:30 36.8 79 16 144/98 (113) 95 Nasal Cannula 5.00 09/16/19 09:15 36.8 76 18 156/88 (110) 93 Nasal Cannula 2.00 09/16/19 09:00 36.8 77 18 146/105 (119) 92 Nasal Cannula 2.00 09/16/19 08:35 36.9 68 18 137/85 (102) 100 Nasal Cannula 5.00 I & O 09/17/19 07:00 Intake Total 1835 ml Output Total 400 ml Balance 1435 ml Height & Weight Height: 5'8.00" Weight: 150lbs. oz. 68.071781jf; 21.00 BMI Method:Estimated General Appearance: Chronically ill, Thin, Other (laying in bed on side, groans occasionallyl) Respiratory: No Accessory Muscle Use, Decreased Breath Sounds; No Wheezing Cardiovascular: Regular Rate, Rhythm, No Murmur Capillary Refill: Less Than 3 Seconds Gastrointestinal: non tender, no organomegaly, abnormal bowel sounds (Quiescent), other (firm, nondistended abdominal muscles) Extremity: No Calf Tenderness, No Pedal Edema Neurologic/Psychiatric: Other (alert but does not answer any questions) Results Lab Laboratory Tests 09/16/19 08:54 09/17/19 02:20 Assessment/Plan Assessment/Plan RLL pneumonia -R/o COVID -Vanco, cefepime -Influenza is negative -Miranda cultures pending -Currently NC at 5 liters -Repeat ABG Bradycardia -Monitor PAFIB -Cardizem was never started secondary to conversion to bradycardia SHERYL BARR DO Sep 17, 2019 06:03
[2019-09-17] MEDS ORDERED: ENOXAPARIN 40 MG/0.4 ML (LOVENOX) SYR SC SCH ×2 (06:15→09:00)
--- NOTE | 2019-09-17 08:12 | Progress Note ---
Subjective Subjective Date Seen by Provider: Sep 17, 2019 Time Seen by Provider: 08:00 PT IS NOT VERBAL WITH ME THIS MORNING, DOES NOT RESPOND TO QUESTIONS. STAFF REPORTS NO SPECIFIC CONCERNS OVERNIGHT. Review of Systems ROS Unable to Obtain: altered mental status Neurological: Confusion All Other Systems Reviewed All Other Systems Reviewed: Yes Objective Exam Vital Signs Vital Signs - First Documented 09/16/19 08:35 Temp 36.9 Pulse 68 Resp 18 B/P (MAP) 137/85 (102) Pulse Ox 100 O2 Delivery Nasal Cannula O2 Flow Rate 5.00 Capillary Refill : Less Than 3 Seconds General Appearance: Chronically ill, Thin, Other (laying in bed on side, groans occasionallyl) Eyes: Bilateral Eye Normal Inspection, Bilateral Eye PERRL, Bilateral Eye EOMI Respiratory: No Accessory Muscle Use, Decreased Breath Sounds; No Wheezing Cardiovascular: Regular Rate, Rhythm, No Murmur Gastrointestinal: Normal Bowel Sounds, Non Tender, Soft; No Distended Extremity: No Calf Tenderness, No Pedal Edema Neurologic/Psychiatric: Other (GROGGY, DID NOT ANSWER QUESTIONS) Results Lab Laboratory Tests 09/16/19 08:42: Blood Gas Puncture Site LR, Blood Gas Patient Temperature 36.9, Arterial Blood pH 7.42, Arterial Blood Partial Pressure CO2 48H, Arterial Blood Partial Pressure O2 34*L, Arterial Blood HCO3 30H, Arterial Blood Total CO2 31.4H, Arterial Blood Oxygen Saturation 46L, Arterial Blood Base Excess 5.7H, Hector Test P, Blood Gas Ventilator Setting NO, Blood Gas Inspired Oxygen 5L 09/16/19 08:54: White Blood Count 5.6, Red Blood Count 3.61L, Hemoglobin 12.1L, Hematocrit 37L, Mean Corpuscular Volume 101H, Mean Corpuscular Hemoglobin 34, Mean Corpuscular Hemoglobin Concent 33, Red Cell Distribution Width 13.1, Platelet Count 114L, Mean Platelet Volume 10.5H, Neutrophils (%) (Auto) 64, Lymphocytes (%) (Auto) 15, Monocytes (%) (Auto) 22H, Eosinophils (%) (Auto) 0, Basophils (%) (Auto) 0, Neutrophils # (Auto) 3.6, Lymphocytes # (Auto) 0.8L, Monocytes # (Auto) 1.2H, Eosinophils # (Auto) 0.0, Basophils # (Auto) 0.0, Neutrophils % (Manual) 63, Lymphocytes % (Manual) 19, Monocytes % (Manual) 13, Band Neutrophils 5, Blood Morphology Comment NORMAL, Prothrombin Time 16.1H, INR Comment 1.2, Activated Partial Thromboplast Time 32, D-Dimer 4.46H, Sodium Level 142, Potassium Level 4.0, Chloride Level 105, Carbon Dioxide Level 25, Anion Gap 12, Blood Urea Nitrogen 22H, Creatinine 0.74, Estimat Glomerular Filtration Rate > 60, BUN/Creatinine Ratio 30, Glucose Level 96, Glucometer 95, Lactic Acid Level 2.07*H, Calcium Level 8.9, Corrected Calcium 9.5, Total Bilirubin 0.8, Aspartate Amino Transf (AST/SGOT) 25, Alanine Aminotransferase (ALT/SGPT) 26, Alkaline Phosphatase 53, Lactate Dehydrogenase 218, Troponin I < 0.028, C-Reactive Protein High Sensitivity 17.25H, Total Protein 6.9, Albumin 3.3, Procalcitonin 0.31H 09/16/19 09:00: Urine Color DARK YELLOW, Urine Clarity CLEAR, Urine pH 7.0, Urine Specific Aynor 1.010L, Urine Protein 1+H, Urine Glucose (UA) TRACEH, Urine Ketones NEGATIVE, Urine Nitrite NEGATIVE, Urine Bilirubin NEGATIVE, Urine Urobilinogen 4.0, Urine Leukocyte Esterase NEGATIVE, Urine RBC (Auto) NEGATIVE, Urine RBC N ONE, Urine WBC 2-5, Urine Squamous Epithelial Cells 0-2, Urine Crystals PRESENTH , Urine Amorphous Sediment FEW SHAHEEN URATESH, Urine Bacteria TRACE, Urine Casts NONE, Urine Mucus MODERATEH, Urine Culture Indicated CULTURE PENDING 09/16/19 09:07: 09/16/19 09:58: Blood Gas Puncture Site RR, Blood Gas Patient Temperature 36.9, Arterial Blood pH 7.44H, Arterial Blood Partial Pressure CO2 40, Arterial Blood Partial Pressure O2 67L, Arterial Blood HCO3 27, Arterial Blood Total CO2 28.0, Arterial Blood Oxygen Saturation 94, Arterial Blood Base Excess 2.8H, Hector Test P, Blood Gas Ventilator Setting NO, Blood Gas Inspired Oxygen 4L 09/16/19 12:30: Lactic Acid Level 0.99 09/16/19 16:33: Blood Gas Puncture Site R RAD, Blood Gas Patient Temperature 37.4, Arterial Blood pH 7.46H, Arterial Blood Partial Pressure CO2 36, Arterial Blood Partial Pressure O2 65L, Arterial Blood HCO3 25, Arterial Blood Total CO2 26.5, Arterial Blood Oxygen Saturation 93L, Arterial Blood Base Excess 2.0, Hector Test YES-POS, Blood Gas Ventilator Setting NO, Blood Gas Inspired Oxygen 5L 09/17/19 02:20: White Blood Count 5.9, Red Blood Count 3.38L, Hemoglobin 11.4L, Hematocrit 34L, Mean Corpuscular Volume 100H, Mean Corpuscular Hemoglobin 34, Mean Corpuscular Hemoglobin Concent 34, Red Cell Distribution Width 13.0, Platelet Count 123L, Mean Platelet Volume 10.3, Neutrophils (%) (Auto) 73, Lymphocytes (%) (Auto) 11L , Monocytes (%) (Auto) 16H, Eosinophils (%) (Auto) 0, Basophils (%) (Auto) 0, Neutrophils # (Auto) 4.3, Lymphocytes # (Auto) 0.7L, Monocytes # (Auto) 0.9, Eosinophils # (Auto) 0.0, Basophils # (Auto) 0.0, Sodium Level 140, Potassium Level 4.2, Chloride Level 108H, Carbon Dioxide Level 21, Anion Gap 11, Blood Urea Nitrogen 20H, Creatinine 0.59L, Estimat Glomerular Filtration Rate > 60, BUN/Creatinine Ratio 34, Glucose Level 97, Calcium Level 7.9L, Phosphorus Level 3.9, Magnesium Level 2.0 09/17/19 05:36: Blood Gas Puncture Site RIGHT RADIAL, Blood Gas Patient Temperature 36.0, Arterial Blood pH 7.47H, Arterial Blood Partial Pressure CO2 34L, Arterial Blood Partial Pressure O2 101H, Arterial Blood HCO3 25, Arterial Blood Total CO2 26.1, Arterial Blood Oxygen Saturation 99, Arterial Blood Base Excess 1.5, Hector Test POSITIVE, Blood Gas Ventilator Setting NO, Blood Gas Inspired Oxygen 5 Microbiology 09/16/19 Influenza Types A,B Antigen (DILAN) - Final, Complete Assessment/Plan Assessment/Plan Admission Dx SEVERE SEPSIS RIGHT LOWER LOBE PNEUMONIA RESPIRATORY FAILURE HYPOXIA SCHIZOPHRENIA DEMENTIA HYPOTENSION LACTIC ACIDOSIS ELEVATED D DIMER ANEMIA AORTIC ANEURYSM CHRONIC COMPRESSION FRACTURES HX OF HEPATITIS B AND C Admission Status: Inpatient Order (span 2 midnights) Assessment and Plan SEVERE SEPSIS RIGHT LOWER LOBE PNEUMONIA RESPIRATORY FAILURE HYPOXIA SCHIZOPHRENIA DEMENTIA HYPOTENSION LACTIC ACIDOSIS ELEVATED D DIMER ANEMIA AORTIC ANEURYSM CHRONIC COMPRESSION FRACTURES HX OF HEPATITIS B AND C SEVERE SEPSIS DUE TO RIGHT LOWER LOBE PNEUMONIA WITH RESPIRATORY FAILURE AND HYP OXIA - IV ANTIBIOTICS - WAITING ON COVID-19 TESTING - MONITOR SYMPTOMS - REPEAT CXR - DR. BARR CONSULTING - CONTINUE WITH SUPPORTIVE CARE SCHIZOPHRENIA - RESUMED HOME REGIMEN DEMENTIA - RESTARTED NAMENDA - SUPPORTIVE CARE HYPOTENSION - IMPROVED - MONITOR PRESSURES LACTIC ACIDOSIS - RESOLVED ELEVATED D DIMER ANEMIA - STABLE CHRONIC CONDITIONS NOT NEEDING ADDRESSED DURING HOSPITALIZATION FOLLOWS: AORTIC ANEURYSM CHRONIC COMPRESSION FRACTURES HX OF HEPATITIS B AND C Clinical Quality Measures DVT/VTE Risk/Contraindication: Risk Factor Score Per Nursin RFS Level Per Nursing on Admit: 3=High KYLE WILSON MD Sep 17, 2019 08:12
[2019-09-17] MEDS ORDERED: NON-FORMULARY MEDICATION 1 EA EA (Folic Acid 1 MG) PO SCH (09:00)
[2019-09-17] MEDS: LEVETIRACETAM 1,000 MG (KEPPRA) TABLET PO SCH ×2 (09:33→21:02)
[2019-09-17] MEDS: polyethylene glycoL POWDER 17 GM (MIRALAX) PACK PO SCH (09:33)
[2019-09-17] MEDS: SENNOSIDES 8.6 MG (SENOKOT) TAB PO SCH (09:34)
[2019-09-17] MEDS: FOLIC ACID 1 MG TAB PO SCH (10:20)
[2019-09-17] MEDS: BENZTROPINE MESYLATE 1 MG (COGENTIN) TAB PO SCH ×3 (10:21→21:02)
[2019-09-17] MEDS: DIVALPROX SPRINKLE 125 MG (DEPAKOTE) CAP PO SCH ×3 (10:21→21:02)
[2019-09-17] MEDS: LOSARTAN 25 MG (COZAAR) TAB PO SCH (10:22)
[2019-09-17] MEDS: SERTRALINE 50 MG (ZOLOFT) TABLET PO SCH (10:22)
[2019-09-17] MEDS: hydrOXYzine (VISTARIL/ATARAX) 25 MG capsule/tablet PO SCH ×3 (10:23→21:03)
[2019-09-17] MEDS: MEMANTINE 10 MG (NAMENDA) TABLET PO SCH ×2 (10:23→21:02)
[2019-09-17] MEDS: LORATADINE (CLARITIN) 10 MG TAB PO SCH (10:23)
[2019-09-17] MEDS: LEVETIRACETAM 1,000 MG/NS 100 ML IVPB IV SCH ×4 (10:24→21:02)
[2019-09-17] MEDS: ENOXAPARIN 30 MG/0.3 ML (LOVENOX) SYR SC SCH (10:25)
--- NOTE | 2019-09-17 11:20 | NUR ---
Pastoral care visit.
[2019-09-17] MEDS: VANCOMYCIN 1 GM/NS 250 ML IVPB IV SCH ×4 (11:42→21:26)
[2019-09-17] MEDS ORDERED: SERT25TA5 PO (12:14)
--- NOTE | 2019-09-17 12:18 | NUR ---
ENTERED THE MED REC USING THE ORDER SUMMARY REPORT FROM [facility] (IT WAS ENTERED OVER THE WEEKEND AND MINIMAL CHANGES WERE MADE)
[2019-09-17] MEDS: traZODone 50 MG (DESYREL) TAB PO SCH (21:26)
[2019-09-18] VITALS (13 sets, daily range): BP systolic 68–145; BP diastolic 66–103
[2019-09-18] MEDS: ALBUTEROL/IPRATROP (COMBIVENT RESPIMAT) 4 GM INHALER IH SCH ×6 (02:02→22:05)
[2019-09-18 03:41] LABS: BASOPHILS % (AUTO) 0 % (0-10); EOSINOPHILS % (AUTO) 0 % (0-10); HEMATOCRIT 35 % (40-54); HEMOGLOBIN 11.5 G/DL (13.3-17.7); LYMPHOCYTES # (AUTO) 1.3 X 10^3 (1.0-4.0); LYMPHOCYTES % (AUTO) 13 % (12-44); MEAN CORPUSCULAR HEMOGLOBIN 34 PG (25-34); MEAN CORPUSCULAR HGB CONC 33 G/DL (32-36); MEAN CORPUSCULAR VOLUME 102 FL (80-99); MEAN PLATELET VOLUME 9.5 FL (7.4-10.4); MONOCYTES % (AUTO) 9 % (0-12); NEUTROPHILS # (AUTO) 7.8 X 10^3 (1.8-7.8); NEUTROPHILS % (AUTO) 78 % (42-75); PLATELET COUNT 136 10^3/uL (130-400); RED CELL DISTRIBUTION WIDTH 12.8 % (10.0-14.5); WHITE BLOOD COUNT 10.1 10^3/uL (4.3-11.0)
[2019-09-18 03:49] LABS: CHLORIDE 108 MMOL/L (98-107); POTASSIUM 3.7 MMOL/L (3.6-5.0); SODIUM 139 MMOL/L (135-145)
[2019-09-18 03:50] LABS: CALCIUM 7.9 MG/DL (8.5-10.1)
[2019-09-18 03:51] LABS: GLUCOSE 107 MG/DL (70-105)
[2019-09-18 03:52] LABS: CARBON DIOXIDE 23 MMOL/L (21-32)
[2019-09-18 03:54] LABS: PHOSPHORUS 2.9 MG/DL (2.3-4.7)
[2019-09-18 03:55] LABS: CREATININE SERUM 0.64 MG/DL (0.60-1.30); GFR ESTIMATED > 60
[2019-09-18 03:56] LABS: BUN/CREATININE RATIO 28
[2019-09-18 03:57] LABS: MAGNESIUM 2.1 MG/DL (1.6-2.4)
[2019-09-18] MEDS: MAGNESIUM 1 GM/100 ML IVPB 100 ML IV SCH (04:09)
[2019-09-18] MEDS: POTASSIUM CL 10MEQ/50ML IVPB 50 ML IV SCH (04:09)
[2019-09-18] MEDS: KCL 20 MEQ TAB (K-DUR) PO SCH (04:10)
[2019-09-18] MEDS: CEFEPIME 1,000 MG/SWFI 10 ML IV PUSH IV SCH ×8 (04:27→21:37)
[2019-09-18] MEDS: 1/2 NS IV SOLUTION 1,000 ML IV SCH ×2 (04:27→16:54)
--- NOTE | 2019-09-18 04:51 | Pulmonary Progress Note ---
Sepsis Event Evaluation Height, Weight, BMI Height: 5'8.00" Weight: 150lbs. oz. 68.278317yy; 21.00 BMI Method:Estimated Focused Exam Lactate Level 09/16/19 08:54: Lactic Acid Level 2.07*H 09/16/19 12:30: Lactic Acid Level 0.99 Exam Exam Vital Signs Date Time Temp Pulse Resp B/P (MAP) Pulse Ox O2 Delivery O2 Flow Rate FiO2 09/18/19 04:00 36.6 09/18/19 04:00 56 26 121/72 (88) 94 Nasal Cannula 5.00 09/18/19 03:17 61 12 143/103 (116) 98 Nasal Cannula 5.00 09/18/19 02:02 94 Room Air 09/18/19 02:00 56 14 99/71 (80) 93 Room Air 09/18/19 01:00 52 09/18/19 01:00 52 16 129/72 (91) 97 Room Air 09/18/19 00:00 37.0 09/18/19 00:00 55 8 128/69 (88) 97 Room Air 09/17/19 23:00 58 11 107/60 (76) 96 Room Air 09/17/19 22:28 98 Room Air 09/17/19 22:00 65 14 95/58 (70) 96 Room Air 09/17/19 21:00 68 9 99/77 (84) 93 Room Air 09/17/19 20:15 78 11 111/71 (84) 95 Room Air 09/17/19 20:00 36.9 09/17/19 20:00 Room Air 09/17/19 19:07 36.9 09/17/19 19:03 94 Room Air 09/17/19 19:00 97 09/17/19 19:00 97 17 121/93 (102) 94 Room Air 09/17/19 18:38 38.9 09/17/19 18:00 81 15 86/72 (77) 94 Nasal Cannula 5.00 09/17/19 17:00 75 15 119/88 (98) 93 Nasal Cannula 5.00 09/17/19 16:00 79 16 98/78 (85) 92 Nasal Cannula 5.00 09/17/19 16:00 Room Air 09/17/19 15:00 84 14 109/75 (86) Nasal Cannula 5.00 09/17/19 14:46 86 Room Air 2.00 09/17/19 14:00 69 15 128/82 (97) 97 Nasal Cannula 5.00 09/17/19 13:00 61 09/17/19 13:00 59 14 119/76 (90) 96 Nasal Cannula 5.00 09/17/19 12:00 58 19 116/72 (87) 96 Nasal Cannula 5.00 09/17/19 12:00 Nasal Cannula 1.00 09/17/19 11:18 36.4 09/17/19 11:13 100 Nasal Cannula 2.00 09/17/19 11:00 58 15 99/70 (80) 100 Nasal Cannula 5.00 09/17/19 10:00 52 15 108/62 (77) 100 Nasal Cannula 5.00 09/17/19 09:00 53 10 104/67 (79) 100 Nasal Cannula 5.00 09/17/19 08:00 53 16 106/68 (81) 100 Nasal Cannula 5.00 09/17/19 08:00 Nasal Cannula 1.00 09/17/19 07:39 100 Nasal Cannula 3.00 09/17/19 07:00 56 19 133/71 (91) 100 Nasal Cannula 5.00 09/17/19 06:42 52 09/17/19 06:00 52 15 95/65 (75) 100 Nasal Cannula 5.00 09/17/19 05:00 36.9 51 16 109/70 (83) 100 Nasal Cannula 5.00 I & O 09/18/19 07:00 Intake Total 100 ml Output Total 475 ml Balance -375 ml Height & Weight Height: 5'8.00" Weight: 150lbs. oz. 68.592967rk; 21.00 BMI Method:Estimated General Appearance: Chronically ill, Thin, Other (laying in bed on side, groans occasionallyl) Respiratory: No Accessory Muscle Use, Decreased Breath Sounds; No Wheezing Cardiovascular: Regular Rate, Rhythm, No Murmur Capillary Refill: Less Than 3 Seconds Gastrointestinal: non tender, no organomegaly, abnormal bowel sounds (Quiescent), other (firm, nondistended abdominal muscles) Extremity: No Calf Tenderness, No Pedal Edema Neurologic/Psychiatric: Other (alert but does not answer any questions) Results Lab Laboratory Tests 09/16/19 08:54 09/17/19 02:20 09/18/19 03:16 Assessment/Plan Assessment/Plan RLL pneumonia -COVID is negative -Vanco, cefepime -Influenza is negative -Miranda cultures pending -Currently on RA Bradycardia -Monitor mild hypotension with decreased UO -Give liter bolus over 2 hrs of LR. PAFIB -Cardizem was never started secondary to conversion to bradycardia SHERYL BARR DO Sep 18, 2019 04:51
[2019-09-18] MEDS ORDERED: LACTATED RINGERS 1,000 ML IV SCH (05:00)
--- NOTE | 2019-09-18 06:34 | Diagnostic Imaging Report ---
INDICATION: Follow-up. Hypoxia. Sepsis. COMPARISON: 09/16/2019 FINDINGS: Single frontal radiograph view of the chest was obtained and demonstrates overall improved aeration. There is subtle residual patchy infiltrate opacity within the right lung base. Small right effusion is also suspected. Left lung is relatively clear. There is no large effusion on the left. No pneumothorax seen on either side. Cardiac silhouette and pulmonary vasculature are within normal limits. Osseous structures show no gross acute abnormalities. IMPRESSION: 1. Overall improved aeration in the right base, but with residual right basilar infiltrate. 2. Small right effusion is also suspected. Dictated by: Dictated on workstation # [id number]
[2019-09-18] MEDS: LEVETIRACETAM 1,000 MG/NS 100 ML IVPB IV SCH ×2 (08:08)
[2019-09-18] MEDS: ENOXAPARIN 30 MG/0.3 ML (LOVENOX) SYR SC SCH (08:08)
[2019-09-18] MEDS: SERTRALINE 50 MG (ZOLOFT) TABLET PO SCH (08:10)
[2019-09-18] MEDS: SENNOSIDES 8.6 MG (SENOKOT) TAB PO SCH (08:10)
[2019-09-18] MEDS: FOLIC ACID 1 MG TAB PO SCH (08:11)
[2019-09-18] MEDS: BENZTROPINE MESYLATE 1 MG (COGENTIN) TAB PO SCH ×3 (08:11→20:37)
[2019-09-18] MEDS: hydrOXYzine (VISTARIL/ATARAX) 25 MG capsule/tablet PO SCH ×3 (08:11→20:37)
[2019-09-18] MEDS: DIVALPROX SPRINKLE 125 MG (DEPAKOTE) CAP PO SCH ×3 (08:11→20:38)
[2019-09-18] MEDS: LORATADINE (CLARITIN) 10 MG TAB PO SCH (08:11)
[2019-09-18] MEDS: MEMANTINE 10 MG (NAMENDA) TABLET PO SCH ×2 (08:11→20:39)
[2019-09-18] MEDS: LOSARTAN 25 MG (COZAAR) TAB PO SCH (08:12)
[2019-09-18] MEDS: LEVETIRACETAM 1,000 MG (KEPPRA) TABLET PO SCH ×2 (08:14→20:37)
[2019-09-18] MEDS: polyethylene glycoL POWDER 17 GM (MIRALAX) PACK PO SCH (08:14)
--- NOTE | 2019-09-18 08:20 | Progress Note ---
Subjective Subjective Date Seen by Provider: Sep 18, 2019 Time Seen by Provider: 08:00 Review of Systems ROS Unable to Obtain: altered mental status All Other Systems Reviewed All Other Systems Reviewed: Yes Objective Exam Vital Signs Vital Signs - First Documented 09/16/19 08:35 Temp 36.9 Pulse 68 Resp 18 B/P (MAP) 137/85 (102) Pulse Ox 100 O2 Delivery Nasal Cannula O2 Flow Rate 5.00 Capillary Refill : Less Than 3 Seconds General Appearance: Chronically ill, Thin, Other (laying in bed on side, groans occasionallyl) Eyes: Bilateral Eye Normal Inspection, Bilateral Eye PERRL, Bilateral Eye EOMI Respiratory: No Accessory Muscle Use, Decreased Breath Sounds; No Wheezing Cardiovascular: Regular Rate, Rhythm, No Murmur Gastrointestinal: Normal Bowel Sounds, Non Tender, Soft; No Distended Extremity: No Calf Tenderness, No Pedal Edema Neurologic/Psychiatric: Other (alert but does not answer any questions) Results Lab Laboratory Tests 09/18/19 03:16: White Blood Count 10.1, Red Blood Count 3.40L, Hemoglobin 11.5L, Hematocrit 35L, Mean Corpuscular Volume 102H, Mean Corpuscular Hemoglobin 34, Mean Corpuscular Hemoglobin Concent 33, Red Cell Distribution Width 12.8, Platelet Count 136, Mean Platelet Volume 9.5, Neutrophils (%) (Auto) 78H, Lymphocytes (%) (Auto) 13, Monocytes (%) (Auto) 9, Eosinophils (%) (Auto) 0, Basophils (%) (Auto) 0, Neutrophils # (Auto) 7.8, Lymphocytes # (Auto) 1.3, Monocytes # (Auto) 1.0, Eosinophils # (Auto) 0.0, Basophils # (Auto) 0.0, Sodium Level 139, Potassium Level 3.7, Chloride Level 108H, Carbon Dioxide Level 23, Anion Gap 8, Blood Urea Nitrogen 18, Creatinine 0.64, Estimat Glomerular Filtration Rate > 60, BUN/Creatinine Ratio 28, Glucose Level 107H, Calcium Level 7.9L, Phosphorus Level 2.9, Magnesium Level 2.1 Microbiology 09/16/19 Blood Culture - Preliminary, Resulted No growth 09/16/19 Influenza Types A,B Antigen (DILAN) - Final, Complete 09/16/19 Urine Culture - Final, Complete NO GROWTH Assessment/Plan Assessment/Plan Assessment and Plan SEVERE SEPSIS RIGHT LOWER LOBE PNEUMONIA RESPIRATORY FAILURE HYPOXIA SCHIZOPHRENIA DEMENTIA HYPOTENSION LACTIC ACIDOSIS ELEVATED D DIMER ANEMIA AORTIC ANEURYSM CHRONIC COMPRESSION FRACTURES HX OF HEPATITIS B AND C SEVERE SEPSIS DUE TO RIGHT LOWER LOBE PNEUMONIA WITH RESPIRATORY FAILURE AND HYPOXIA - IV ANTIBIOTICS - WAITING ON COVID-19 TESTING - MONITOR SYMPTOMS - REPEAT CXR - DR. BARR CONSULTING - CONTINUE WITH SUPPORTIVE CARE SCHIZOPHRENIA - RESUMED HOME REGIMEN DEMENTIA - RESTARTED NAMENDA - SUPPORTIVE CARE HYPOTENSION - IMPROVED - MONITOR PRESSURES LACTIC ACIDOSIS - RESOLVED ELEVATED D DIMER ANEMIA - STABLE CHRONIC CONDITIONS NOT NEEDING ADDRESSED DURING HOSPITALIZATION FOLLOWS: AORTIC ANEURYSM CHRONIC COMPRESSION FRACTURES HX OF HEPATITIS B AND C TRANSFER TO 4TH FLOOR TODAY Clinical Quality Measures DVT/VTE Risk/Contraindication: Risk Factor Score Per Nursin RFS Level Per Nursing on Admit: 3=High KYLE WILSON MD Sep 18, 2019 08:20
[2019-09-18] MEDS: DOCUSATE SODIUM 100 MG (COLACE) CAP PO SCH ×2 (09:24→20:37)
--- NOTE | 2019-09-18 10:00 | NUR ---
PT TRANSPORTED TO ROOM 416 WITH NO DIFFICULTIES. REPORT GIVEN TO YONATAN PYLE.
--- NOTE | 2019-09-18 10:15 | NUR ---
Patient arrived to room 416 via bed from ICU. Report recieved from YONATAN Rios and I agree with her assessment. Call light within reach and all needs met at this time.
--- NOTE | 2019-09-18 15:48 | NUR ---
CM/SS attempted to visit with the patient. Plan: The patient will return to [facility]. The patient had a sitter with him at bedside. The patient did not wake up or speak to this ss even with several attempts made. Will continue to follow.
[2019-09-18] MEDS: MELATONIN 10 MG TABLET PO PRN (20:37)
[2019-09-18] MEDS: traZODone 50 MG (DESYREL) TAB PO SCH (20:38)
[2019-09-19] VITALS: BP 125/78
[2019-09-19] MEDS: ALBUTEROL/IPRATROP (COMBIVENT RESPIMAT) 4 GM INHALER IH SCH ×3 (01:39→10:36)
[2019-09-19] MEDS: 1/2 NS IV SOLUTION 1,000 ML IV SCH ×2 (01:55→06:24)
[2019-09-19 04:00] VITALS: BP 114/72
[2019-09-19] MEDS: CEFEPIME 1,000 MG/SWFI 10 ML IV PUSH IV SCH ×2 (04:34)
[2019-09-19 05:40] LABS: BASOPHILS % (AUTO) 0 % (0-10); EOSINOPHILS # (AUTO) 0.1 10^3/uL (0.0-0.3); EOSINOPHILS % (AUTO) 1 % (0-10); HEMATOCRIT 28 % (40-54); HEMOGLOBIN 9.7 G/DL (13.3-17.7); LYMPHOCYTES # (AUTO) 0.9 X 10^3 (1.0-4.0); LYMPHOCYTES % (AUTO) 15 % (12-44); MEAN CORPUSCULAR HEMOGLOBIN 34 PG (25-34); MEAN CORPUSCULAR HGB CONC 34 G/DL (32-36); MEAN CORPUSCULAR VOLUME 98 FL (80-99); MONOCYTES # (AUTO) 0.7 X 10^3 (0.0-1.0); MONOCYTES % (AUTO) 12 % (0-12); NEUTROPHILS # (AUTO) 4.5 X 10^3 (1.8-7.8); NEUTROPHILS % (AUTO) 72 % (42-75); PLATELET COUNT 102 10^3/uL (130-400); RED CELL DISTRIBUTION WIDTH 12.4 % (10.0-14.5); WHITE BLOOD COUNT 6.2 10^3/uL (4.3-11.0)
[2019-09-19 06:04] LABS: CHLORIDE 108 MMOL/L (98-107); POTASSIUM 3.2 MMOL/L (3.6-5.0); SODIUM 137 MMOL/L (135-145)
[2019-09-19 06:05] LABS: CALCIUM 7.2 MG/DL (8.5-10.1); GLUCOSE 101 MG/DL (70-105)
[2019-09-19 06:07] LABS: CARBON DIOXIDE 20 MMOL/L (21-32)
[2019-09-19 06:09] LABS: CREATININE SERUM 0.51 MG/DL (0.60-1.30); GFR ESTIMATED > 60; PHOSPHORUS 2.7 MG/DL (2.3-4.7)
[2019-09-19 06:10] LABS: BUN/CREATININE RATIO 20
[2019-09-19 06:11] LABS: MAGNESIUM 1.9 MG/DL (1.6-2.4)
--- NOTE | 2019-09-19 07:12 | Pulmonary Progress Note ---
Subjective Time Seen by a Provider: 07:10 Subjective/Events-last exam No complications noted. Sepsis Event Evaluation Height, Weight, BMI Height: 5'8.00" Weight: 150lbs. oz. 68.919217lh; 21.00 BMI Method:Estimated Focused Exam Lactate Level 09/16/19 08:54: Lactic Acid Level 2.07*H 09/16/19 12:30: Lactic Acid Level 0.99 Exam Exam Vital Signs Date Time Temp Pulse Resp B/P (MAP) Pulse Ox O2 Delivery O2 Flow Rate FiO2 09/19/19 07:04 92 Room Air 09/19/19 04:00 36.7 50 14 114/72 (86) 95 Room Air 09/19/19 01:39 95 09/19/19 01:00 63 09/19/19 00:00 36.9 56 16 125/78 (94) 95 Room Air 09/18/19 22:06 93 09/18/19 20:57 37.2 09/18/19 20:50 Room Air 09/18/19 19:29 37.9 82 20 145/93 (110) 97 Room Air 09/18/19 19:00 82 09/18/19 18:37 93 09/18/19 15:50 37.4 82 19 119/73 (88) 96 Room Air 09/18/19 14:25 93 09/18/19 13:04 09/18/19 13:00 74 09/18/19 12:00 36.1 83 18 137/84 (101) 96 Room Air 09/18/19 11:08 93 09/18/19 10:06 36.4 65 16 95/66 (76) 95 Room Air 09/18/19 08:33 36.3 09/18/19 08:00 Room Air 09/18/19 08:00 49 15 131/75 (93) 95 Room Air I & O 09/19/19 07:00 Intake Total 2005 ml Output Total 1025 ml Balance 980 ml Height & Weight Height: 5'8.00" Weight: 150lbs. oz. 68.979357xs; 21.00 BMI Method:Estimated General Appearance: Chronically ill, Thin, Other (laying in bed on side, groans occasionallyl) Respiratory: No Accessory Muscle Use, Decreased Breath Sounds; No Wheezing Cardiovascular: Regular Rate, Rhythm, No Murmur Capillary Refill: Less Than 3 Seconds Gastrointestinal: non tender, no organomegaly, abnormal bowel sounds (Quiescent), other (firm, nondistended abdominal muscles) Extremity: No Calf Tenderness, No Pedal Edema Neurologic/Psychiatric: Other (alert but does not answer any questions) Results Lab Laboratory Tests 09/18/19 03:16 09/19/19 05:15 Assessment/Plan Assessment/Plan RLL pneumonia -COVID is negative -Change Abx to PO Omnicef -Influenza is negative -Miranda cultures pending -Currently on RA Bradycardia -Monitor mild hypotension with decreased UO -Give liter bolus over 2 hrs of LR. PAFIB - PT is ok for discharge from pulmonary standpoint. I am going to sign off please call with any questions. SHERYL BARR DO Sep 19, 2019 07:12
[2019-09-19 07:33] VITALS: BP 117/75
[2019-09-19] MEDS ORDERED: CEFD300C3 PO (08:24)
--- NOTE | 2019-09-19 08:25 | Discharge Inst-Simple/Standard ---
Discharge Inst-Standard Reconcile Patient Problems Problems Reviewed?: Yes Discharge Medications New, Converted or Re-Newed RX: Other Patient Instructions/Follow Up Plan of Care/Instructions/FU: [address]LLOW UP WITH DR. VENTURA BY TELEMEDICINE VISIT Activity as Tolerated: Yes Discharge Diet: Other Diet (RESUME PREVIOUS DIET) KYLE WILSON MD Sep 19, 2019 08:25
--- NOTE | 2019-09-19 08:25 | Discharge Summary ---
Diagnosis/Chief Complaint Date of Admission Sep 16, 2019 at 10:40 Date of Discharge Discharge Date: Sep 19, 2019 Discharge Time: 0900 Discharge Summary Discharge Physical Examination Allergies: Coded Allergies: No Known Drug Allergies (Unverified , 10/06/18) Vitals & I&Os Vital Signs Date Time Temp Pulse Resp B/P (MAP) Pulse Ox O2 Delivery O2 Flow Rate FiO2 09/19/19 07:33 36.6 50 18 117/75 (89) 95 Room Air 09/18/19 04:00 Hospital Course Pending Labs Laboratory Tests 09/19/19 05:15: White Blood Count 6.2, Red Blood Count 2.87, Hemoglobin 9.7, Hematocrit 28, Mean Corpuscular Volume 98, Mean Corpuscular Hemoglobin 34, Mean Corpuscular Hemoglobin Concent 34, Red Cell Distribution Width 12.4, Platelet Count 102, Mean Platelet Volume 10.0, Neutrophils (%) (Auto) 72, Lymphocytes (%) (Auto) 15, Monocytes (%) (Auto) 12, Eosinophils (%) (Auto) 1, Basophils (%) (Auto) 0, Neutrophils # (Auto) 4.5, Lymphocytes # (Auto) 0.9, Monocytes # (Auto) 0.7, Eosinophils # (Auto) 0.1, Basophils # (Auto) 0.0, Sodium Level 137, Potassium Level 3.2, Chloride Level 108, Carbon Dioxide Level 20, Anion Gap 9, Blood Urea Nitrogen 10, Creatinine 0.51, Estimat Glomerular Filtration Rate > 60, BUN/Creatinine Ratio 20, Glucose Level 101, Calcium Level 7.2, Phosphorus Level 2.7, Magnesium Level 1.9 09/19/19 07:30: B-Type Natriuretic Peptide 110.4 Discharge Instructions to patient/family Please see electronic discharge instructions given to patient. Discharge Medications Reviewed and agree with Discharge Medication list on patient's Discharge Instruction sheet Clinical Quality Measures DVT/VTE Risk/Contraindication: Risk Factor Score Per Nursin RFS Level Per Nursing on Admit: 3=High KYLE WILSON MD Sep 19, 2019 08:25
[2019-09-19] MEDS ORDERED: CEFDINIR 300 MG (OMNICEF) CAP PO SCH (09:00)
[2019-09-19] MEDS: BENZTROPINE MESYLATE 1 MG (COGENTIN) TAB PO SCH (09:16)
[2019-09-19] MEDS: FOLIC ACID 1 MG TAB PO SCH (09:16)
[2019-09-19] MEDS: LEVETIRACETAM 1,000 MG (KEPPRA) TABLET PO SCH (09:16)
[2019-09-19] MEDS: MEMANTINE 10 MG (NAMENDA) TABLET PO SCH (09:16)
[2019-09-19] MEDS: LOSARTAN 25 MG (COZAAR) TAB PO SCH (09:17)
[2019-09-19] MEDS: ENOXAPARIN 30 MG/0.3 ML (LOVENOX) SYR SC SCH (09:17)
[2019-09-19] MEDS: hydrOXYzine (VISTARIL/ATARAX) 25 MG capsule/tablet PO SCH (09:17)
[2019-09-19] MEDS: LORATADINE (CLARITIN) 10 MG TAB PO SCH (09:17)
[2019-09-19] MEDS: polyethylene glycoL POWDER 17 GM (MIRALAX) PACK PO SCH (09:17)
[2019-09-19] MEDS: SERTRALINE 50 MG (ZOLOFT) TABLET PO SCH (09:17)
[2019-09-19] MEDS: SENNOSIDES 8.6 MG (SENOKOT) TAB PO SCH (09:18)
[2019-09-19] MEDS: DIVALPROX SPRINKLE 125 MG (DEPAKOTE) CAP PO SCH (09:27)
[2019-09-19] MEDS: DOCUSATE SODIUM 100 MG (COLACE) CAP PO SCH (09:28)
--- NOTE | 2019-09-19 11:12 | NUR ---
CM/SS finalized discharge plan. Plan: Patient will return to [facility] skilled nursing. CM/SS contacted [facility] to set up a transportation back to facility. They verbalized they will be able to pick him up at 11:30 a.m. today 09/18. CM/SS informed the patients nurse and he verbalized understanding. CM/SS faxed finalized orders to facility. No other needs at this time.
--- NOTE | 2019-09-19 11:59 | NUR ---
REPORT CALLED TO JOHN AT [facility]
[2019-09-19 12:35] VITALS: BP 117/75
--- NOTE | 2019-09-19 12:35 | NUR ---
INNA JOHNSON discharged to [facility]. PT notified of discharge and report given to JOHN TAM. INNA JOHNSON belongings sent with PT. Skin dry and intact; no breakdown noted Vital signs are stable at time of discharge. Condition is stable at time of discharge. Discharge instructions and copies of H&P, discharge summary, physician's order, lab reports, consultation reports, other dictated reports, diagnostic imaging reports, Advance Directive, eMAR, vital signs, intake and output sent with PT. Patient discharged from [facility] on 09/19/2019 at 1253. INNA JOHNSON left floor via WC, accompanied by STAFF. INNA JOHNSON and family/DPOA notified and verbalize understanding of discharge to [facility].
== END 2019-09-19 12:35 | DRG 871 ==
LOC: EDUNIT# 08:33 → ER 08:41 → ICU 10:40 → 4TH 09-18 10:05
PROVIDERS: ADMIT Family Medicine; ATTEND Family Medicine
DX: A41.9 Sepsis, unspecified organism (principal); R65.20 Severe sepsis without septic shock; J18.9 Pneumonia, unspecified organism; J96.01 Acute respiratory failure with hypoxia; E87.2 Acidosis; F03.91 Unspecified dementia, unspecified severity, with behavioral disturbance; B19.10 Unspecified viral hepatitis B without hepatic coma; B19.20 Unspecified viral hepatitis C without hepatic coma; I48.0 Paroxysmal atrial fibrillation; I10 Essential (primary) hypertension; R00.1 Bradycardia, unspecified; R79.1 Abnormal coagulation profile; G40.909 Epilepsy, unspecified, not intractable, without status epilepticus; F20.9 Schizophrenia, unspecified; F32.9 Major depressive disorder, single episode, unspecified; K59.09 Other constipation; N40.1 Benign prostatic hyperplasia with lower urinary tract symptoms; R33.8 Other retention of urine; Z87.820 Personal history of traumatic brain injury
CPT/HCPCS: 36415; 36600; 51701; 71045; 71275; 80048; 80053; 81000; 82805; 82962; 83605; 83615; 83735; 83880; 84100; 84145; 84484; 85007; 85025; 85027; 85379; 85610; 85730; 86141; 87040; 87088; 87635; 87804; 94640; 94760; 96374; 96375

== ENCOUNTER 2019-09-21 06:48 | Emergency (ER) | payer MEDICAID ==
[~2019-09-21] VITALS: Ht 170 cm; Wt 54.0 kg
[~2019-09-21 06:48] MED LIST: ACET325T49 PO; BENZ2TAB6 PO; BISA10SU8 RC; BISA5TAB8 PO; CEFD300C3 PO; CYAN100088 PO; DIVA125C PO; DOCU100C37 PO; FOLI0.8T PO; HALO50AM2 IM; HYDR-700 PO; LEVE100015 PO; LORA10TA76 PO; LOSA25TA41 PO; MAGN400O7 PO; MELA5TAB14 PO; MEMA28CA PO; MULT-1136 PO; POLY17PO6 PO; RT-ALBUINH INH; SENN-234 PO; SERT25TA5 PO; SERT50TA2 PO; TRIA430O4 TP; TRM50T PO; TRZ50T PO
--- OUTSIDE RECORDS SUMMARY | 2019-09-21 06:54 | XMS REPORT | Continuity of Care Document ---
Author Organization Unknown Address Unknown Phone Unavailable Allergies Active Description Code Type Severity Reaction Onset Reported/Identified Relationship to Patient Clinical Status Yes No Known Allergies NKMA N/A N/A 09/13/2014 Yes No Known Drug Allergies [id number] Drug Allergy Unknown N/A 10/06/2018 Medications Medication [...] Daniel Final Y 92.[address] in halfway as the place of occurrence of the externa 06/17/2016 Bruey,, Caro Reason R56 .9 Unspecified convulsions 07/05/2016 BRIAN HILLIARD MD B19.10 Unspecified viral hepatitis B without hepatic coma 07/05/2016 BRIAN HILLIARD MD B19.20 Unspecified viral hepatitis C without hepatic coma 07/05/2016 BRIAN HILLIARD MD E53.8 Deficiency of other specified B group vitamins 07/05/2016 BRIAN HILLIARD MD E88.09 [facility] disorders of plasma-protein metabolism, NEC 07/05/2016 [...] R45.1 Restlessness and agitation 01/06/2017 F B18.2 Android Ui Developer adonis viral hepatitis C John Spencer S 01/06/2017 F B19.10 Uns pecified viral hepatitis B without hepatic coma John Spencer S 01/06/2017 F F03.91 Uns pecified dementia with behavioral disturbance John Spencer S 01/06/2017 F F20.9 Schi zophrenia, unspecified John Spenecr S 01/06/2017 F F32.9 Samantha r depressive [...] Adarsh,Dave Final Y92.[address] in halfway as the place of occurrence of the externa 08/30/2017 [place] Jacob Final Z79.89 9 Other senior care (current) drug therapy 08/30/2017 Adarsh,Dave Final Z87.82 [...] UNSPECIFIED DEMENTIA WITHOUT BEHAVIORAL 10/09/2018 DIONNE LAGOS DOLLYMAN Ot F20 .9 SCHIZOPHRENIA, UNSPECIFIED 10/09/2018 DIONNE LAGOS DOLLYMAN Ot N32 .0 BLADDER-NECK OBSTRUCTION 10/09/2018 DIONNE LAGOS DOLLYMAN Ot R45 .1 RESTLESSNESS AND AGITATION 10/09/2018 DIONNE LAGOS DOLLYMAN Ot 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 9 SEPSIS, UNSPECIFIED ORGANISM 09/18/2019 NIGEL DIEHL, SHARA Peñaloza Ot B19. 10 UNSPECIFIED VIRAL HEPATITIS B WITHOUT HE 09/18/2019 NIGEL DIEHL, SHARA Peñaloza Ot B19. 20 UNSPECIFIED VIRAL HEPATITIS C WITHOUT HE 09/18/2019 NIGEL DIEHL, SHARA Peñaloza Ot E87. 2 ACIDOSIS 09/18/2019 NIGEL DIEHL, SHARA Peñaloza Ot F03. 91 UNSPECIFIED DEMENTIA WITH BEHAVIORAL DIS 09/18/2019 NIGEL DIEHL, SHARA Peñaloza Ot F20. 9 SCHIZOPHRENIA, UNSPECIFIED 09/18/2019 NIGEL DIEHL, SHARA Peñaloza Ot F32. 9 MAJOR DEPRESSIVE DISORDER, SINGLE EPISOD 09/18/2019 NIGEL DIEHL, SHARA Peñaloza Ot G40.909 EPILEPSY, UNSP, NOT INTRACTABLE, WITHOUT 09/18/2019 NIGEL DIEHL, SHARA Peñaloza Ot I10 ESSENTIAL (PRIMARY) HYPERTENSION 09/18/2019 SHARA MANNING MD Ot I48. 0 PAROXYSMAL ATRIAL FIBRILLATION 09/18/2019 SHARA MANNING MD Ot J18. 9 PNEUMONIA, UNSPECIFIED ORGANISM 09/18/2019 SHARA MANNING MD Ot J96. 01 ACUTE RESPIRATORY FAILURE WITH HYPOXIA 09/18/2019 SHARA MANNING MD Ot K59. 09 OTHER CONSTIPATION 09/18/2019 SHARA MANNING MD Ot N40. 1 BENIGN PROSTATIC HYPERPLASIA WITH LOWER 09/18/2019 SHARA MANNING MD Ot R00. 1 BRADYCARDIA, UNSPECIFIED 09/18/2019 SHARA MANNING MD Ot R33. 8 OTHER RETENTION OF URINE 09/18/2019 SHARA MANNING MD Ot R65. 20 SEVERE SEPSIS WITHOUT SEPTIC SHOCK 09/18/2019 SHARA MANNING MD Ot R79. 1 ABNORMAL COAGULATION PROFILE 09/18/2019 SHARA MANNING MD Ot Z87.820 PERSONAL HISTORY OF TRAUMATIC BRAIN INJU 09/18/2019 SHARA MANNING MD Ot A41. 9 SEPSIS, UNSPECIFIED ORGANISM 09/18/2019 SHARA MANNING MD Ot B19. 10 UNSPECIFIED VIRAL HEPATITIS B WITHOUT HE 09/18/2019 SHARA MANNING MD Ot B19. 20 UNSPECIFIED VIRAL HEPATITIS C WITHOUT HE 09/18/2019 SHARA MANNING MD Ot E87. 2 ACIDOSIS 09/18/2019 SAHRA MANNING MD Ot F03. 91 UNSPECIFIED DEMENTIA WITH BEHAVIORAL DIS 09/18/2019 SHARA MANNING MD Ot F20. 9 SCHIZOPHRENIA, UNSPECIFIED 09/18/2019 SHARA MANNING MD Ot F32. 9 MAJOR DEPRESSIVE DISORDER, SINGLE EPISOD 09/18/2019 SHARA MANNING MD Ot G40.909 EPILEPSY, UNSP, NOT INTRACTABLE, WITHOUT 09/18/2019 SHARA MANNING MD Ot I10 ESSENTIAL (PRIMARY) HYPERTENSION 09/18/2019 SHARA MANNING MD Ot I48. 0 PAROXYSMAL ATRIAL FIBRILLATION 09/18/2019 SHARA MANNING MD Ot J18. 9 PNEUMONIA, UNSPECIFIED ORGANISM 09/18/2019 SHARA MANNING MD Ot J96. 01 ACUTE RESPIRATORY FAILURE WITH HYPOXIA 09/18/2019 SHARA MANNING MD Ot K59. 09 OTHER CONSTIPATION 09/18/2019 SHARA MANNING MD Ot N40. 1 BENIGN PROSTATIC HYPERPLASIA WITH LOWER 09/18/2019 SHARA MANNING MD Ot R00. 1 BRADYCARDIA, UNSPECIFIED 09/18/2019 SHARA MANNING MD Ot R33. 8 OTHER RETENTION OF URINE 09/18/2019 SHARA MANNING MD Ot R65. 20 SEVERE SEPSIS WITHOUT SEPTIC SHOCK 09/18/2019 SHARA MANNING MD Ot R79. 1 ABNORMAL COAGULATION PROFILE 09/18/2019 SHARA MANNING MD Ot Z87.820 PERSONAL HISTORY OF TRAUMATIC BRAIN INJU 09/18/2019 SHARA MANNING MD Ot A41. 9 SEPSIS, UNSPECIFIED ORGANISM 09/18/2019 SHARA MANNING MD Ot B19. 10 UNSPECIFIED VIRAL HEPATITIS B WITHOUT HE 09/18/2019 SHARA MANNING MD Ot B19. 20 UNSPECIFIED VIRAL HEPATITIS C WITHOUT HE 09/18/2019 SHARA MANNING MD Ot E87. 2 ACIDOSIS 09/18/2019 SHARA MANNING MD Ot F03. 91 UNSPECIFIED DEMENTIA WITH BEHAVIORAL DIS 09/18/2019 SHARA MANNING MD Ot F20. 9 SCHIZOPHRENIA, UNSPECIFIED 09/18/2019 SHARA MANNING MD Ot F32. 9 MAJOR DEPRESSIVE DISORDER, SINGLE EPISOD 09/18/2019 SHARA MANNING MD Ot G40.909 EPILEPSY, UNSP, NOT INTRACTABLE, WITHOUT 09/18/2019 SHARA MANNING MD Ot I10 ESSENTIAL (PRIMARY) HYPERTENSION 09/18/2019 SHARA MANNING MD Ot I48. 0 PAROXYSMAL ATRIAL FIBRILLATION 09/18/2019 SHARA MANNING MD Ot J18. 9 PNEUMONIA, UNSPECIFIED ORGANISM 09/18/2019 SHARA MANNING MD Ot J96. 01 ACUTE RESPIRATORY FAILURE WITH HYPOXIA 09/18/2019 SHARA MANNING MD Ot K59. 09 OTHER CONSTIPATION 09/18/2019 SHARA MANNING MD Ot N40. 1 BENIGN PROSTATIC HYPERPLASIA WITH LOWER 09/18/2019 SHARA MANNING MD Ot R00. 1 BRADYCARDIA, UNSPECIFIED 09/18/2019 SHARA MANNING MD Ot R33. 8 OTHER RETENTION OF URINE 09/18/2019 SHARA MANNING MD Ot R65. 20 SEVERE SEPSIS WITHOUT SEPTIC SHOCK 09/18/2019 SHARA MANNING MD Ot R79. 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 9 SEPSIS, UNSPECIFIED ORGANISM 09/19/2019 SHARA MANNING MD Ot B19. 10 UNSPECIFIED VIRAL HEPATITIS B WITHOUT HE 09/19/2019 SHARA MANNING MD Ot B19. 20 UNSPECIFIED VIRAL HEPATITIS C WITHOUT HE 09/19/2019 SHARA MANNING MD Ot E87. 2 ACIDOSIS 09/19/2019 SHARA MANNING MD Ot F03. 91 UNSPECIFIED DEMENTIA WITH BEHAVIORAL DIS 09/19/2019 SHARA MANNING MD Ot F20. 9 SCHIZOPHRENIA, UNSPECIFIED 09/19/2019 SHARA MANNING MD Ot F32. 9 MAJOR DEPRESSIVE DISORDER, SINGLE EPISOD 09/19/2019 SHARA MANNING MD Ot G40.909 EPILEPSY, UNSP, NOT INTRACTABLE, WITHOUT 09/19/2019 SHARA MANNING MD Ot I10 ESSENTIAL (PRIMARY) HYPERTENSION 09/19/2019 SHARA MANNING MD Ot I48. 0 PAROXYSMAL ATRIAL FIBRILLATION 09/19/2019 SHARA MANNING MD Ot J18. 9 PNEUMONIA, UNSPECIFIED ORGANISM 09/19/2019 SHARA MANNING MD Ot J96. 01 ACUTE RESPIRATORY FAILURE WITH HYPOXIA 09/19/2019 SHARA MANNING MD Ot K59. 09 OTHER CONSTIPATION 09/19/2019 SHARA MANNING MD Ot N40. 1 BENIGN PROSTATIC HYPERPLASIA WITH LOWER 09/19/2019 SHARA MANNING MD Ot R00. 1 BRADYCARDIA, UNSPECIFIED 09/19/2019 SHARA MANNING MD Ot R33. 8 OTHER RETENTION OF URINE 09/19/2019 SHARA MANNING MD Ot R65. 20 SEVERE SEPSIS WITHOUT SEPTIC SHOCK 09/19/2019 SHARA MANNING MD Ot R79. 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 BRAIN INJU Procedures Code Description Performed By Per formed On T1023 [place] keeping Screen - Initial John Spencer S 01/06/2017 Results Test Result Range Comprehensive Metabolic [...] NA 5.0-8.0 Protein Negative NA Negative Specific [place] 1.020 NA 1.003-1.030 UA Collection type Not [...] (PCP) Negative NA Chem 8 NPT - 03/26/18 08:23 Anion Gap 10 mEq/L 3-20 BUN [...] Blood erythrocyte morphology finding identification NORMAL NRG Bacterial blood culture - 09/16/19 08:54 Bacterial blood culture NG NRG Complete urinalysis with reflex to cultu [...] ligh t microscopy FEW SHAHEEN URATES NRG Bacterial urine culture - 09/16/19 09:00 Bacterial urine culture NG NRG Influenza virus A and B antigen detectio n - 09/16/19 09:07 FLU RESULT NEGATIVE FOR INFLUENZA A AND B ANTIGENS BY IA NR 2019 Coronavirus SARS-CoV-2 SO - 0 09:07 Coronavirus Ab [Units/volume] in Serum Negative Negative Bacterial blood culture - 09/16/19 09:28 Bacterial blood culture NG NRG Arterial blood gas measurement - 0 [...] G Measurement of body temperature 36.9 NRG Blood lactic acid measurement (moles/vol ume) - 09/16/19 12:30 Blood lactic acid measurement (moles/volume) 0.99 mmol/L 0.50-2.00 Arterial blood gas measurement - 0 16:33 Blood pCO2 36 mm[Hg] 35-45 Blood pO2 65 mm[Hg] 79-93 Arterial blood bicarbonate measurement (moles/volume) 25 mmol/L 23-27 Arterial blood base excess by calculation 2.0 mmol /L -2.5-2.5 Arterial blood oxygen saturation measurement 93 % 94-100 * Inhaled oxygen flow rate 5L NRG Arterial blood pH measurement with patient temperature correction 7.46 7.37-7.43 Arterial blood carbon dioxide, total measurement (mole s/volume) 26.5 mmol/L 21.0-31.0 Body site R RAD NRG Assessment of wrist artery patency prior to arterial p uncture YES-POS NRG Setting of ventilation mode NO NR G Measurement of body temperature 37.4 NRG Whole blood basic metabolic panel - 09/04 08/23 02:20 Serum or plasma sodium measurement (moles/volume) 140 mmol/L 135-145 Serum or plasma potassium measurement (moles/volume) 4.2 mmol/L 3.6-5.0 Serum or plasma chloride measurement (moles/volume) 108 mmol/L 98-107 Carbon dioxide 21 mmol/L 21-32 Serum or plasma anion gap determination (moles/volume) 11 mmol/L 5-14 Serum or plasma urea nitrogen measurement (mass/volume ) 20 mg/dL 7-18 Serum or plasma creatinine measurement (mass/volume) 0.59 mg/dL 0.60-1.30 Serum or plasma urea nitrogen/creatinine mass ratio 34 NRG Serum or plasma creatinine measurement w ith calculation of estimated glomerular filtration rate > NRG Serum or plasma glucose measurement (mass/volume) 97 mg/dL 70-105 Serum or plasma calcium measurement (mass/volume) 7.9 mg/dL 8.5-10.1 Serum or plasma phosphate measurement (m ass/volume) - 09/17/19 02:20 Serum or plasma phosphate measurement (mass/volume) 3.9 mg/dL 2.3-4.7 Magnesium - 09/17/19 02:20 Magnesium 2.0 mg/dL 1.6-2.4 Complete blood count (CBC) with automate d white blood cell (WBC) differential - 09/17/19 02:20 Blood leukocytes automated count (number/volume) 5.9 10*3/uL 4.3-11.0 Blood erythrocytes automated count (number/volume) 3.38 10*6/uL 4.35-5.85 Venous blood hemoglobin measurement (mass/volume) 11.4 g/dL 13.3-17.7 Blood hematocrit (volume fraction) 34 % 40-54 Automated erythrocyte mean corpuscular volume 100 [foz_us] 80-99 Automated erythrocyte mean corpuscular h emoglobin (mass per erythrocyte) 34 pg 25-34 Automated erythrocyte mean corpuscular h emoglobin concentration measurement (mass/volume) 34 g/dL 32-36 Automated erythrocyte distribution width ratio 13. 0 % 10.0- 14.5 Automated blood platelet count (count/volume) 123 10*3/uL 130-400 Automated blood platelet mean volume measurement 10.3 [foz_us] 7.4-10.4 Automated blood neutrophils/100 leukocytes 73 % 42-75 Automated blood lymphocytes/100 leukocytes 11 % 12-44 Blood monocytes/100 leukocytes 16 % 0-12 Automated blood eosinophils/100 leukocytes 0 % 0-10 Automated blood basophils/100 leukocytes 0 % 0-10 Blood neutrophils automated count (number/volume) 4.3 10*3 1.8-7.8 Blood lymphocytes automated count (number/volume) 0.7 10*3 1.0-4.0 Blood monocytes automated count (number/volume) 0. 9 10*3 0.0-1.0 Automated eosinophil count 0.0 10*3/uL 0 .0-0.3 Automated blood basophil count (count/volume) 0.0 10*3/uL 0.0-0.1 Arterial blood gas measurement - 0 05:36 Blood pCO2 34 mm[Hg] 35-45 Blood pO2 101 mm[Hg] 79-93 Arterial blood bicarbonate measurement (moles/volume) 25 mmol/L 23-27 Arterial blood base excess by calculation 1.5 mmol /L -2.5-2.5 Arterial blood oxygen saturation measurement 99 % 94-100 * Inhaled oxygen flow rate 5 NRG Arterial blood pH measurement with patient temperature correction 7.47 7.37-7.43 Arterial blood carbon dioxide, total measurement (mole s/volume) 26.1 mmol/L 21.0-31.0 Body site RIGHT RADIAL NRG Assessment of wrist artery patency prior to arterial p uncture POSITIVE NRG Setting of ventilation mode NO NR G Measurement of body temperature 36.0 NRG Complete blood count (CBC) with automate d white blood cell (WBC) differential - 09/18/19 03:16 Blood leukocytes automated count (number/volume) 10.1 10*3/uL 4.3-11.0 Blood erythrocytes automated count (number/volume) 3.40 10*6/uL 4.35-5.85 Venous blood hemoglobin measurement (mass/volume) 11.5 g/dL 13.3-17.7 Blood hematocrit (volume fraction) 35 % 40-54 Automated erythrocyte mean corpuscular volume 102 [foz_us] 80-99 Automated erythrocyte mean corpuscular h emoglobin (mass per erythrocyte) 34 pg 25-34 Automated erythrocyte mean corpuscular h emoglobin concentration measurement (mass/volume) 33 g/dL 32-36 Automated erythrocyte distribution width ratio 12. 8 % 10.0- 14.5 Automated blood platelet count (count/volume) 136 10*3/uL 130-400 Automated blood platelet mean volume measurement 9.5 [foz_us] 7.4-10.4 Automated blood neutrophils/100 leukocytes 78 % 42-75 Automated blood lymphocytes/100 leukocytes 13 % 12-44 Blood monocytes/100 leukocytes 9 % 0-12 Automated blood eosinophils/100 leukocytes 0 % 0-10 Automated blood basophils/100 leukocytes 0 % 0-10 Blood neutrophils automated count (number/volume) 7.8 10*3 1.8-7.8 Blood lymphocytes automated count (number/volume) 1.3 10*3 1.0-4.0 Blood monocytes automated count (number/volume) 1. 0 10*3 0.0-1.0 Automated eosinophil count 0.0 10*3/uL 0 .0-0.3 Automated blood basophil count (count/volume) 0.0 10*3/uL 0.0-0.1 Whole blood basic metabolic panel - 09/04 09/23 03:16 Serum or plasma sodium measurement (moles/volume) 139 mmol/L 135-145 Serum or plasma potassium measurement (moles/volume) 3.7 mmol/L 3.6-5.0 Serum or plasma chloride measurement (moles/volume) 108 mmol/L 98-107 Carbon dioxide 23 mmol/L 21-32 Serum or plasma anion gap determination (moles/volume) 8 mmol/L 5-14 Serum or plasma urea nitrogen measurement (mass/volume ) 18 mg/dL 7-18 Serum or plasma creatinine measurement (mass/volume) 0.64 mg/dL 0.60-1.30 Serum or plasma urea nitrogen/creatinine mass ratio 28 NRG Serum or plasma creatinine measurement w ith calculation of estimated glomerular filtration rate > NRG Serum or plasma glucose measurement (mass/volume) 107 mg/dL 70-105 Serum or plasma calcium measurement (mass/volume) 7.9 mg/dL 8.5-10.1 Serum or plasma phosphate measurement (m ass/volume) - 09/18/19 03:16 Serum or plasma phosphate measurement (mass/volume) 2.9 mg/dL 2.3-4.7 Magnesium - 09/18/19 03:16 Magnesium 2.1 mg/dL 1.6-2.4 Complete blood count (CBC) with automate d white blood cell (WBC) differential - 09/19/19 05:15 Blood leukocytes automated count (number/volume) 6.2 10*3/uL 4.3-11.0 Blood erythrocytes automated count (number/volume) 2.87 10*6/uL 4.35-5.85 Venous blood hemoglobin measurement (mass/volume) 9.7 g/dL 13.3-17.7 Blood hematocrit (volume fraction) 28 % 40-54 Automated erythrocyte mean corpuscular volume 98 [ foz_us] 80-99 Automated erythrocyte mean corpuscular h emoglobin (mass per erythrocyte) 34 pg 25-34 Automated erythrocyte mean corpuscular h emoglobin concentration measurement (mass/volume) 34 g/dL 32-36 Automated erythrocyte distribution width ratio 12. 4 % 10.0- 14.5 Automated blood platelet count (count/volume) 102 10*3/uL 130-400 Automated blood platelet mean volume measurement 10.0 [foz_us] 7.4-10.4 Automated blood neutrophils/100 leukocytes 72 % 42-75 Automated blood lymphocytes/100 leukocytes 15 % 12-44 Blood monocytes/100 leukocytes 12 % 0-12 Automated blood eosinophils/100 leukocytes 1 % 0-10 Automated blood basophils/100 leukocytes 0 % 0-10 Blood neutrophils automated count (number/volume) 4.5 10*3 1.8-7.8 Blood lymphocytes automated count (number/volume) 0.9 10*3 1.0-4.0 Blood monocytes automated count (number/volume) 0. 7 10*3 0.0-1.0 Automated eosinophil count 0.1 10*3/uL 0 .0-0.3 Automated blood basophil count (count/volume) 0.0 10*3/uL 0.0-0.1 Whole blood basic metabolic panel - 09/04 10/23 05:15 Serum or plasma sodium measurement (moles/volume) 137 mmol/L 135-145 Serum or plasma potassium measurement (moles/volume) 3.2 mmol/L 3.6-5.0 Serum or plasma chloride measurement (moles/volume) 108 mmol/L 98-107 Carbon dioxide 20 mmol/L 21-32 Serum or plasma anion gap determination (moles/volume) 9 mmol/L 5-14 Serum or plasma urea nitrogen measurement (mass/volume ) 10 mg/dL 7-18 Serum or plasma creatinine measurement (mass/volume) 0.51 mg/dL 0.60-1.30 Serum or plasma urea nitrogen/creatinine mass ratio 20 NRG Serum or plasma creatinine measurement w ith calculation of estimated glomerular filtration rate > NRG Serum or plasma glucose measurement (mass/volume) 101 mg/dL 70-105 Serum or plasma calcium measurement (mass/volume) 7.2 mg/dL 8.5-10.1 Serum or plasma phosphate measurement (m ass/volume) - 09/19/19 05:15 Serum or plasma phosphate measurement (mass/volume) 2.7 mg/dL 2.3-4.7 Magnesium - 04/15/20 05:15 Magnesium 1.9 mg/dL 1.6-2.4 Serum or plasma lithium measurement (mol es/volume) - 09/19/19 07:30 BNP PT 110.4 pg/mL <100.0 Radiology Report from [id number] on 03/02 14:57:00 Reason For ExamupsetREPORTIndication: An xietyPortable chest 8:19 AMThere is scoliosis of the thoracic spine convex to the right. Heart size andpulmonary vascularity are normal. There are no infiltrates, effusions orpneumothoraces.Impression: No acute abnormalities in the chest.Dictated on workstation:[id number] Line FINAL DICTATED BY: PERI TOSCANO MDDICTATED DT/TM: 03/02/2016 8:25 AMSIGNED BY: PERI TOSCANO MDSIGNED (ELECTRONIC SIGNATURE): 03/02/2016 8:26 AMTECHNOLOGIST: KELI LI RT(R) Radiology Report from [id number] on 06/03 08:45:00 Reason For Examfall/ head [...] disease with no acute fracture ordislocation.Dictated on workstation:[id number] Line PRELIMINARY DICTATED BY: AMANUEL TOLLIVER MDDICTATED DT/TM: 06/03/2016 8:30 Radiology Report from [id number] on 06/15 11:23:00 Reason For ExamHead InjuryREPORTINDICATI [...] noted and appear similar to 06/03/2016.Dictated on workstation:[id number] Line PRELIMINARY DICTATED BY: CHASTITY SRIVASTAVA MDDICTATED DT/TM: 06/15/2016 11:18 Radiology Report from [id number] on 08/29 13:23:00 Reason For Examfall, hx [...] evidence of acute cervical spinal abnormality.Dictated on workstation:[id number] Line PRELIMINARY DICTATED BY: ELIZABETH ELMA MDDICTATED DT/TM: 08/29/2017 8:52 Encounters ACCT No. Visit Date/Time Discharge Status Pt. Type Provider Facility Loc./Unit Complaint [id number] 01/06/2017 12:20:00 01/06/2017 23:5 9:59 [facility] Outpatient [id number] 08/29/2017 07:33:00 018 10:33:00 DIS Emergency Altamirano Jacob [facility] ED seizure [id number] 06/15/2016 07:05:00 017 12:27:00 DIS Emergency Hammer Denise [facility] ED seizures [id number] 06/03/2016 07:03:00 016 10:38:00 DIS Emergency Zamora Daniel [facility] on [facility] ED seizure [id number] 03/02/2016 07:32:00 016 10:37:00 DIS Emergency Moises Johansen [facility] ED SBH [id number] 09/24/2015 19:26:00 016 22:23:00 DIS Emergency Rashid Curtis DO [facility] ED psych eval [id number] 02/07/2015 08:08:00 015 12:10:00 DIS Emergency Abdulaziz Ruiz [facility] on [facility] ED soa, abd pain, tbi [id number] 08/30/2017 05:19:20 Document Registration [id number] 06/16/2016 05:17:01 Document Registration [id number] 04/26/2015 05:17:17 Document Registration [id number] 04/22/2015 05:17:18 Document Registration [id number] 04/19/2015 05:16:32 Document Registration [id number] 04/18/2015 05:16:40 Document Registration [id number] 03/26/2015 13:43:52 Document Registration [id number] 03/26/2015 12:22:21 Document Registration [id number] 03/26/2015 12:01:40 Document Registration [id number] 03/26/2015 11:54:41 Document Registration [id number] 09/16/2019 10:40:00 020 12:35:00 DIS Inpatient INGEL DIEHL, SHARA Peñaloza [facility] 4TH PNA, HYPOXIA, SEPSIS [id number] 07/30/2019 10:58:00 020 23:59:59 CLS Outpatient AIDA VENTURA DO [facility] LAB ANEMIA [id number] 06/29/2019 14:53:00 020 23:59:59 CLS Outpatient AIDA VENTURA DO A [facility] LAB RASH [id number] 11/22/2018 08:38:00 019 23:59:59 CLS Outpatient DANIEL DIEHL, TACO Lyn [facility] RAD INCONTENANCE [id number] 10/29/2018 18:06:00 019 19:36:00 DIS Emergency LUZMA TAVARES [facility] ER FALL [id number] 10/06/2018 21:01:00 019 00:15:00 DIS Emergency DIONNE LAGOS APRN [facility] ER AGGRESSION [id number] 06/15/2016 07:05:00 Document Registration [id number] 06/03/2016 07:03:00 Document Registration [id number] 06/21/2016 17:40:00 07/05/2016 16:00 :00 DIS Inpatient ARMINDA DIEHL, BRIAN [facility]
--- NOTE | 2019-09-21 07:10 | NUR ---
OXYGEN TURNED OFF PER DR FAROOQ ORDERS.
--- NOTE | 2019-09-21 07:18 | NUR ---
PULSE OX ROOM AIR 100% RA.
[2019-09-21 07:19] LABS: BILIRUBIN,URINE NEGATIVE (NEGATIVE); CLARITY,URINE CLEAR; COLOR,URINE AMBER; GLUCOSE, URINE (UA) NEGATIVE (NEGATIVE); KETONES,URINE NEGATIVE (NEGATIVE); LEUKOCYTE ESTERASE ,URINE NEGATIVE (NEGATIVE); NITRITE,URINE NEGATIVE (NEGATIVE); PH,URINE 6.5 (5-9); PROTEIN,URINE NEGATIVE (NEGATIVE)
--- NOTE | 2019-09-21 07:19 | NUR ---
LAB CONTACTED FOR BLOOD DRAW.
[2019-09-21 07:27] LABS: BACTERIA,URINE TRACE /HPF; RBC,URINE 0-2 /HPF; SQUAMOUS EPITHELIAL CELL,UR 0-2 /HPF
--- NOTE | 2019-09-21 07:30 | ED General ---
General Chief Complaint: Cardiac/General Problems Stated Complaint: SOB Nursing Triage Note: BROUGHT IN BY [facility] FROM [facility] FOR REPORT OF LOW SPO2 ET. HTN. DC'D FROM HOSPITAL 09/19/2019 WITH PNEUMONIA DX. Nursing Sepsis Screen: No Definite Risk Source of Information: EMS, [facility] Records, Old Records Exam Limitations: Physical Impairments History of Present Illness Date Seen by Provider: Sep 21, 2019 Time Seen by Provider: 06:49 Initial Comments This 64-year-old gentleman presents to the emergency room from [facility] with reports of systolic blood pressure up to 202 and oxygen saturation of 78 percent on room air. He can provide no history as he has severe disabilities, schizophrenia, traumatic brain injury, and dementia per record. He was admitted to the hospital from September 15 through September 18 with pneumonia and sepsis. He returned to residential on antibiotics. On assess ment in the ER he is afebrile with normal vital signs. Oxygen saturation is 97 percent on room air and he is normotensive. COVID-19 testing on his prior visit was negative. Mental status is reportedly at baseline. Allergies and Home Medications Allergies Coded Allergies: No Known Drug Allergies (Unverified , 10/06/18) Home Medications Acetaminophen 325 Mg Tablet, 650 MG PO Q4H PRN for PAIN-MILD (1-4) OR TEMPATURE, (Reported) Albuterol Sulfate 1 Puff Puff, 2 PUFF INH Q4H, (Reported) Benztropine Mesylate 2 Mg Tablet, 2 MG PO TID, (Reported) Bisacodyl 5 Mg Tablet.dr, 10 MG PO PRN PRN for CONSTIPATION-1ST LINE, (Reported) Bisacodyl 10 Mg Supp.rect, 10 MG RC DAILY PRN for CONSTIPATION-4TH LINE, (Reported) Cefdinir 300 Mg Capsule, 300 MG PO BID Prescribed by: KYLE WILSON on 09/19/19 0824 Cyanocobalamin (Vitamin B-12) 1,000 Mcg Tablet, 1,000 MCG PO DAILY, (Reported) Divalproex Sodium 125 Mg Cap, 375 MG PO TID, (Reported) TAKES 3 (125MG) CAPS TO EQUAL 375MG THREE TIMES DAILY Docusate Sodium 100 Mg Capsule, 100 MG PO BID, (Reported) Folic Acid 0.8 Mg Tablet, 1 MG PO DAILY, (Reported) Haloperidol Decanoate 50 Mg/1 Ml Ampul, 37.5 MG IM MONTHLY, (Reported) Hydroxyzine HCl 25 Mg Tablet, 25 MG PO TID, (Reported) Levetiracetam 1,000 Mg Tablet, 1,000 MG PO BID, (Reported) Loratadine 10 Mg Tablet, 10 MG PO DAILY, (Reported) Losartan Potassium 25 Mg Tablet, 25 MG PO DAILY, (Reported) HOLD IF SBP <90 OR >180 Magnesium Hydroxide 400 Mg/5 Ml Oral.susp, 30 ML PO DAILY PRN for CONSTIPATION- 7TH LINE, (Reported) Melatonin 5 Mg Tablet, 10 MG PO HS PRN for SLEEP, (Reported) Memantine HCl 28 Mg Cap.spr.24, 28 MG PO DAILY, (Reported) Multivitamin 1 Each Tablet, 1 EACH PO DAILY, (Reported) Polyethylene Glycol 3350 17 Gm Powd.pack, 17 GM PO DAILY, (Reported) Sennosides 8.6 Mg Tablet, 17.2 MG PO DAILY, (Reported) Sertraline HCl 25 Mg Tablet, 75 MG PO DAILY, (Reported) TAKES 3(25MG) TABS TO EQUAL 75MG Tramadol HCl 50 Mg Tablet, 50 MG PO BID PRN for PAIN-MILD (1-4), (Reported) Trazodone HCl 50 Mg Tablet, 50 MG PO HS, (Reported) Triamcinolone Acetonide 430 Gm Oint...g., 1 APPLIC TP BID, (Reported) Patient Home Medication List Home Medication List Reviewed: Yes Review of Systems Review of Systems Constitutional: see HPI EENTM: no symptoms reported Respiratory: see HPI Cardiovascular: no symptoms reported Gastrointestinal: no symptoms reported Genitourinary: no symptoms reported Musculoskeletal: no symptoms reported Skin: no symptoms reported Psychiatric/Neurological: No Symptoms Reported Hematologic/Lymphatic: See HPI Immunological/Allergic: no symptoms reported Past Bjnlmem-Mimbtz-Mttkgh Hx Past Med/Social Hx: Reviewed and Corrections made Patient Social History Alcohol Use: Denies Use Recreational Drug Use: No Smoking Status: Unknown if Ever Smoked 2nd Hand Smoke Exposure: No Recent Foreign Travel: No Contact w/Someone Who Travel: No Recent Infectious Disease Expo: No Recent Hopitalizations: Yes (PNEUMONIA) Physical Abuse: No Sexual Abuse: No Mistreated: No Fear: No Immunizations Up To Date Tetanus Booster (TDap): Unknown Past Medical History Surgeries: No (not reported) Respiratory: Yes Pneumonia Cardiac: Yes Hypertension Neurological: Yes Dementia, Seizure Disorder, Traumatic Brain Injury Genitourinary: Yes (RETENTION OF URINE) Prostate Problems Gastrointestinal: Yes (HEP B, HEP C) Chronic Constipation, Hepatitis Musculoskeletal: No Endocrine: No HEENT: Yes Loss of Vision: Right Cancer: No Psychosocial: Yes Schizophrenia, Depression Integumentary: No Blood Disorders: Yes (HEP C+ HEP B) Family Medical History Reviewed Nursing Family Hx (not known) Physical Exam Vital Signs Vital Signs - First Documented 09/21/19 06:48 Temp 36.0 Pulse 61 Resp 18 B/P (MAP) 127/84 (98) O2 Delivery Room Air Capillary Refill : Less Than 3 Seconds Height, Weight, BMI Height: 5'8.00" Weight: 150lbs. oz. 68.389666of; 18.00 BMI Method:Estimated General Appearance: No Apparent Distress, WD/WN HEENT: Normal ENT Inspection, Other (will not open his eyes or allow his eyelids to be lifted) Neck: Normal Inspection Respiratory: Lungs Clear, Normal Breath Sounds, No Accessory Muscle Use, No Respiratory Distress Cardiovascular: Regular Rate, Rhythm, No Murmur, Normal Peripheral Pulses, Other (mild anasarca including the face and hands) Gastrointestinal: Normal Bowel Sounds, Non Tender, Soft Extremity: Non Tender, Swelling Neurologic/Psychiatric: Alert, Other (hollers and groans. Has spontaneous limb movements. This is baseline per residential staff and EMS.) Skin: Normal Color, Warm/Dry, Other (capillary refill in fingers less than 3 seconds) Focused Exam Lactate Level 09/21/19 07:35: Lactic Acid Level 0.91 Lactic Acid Level Laboratory Tests Test 09/21/19 07:35 Lactic Acid Level 0.91 MMOL/L (0.50-2.00) Progress/Results/Core Measures Suspected Sepsis Recent Fever Within 48 Hours: No Infection Criteria Present: Documented Infection New/Unexplained Altered Menta: No Sepsis Screen: No Definite Risk SIRS Temperature: Pulse: 61 Respiratory Rate: 18 Laboratory Tests 09/21/19 07:35: White Blood Count 5.8 Blood Pressure 127 /84 Mean: 98 09/21/19 07:35: Lactic Acid Level 0.91 Laboratory Tests 09/21/19 07:35: Creatinine 0.61, INR Comment 1.2, Platelet Count 138, Total Bilirubin 0.6 Results/Orders Lab Results Laboratory Tests Test 09/21/19 07:10 09/21/19 07:35 Range/Units Urine Color THAIS H Urine Clarity CLEAR Urine pH 6.5 5-9 Urine Specific [place] >=1.030 1.016-1.022 Urine Protein NEGATIVE NEGATIVE Urine Glucose (UA) NEGATIVE NEGATIVE Urine Ketones NEGATIVE NEGATIVE Urine Nitrite NEGATIVE NEGATIVE Urine Bilirubin NEGATIVE NEGATIVE Urine Urobilinogen 4.0 < = 1.0 MG/DL Urine Leukocyte Esterase NEGATIVE NEGATIVE Urine RBC (Auto) NEGATIVE NEGATIVE Urine RBC 0-2 /HPF Urine WBC 5-10 H /HPF Urine Squamous Epithelial Cells 0-2 /HPF Urine Crystals NONE /LPF Urine Bacteria TRACE /HPF Urine Casts NONE /LPF Urine Mucus MODERATE H /LPF Urine Culture Indicated YES White Blood Count 5.8 4.3-11.0 10^3/uL Red Blood Count 3.13 L 4.35-5.85 10^6/uL Hemoglobin 10.5 L 13.3-17.7 G/DL Hematocrit 31 L 40-54 % Mean Corpuscular Volume 99 80-99 FL Mean Corpuscular Hemoglobin 34 25-34 PG Mean Corpuscular Hemoglobin Concent 34 32-36 G/DL Red Cell Distribution Width 12.5 10.0-14.5 % Platelet Count 138 130-400 10^3/uL Mean Platelet Volume 8.8 7.4-10.4 FL Neutrophils (%) (Auto) 69 42-75 % Lymphocytes (%) (Auto) 14 12-44 % Monocytes (%) (Auto) 17 H 0-12 % Eosinophils (%) (Auto) 1 0-10 % Basophils (%) (Auto) 0 0-10 % Neutrophils # (Auto) 4.0 1.8-7.8 X 10^3 Lymphocytes # (Auto) 0.8 L 1.0-4.0 X 10^3 Monocytes # (Auto) 1.0 0.0-1.0 X 10^3 Eosinophils # (Auto) 0.0 0.0-0.3 10^3/uL Basophils # (Auto) 0.0 0.0-0.1 10^3/uL Prothrombin Time 15.8 H 12.2-14.7 SEC INR Comment 1.2 0.8-1.4 Activated Partial Thromboplast Time 35 24-35 SEC Sodium Level 139 135-145 MMOL/L Potassium Level 3.5 L 3.6-5.0 MMOL/L Chloride Level 104 98-107 MMOL/L Carbon Dioxide Level 28 21-32 MMOL/L Anion Gap 7 5-14 MMOL/L Blood Urea Nitrogen 10 7-18 MG/DL Creatinine 0.61 0.60-1.30 MG/DL Estimat Glomerular Filtration Rate > 60 BUN/Creatinine Ratio 16 Glucose Level 82 70-105 MG/DL Lactic Acid Level 0.91 0.50-2.00 MMOL/L Calcium Level 7.9 L 8.5-10.1 MG/DL Corrected Calcium 9.1 8.5-10.1 MG/DL Total Bilirubin 0.6 0.1-1.0 MG/DL Aspartate Amino Transf (AST/SGOT) 30 5-34 U/L Alanine Aminotransferase (ALT/SGPT) 22 0-55 U/L Alkaline Phosphatase 54 40-136 U/L C-Reactive Protein High Sensitivity 9.84 H 0.00-0.50 MG/DL B-Type Natriuretic Peptide 66.7 <100.0 PG/ML Total Protein 5.8 L 6.4-8.2 GM/DL Albumin 2.5 L 3.2-4.5 GM/DL Procalcitonin 0.09 <0.10 NG/ML Valproic Acid (Depakene) Level 53.2 50.0-100.0 UG/ML My Orders Orders - DAVID SANTIZO MD Hs C Reactive Protein (09/21/19 06:55) Valproic Acid (09/21/19 06:55) BNP (09/21/19 06:55) Procalcitonin (Pct) (09/21/19 06:55) Cbc With Automated Diff (09/21/19 06:55) Comprehensive Metabolic Panel (09/21/19 06:55) Blood Culture (09/21/19 06:55) Sputum Culture (09/21/19 06:55) Urinalysis (09/21/19 06:55) Urine Culture (09/21/19 06:55) Protime With Inr (09/21/19 06:55) Partial Thromboplastin Time (09/21/19 06:55) Chest 1 View, Ap/Pa Only (09/21/19 06:55) Ed Iv/Invasive Line Start (09/21/19 06:55) Ed Iv/Invasive Line Start (09/21/19 06:55) Vital Signs Adult Sepsis Patie Q15M (09/21/19 06:55) O2 (09/21/19 06:55) Remove Rings In Anticipation O (09/21/19 06:55) Lactic Acid Analyzer (09/21/19 06:55) Vital Signs/I&O 09/21/19 06:48 Temp 36.0 Pulse 61 Resp 18 B/P (MAP) 127/84 (98) O2 Delivery Room Air Capillary Refill : Less Than 3 Seconds Blood Pressure Mean: 98 Progress Note : Progress Note Patient did not have any significant hypertension or hypoxia during his ER stay. CRP is trending down and pro-calcitonin is normal. Chest x-ray did show increased infiltrate from the prior but this may be lagging behind the overall clinical condition and may represent fluid status as well. Patient should still have 3 days worth of Omnicef. This should get him through the weekend. Diagnostic Imaging Diagonstic Imaging: Xray Plain Films/CT/US/NM/MRI: chest Comments Chest x-ray viewed by me and compared with prior. Report reviewed. See report below: NAME: INNA JOHNSON [facility] REC#: [id number] PT STATUS: REG ER : 1955 PHYSICIAN: DAVID SANTIZO MD ADMIT DATE: 09/21/19/ER Draft Date of Exam:09/21/19 CHEST 1 VIEW, AP/PA ONLY INDICATION: Low oxygen saturation. TIME OF EXAM: 7:59 AM Correlation is made with prior chest radiograph from 09/18/2019. Heart size stable. There appears to be some increasing infiltrate in the right base since exam 3 days earlier. Left lung is clear. No significant effusion is identified. There is no pneumothorax. IMPRESSION: Increasing right basilar infiltrate when compared with examination 3 days earlier. Dictated on workstation # [id number] Dict: 09/21/19827 Trans: 09/21/19833 CV [id number] Interpreted by: RIANNA BHATT MD Departure Impression Primary Impression: Right lower lobe pneumonia Qualified Codes: J18.1 - Lobar pneumonia, unspecified organism Disposition: 01 HOME, SELF-CARE Condition: Improved Departure-Patient Inst. Decision time for Depature: 08:51 Referrals: AIDA VENTURA DO (PCP/Family) Primary Care Physician Patient Instructions: Pneumonia in Adults Add. Discharge Instructions: No hypoxia or significant hypertension was noted in the ER. Please complete antibiotics as prescribed. Please contact primary care provider to give an update upon return to the residential. Follow-up with primary care provider soon as possible, preferably Tuesday morning. Please arrange this follow-up today. Call primary care provider and/or return to the emergency room if there are worsening symptoms or development of new symptoms such as fever. All discharge instructions reviewed with patient and/or family. Voiced understanding. Copy Copies To 1: AIDA VENTURA JOSHUA T MD Sep 21, 2019 07:29
[2019-09-21 07:45] LABS: BASOPHILS % (AUTO) 0 % (0-10); EOSINOPHILS % (AUTO) 1 % (0-10); HEMATOCRIT 31 % (40-54); HEMOGLOBIN 10.5 G/DL (13.3-17.7); LYMPHOCYTES # (AUTO) 0.8 X 10^3 (1.0-4.0); LYMPHOCYTES % (AUTO) 14 % (12-44); MEAN CORPUSCULAR HEMOGLOBIN 34 PG (25-34); MEAN CORPUSCULAR HGB CONC 34 G/DL (32-36); MEAN CORPUSCULAR VOLUME 99 FL (80-99); MEAN PLATELET VOLUME 8.8 FL (7.4-10.4); MONOCYTES % (AUTO) 17 % (0-12); NEUTROPHILS % (AUTO) 69 % (42-75); PLATELET COUNT 138 10^3/uL (130-400); RED CELL DISTRIBUTION WIDTH 12.5 % (10.0-14.5); WHITE BLOOD COUNT 5.8 10^3/uL (4.3-11.0)
[2019-09-21 08:04] LABS: ALBUMIN 2.5 GM/DL (3.2-4.5); CHLORIDE 104 MMOL/L (98-107); POTASSIUM 3.5 MMOL/L (3.6-5.0); SODIUM 139 MMOL/L (135-145)
[2019-09-21 08:05] LABS: CALCIUM 7.9 MG/DL (8.5-10.1)
[2019-09-21 08:06] LABS: GLUCOSE 82 MG/DL (70-105)
[2019-09-21 08:07] LABS: INR 1.2 (0.8-1.4); PROTHROMBIN TIME PATIENT 15.8 SEC (12.2-14.7); TOTAL PROTEIN 5.8 GM/DL (6.4-8.2)
[2019-09-21 08:08] LABS: BILIRUBIN,TOTAL 0.6 MG/DL (0.1-1.0); CARBON DIOXIDE 28 MMOL/L (21-32)
[2019-09-21 08:10] LABS: ALKALINE PHOSPHATASE 54 U/L (40-136); CREATININE SERUM 0.61 MG/DL (0.60-1.30); GFR ESTIMATED > 60
[2019-09-21 08:11] LABS: BUN/CREATININE RATIO 16
[2019-09-21 08:13] LABS: ALANINE AMINOTRANSFERASE 22 U/L (0-55)
[2019-09-21 08:20] LABS: VALPROIC ACID 53.2 UG/ML (50.0-100.0)
--- NOTE | 2019-09-21 08:34 | Diagnostic Imaging Report ---
INDICATION: Low oxygen saturation. TIME OF EXAM: 7:59 AM Correlation is made with prior chest radiograph from 09/18/2019. Heart size stable. There appears to be some increasing infiltrate in the right base since exam 3 days earlier. Left lung is clear. No significant effusion is identified. There is no pneumothorax. IMPRESSION: Increasing right basilar infiltrate when compared with examination 3 days earlier. Dictated by: Dictated on workstation # [id number]
--- NOTE | 2019-09-21 08:36 | NUR ---
RESTING IN BED WITH EYES CLOSED.
--- NOTE | 2019-09-21 09:03 | NUR ---
CORRECTION CONTACTED FOR FRONT END ALIGNMENT SPECIALIST.
--- NOTE | 2019-09-21 09:48 | NUR ---
DR CALLED AND TALKED TO [facility] WHO HAD MORE QUESTIONS. THEY STATE THEY WILL BE HERE IN 30 MINUTES.
--- NOTE | 2019-09-21 10:03 | NUR ---
ANOTHER WARM BLANKET APPLIED. VSS.
[2019-09-21 10:30] VITALS: BP 127/84
== END 2019-09-21 10:30 | disposition home or self-care (01) ==
LOC: EDUNIT# 06:48 → ER 06:49
DX: J18.1 Lobar pneumonia, unspecified organism (principal); I10 Essential (primary) hypertension; F03.90 Unspecified dementia, unspecified severity, without behavioral disturbance, psychotic disturbance, mood disturbance, and anxiety; G40.909 Epilepsy, unspecified, not intractable, without status epilepticus; F20.9 Schizophrenia, unspecified; F32.9 Major depressive disorder, single episode, unspecified; B19.20 Unspecified viral hepatitis C without hepatic coma; K59.09 Other constipation; Z87.820 Personal history of traumatic brain injury
CPT/HCPCS: 36415; 51701; 71045; 80053; 80164; 81000; 83605; 83880; 84145; 85025; 85610; 85730; 86141; 87040; 87088

== ENCOUNTER 2019-11-17 16:24 | Emergency (ER) | payer MEDICAID ==
[~2019-11-17] VITALS: Ht 165 cm; Wt 49.8 kg
[~2019-11-17 16:24] MED LIST changes: +CYAN500T62 PO; +FOLI1TAB24 PO; +NA P133E22 RC
--- OUTSIDE RECORDS SUMMARY | 2019-11-17 16:30 | XMS REPORT | Continuity of Care Document ---
Author Organization Unknown Address Unknown Phone Unavailable Allergies Active Description Code Type Severity Reaction Onset Reported/Identified Relationship to Patient Clinical Status Yes No Known Allergies NKMA N/A N/A 09/13/2014 Yes No Known Drug Allergies [id number] Drug Allergy Unknown N/A 10/06/2018 Medications Medication [...] of consciousness, initial enco 06/04/2016 W F03.90 Dem entia 06/04/2016 W H53.9 Visu al disturbance 06/04/2016 W H54.3 Ariella gory 9 visual impairment in both eyes 06/04/2016 W I10 HTN 06/07/2016 Zamora Daniel Final F03. 90 Unspecified [...] Daniel Final Y 92.[address] in retirement as the place of occurrence of the externa 06/09/2016 W F03.90 Dem entia 06/09/2016 W H53.9 Visu al disturbance 06/09/2016 W H54.3 Ariella gory 9 visual impairment in both eyes 06/09/2016 W I10 HTN 06/17/2016 Harman,, Caro Reason R56 .9 Unspecified convulsions 07/05/2016 ARIMNDA DIEHL, BRIAN Pérez B19.10 Unspecified viral hepatitis B without hepatic coma 07/05/2016 ARMINDA DIEHL, BRIAN Pérez B19.20 Unspecified viral hepatitis C without hepatic coma 07/05/2016 BRIAN HILLIARD MD E53.8 Deficiency of other specified B group vitamins 07/05/2016 BRIAN HILLIARD MD 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, NEC 07/05/2016 BRIAN HILLIARD MD F01.51 Vascular dementia with behavioral disturbance 07/05/2016 BRIAN HILLIARD MD F31.2 Bipolar disord, crnt episode manic severe w psych features 07/05/2016 BRIAN HILLIARD MD F41.8 Other specified anxiety disorders 07/05/2016 BRIAN HILLIARD MD 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, right eye, normal vision left eye 07/05/2016 BRIAN HILLIARD MD I10 Essential (primary) hypertension 07/05/2016 BRIAN HILLIARD MD K59.09 Other constipation 07/05/2016 BRIAN HILLIARD MD R00.1 Bradycardia, unspecified 07/05/2016 BRIAN HILLIARD MD R45.1 Restlessness and agitation 01/06/2017 F B18.2 Fiberglass Roving Winder adonis viral hepatitis C John Spencer S 01/06/2017 F B19.10 Uns pecified viral hepatitis B without hepatic coma John Spencer S 01/06/2017 F F03.91 Uns pecified dementia with behavioral disturbance John Spencer S 01/06/2017 F F20.9 Schi zophrenia, unspecified Tj, John S 01/06/2017 F F32.9 Samantha r depressive disorder, single episode, unspecified Tj, John S 01/06/2017 F F41.9 Anxi ety disorder, unspecified Tj, John S 01/06/2017 F H53.9 Unsp ecified visual disturbance Tj John S 01/06/2017 F H54.3 Unqu alified visual loss, both eyes Tj, John S 01/06/2017 F H54.41 Bli ndness, right eye, normal vision left eye John Spencer S 01/06/2017 F I10 Essent ial (primary) hypertension Tj John S 01/06/2017 F I15.8 Othe r secondary hypertension Tj John S 01/06/2017 F K21.0 Bora ro-esophageal reflux disease with esophagitis John Spencer S 01/06/2017 F R56.9 Unsp ecified convulsions John Spencer S 01/06/2017 F Z87.820 Pe rsonal history of traumatic brain injury John Spencer 01/07/2017 F F03.91 Uns pecified dementia with behavioral disturbance Dame, Soha 01/07/2017 F F20.9 Schi zophrenia, unspecified Dame, Soha 01/07/2017 F F32.9 Samantha r depressive disorder, single episode, unspecified Dame, Soha 01/07/2017 F F41.9 Anxi ety disorder, unspecified Dame, Soha 08/30/2017 Altamirano Jacob Final F03.90 Unspecified dementia without behavioral disturbance 08/30/2017 Altamirano Jacob Final G40.90 9 Epilepsy, unspecified, not intractable, without status epilepticus 08/30/2017 Altamirano Jacob Final I10 Essential (primary) hypertension 08/30/2017 Adarsh,Dave Final K21.9 Gastro-esophageal reflux disease without esophagitis 08/30/2017 Adarsh,Dave Final M50.32 2 Other cervical disc degeneration at C5-C6 level 08/30/2017 Altamirano Jacob Reason R56.9 Unspecified convulsions 08/30/2017 Altamirano Jacob Final S00.93 XA Contusion of unspecified part of head, initial encounter 08/30/2017 Altamirano Jacob Final S09.8X XA Other specified injuries of head, initial encounter 08/30/2017 Altamirano Jacob Final W22.09 XA Striking against other stationary object, initial encounter 08/30/2017 Altamirano Jacob Final Y92.[address] in retirement as the place of occurrence of the externa 08/30/2017 Altamirano Jacob Final Z79.89 9 Other half-way (current) drug therapy 08/30/2017 Altamirano Jacob Final Z87.82 0 Personal history of traumatic brain injury 10/07/2018 DIONNE LAGOS PHYSICIAN EXTENDER Ot B19.20 UNSPECIFIED VIRAL HEPATITIS C WITHOUT HE 10/07/2018 DIONNE LAGOS PHYSICIAN EXTENDER Ot F03.90 UNSPECIFIED DEMENTIA WITHOUT BEHAVIORAL 10/07/2018 DIONNE LAGOS PHYSICIAN EXTENDER Ot F20 .9 SCHIZOPHRENIA, UNSPECIFIED 10/07/2018 DIONNE LAGOS APRN Ot N32 .0 BLADDER-NECK OBSTRUCTION 10/07/2018 DIONNE LAGOS APRN Ot R45 .1 RESTLESSNESS AND AGITATION 10/07/2018 DIONNE LAGOS APRN Ot Z87.820 PERSONAL HISTORY OF TRAUMATIC BRAIN INJU 10/09/2018 DIONNE LAGOS PHYSICIAN EXTENDER Ot B19.20 UNSPECIFIED VIRAL HEPATITIS C WITHOUT HE 10/09/2018 DIONNE LAGOS PHYSICIAN EXTENDER Ot F03.90 UNSPECIFIED DEMENTIA WITHOUT BEHAVIORAL 10/09/2018 DIONNE LAGOS PHYSICIAN EXTENDER Ot F20 .9 SCHIZOPHRENIA, UNSPECIFIED 10/09/2018 DIONNE LAGOS PHYSICIAN EXTENDER Ot N32 .0 BLADDER-NECK OBSTRUCTION 10/09/2018 DIONNE LAGOS APRN Ot R45 .1 RESTLESSNESS AND AGITATION 10/09/2018 DIONNE LAGOS PHYSICIAN EXTENDER Ot Z87.820 PERSONAL HISTORY OF TRAUMATIC BRAIN [...] LUZMA TAVARES Ot Y92.[address] IN CORRECTION PLACE 10/29/2018 LUZMA TAVARES Ot Z87.19 PERSONAL [...] LUZMA TAVARES Ot Y92.[address] IN CORRECTION PLACE 11/02/2018 LUZMA TAVARES Ot Z87.19 PERSONAL HISTORY OF OTHER DISEASES OF TH 07/02/2019 GELLENDER DO, AIDA A Ot R21 RASH AND OTHER NONSPECIFIC SKIN ERUPTION 07/16/2019 GELLENDER DO, AIDA A Ot R21 RASH AND OTHER NONSPECIFIC SKIN ERUPTION 08/05/2019 GELLENDER DO, AIDA A Ot D64.9 ANEMIA, UNSPECIFIED 09/18/2019 NIGEL DIEHL, SHARA Peñaloza Ot A41. 9 SEPSIS, UNSPECIFIED ORGANISM 09/18/2019 NIGEL DIEHL, SHARA Peñaloza Ot B19. 10 UNSPECIFIED VIRAL HEPATITIS B WITHOUT HE 09/18/2019 NIGEL DIEHL, SHARA Peñaloza Ot B19. 20 UNSPECIFIED VIRAL HEPATITIS C WITHOUT HE 09/18/2019 NIGEL DIEHL, SHARA Peñaloza Ot E87. 2 ACIDOSIS 09/18/2019 SHARA MANNING [...] 1 BRADYCARDIA, UNSPECIFIED 09/19/2019 SHARA MANNING MD M Ot R33. 8 OTHER RETENTION OF URINE 09/19/2019 NIGEL DIEHL, SHARA Peñaloza Ot R65. 20 SEVERE SEPSIS WITHOUT SEPTIC SHOCK 09/19/2019 NIGEL DIEHL, SHARA Peñaloza Ot R79. 1 ABNORMAL COAGULATION PROFILE 09/19/2019 NIGEL DIEHL, SHARA Peñaloza Ot Z87.820 PERSONAL HISTORY OF TRAUMATIC BRAIN INJU 09/21/2019 SUKHDEV DIEHL, DAVID Roberts Ot B19.20 UNSPECIFIED VIRAL HEPATITIS C WITHOUT HE 09/21/2019 SUKHDEV DIEHL, DAVID Roberts Ot F03.90 UNSPECIFIED DEMENTIA WITHOUT BEHAVIORAL 09/21/2019 DAVID SANTIZO MD Ot F20.9 SCHIZOPHRENIA, UNSPECIFIED 09/21/2019 DAVID SANTIZO MD Ot F32.9 MAJOR DEPRESSIVE DISORDER, SINGLE EPISOD 09/21/2019 DAVID SANTIZO MD Ot G40.909 EPILEPSY, UNSP, NOT INTRACTABLE, WITHOUT 09/21/2019 DAVID SANTIZO MD Ot I10 ESSENTIAL (PRIMARY) HYPERTENSION 09/21/2019 DAVID SANTIZO MD Ot J18.1 LOBAR PNEUMONIA, UNSPECIFIED ORGANISM 09/21/2019 DAVID SANTIZO MD Ot K59.09 OTHER CONSTIPATION 09/21/2019 SUKHDEV DIEHL, DAVID Roberts Ot R06.02 SHORTNESS OF BREATH 09/21/2019 DAVID SANTIZO MD Ot Z87.820 PERSONAL HISTORY OF TRAUMATIC BRAIN INJU 09/24/2019 DAVID SANTIZO MD Ot B19.20 UNSPECIFIED VIRAL HEPATITIS C WITHOUT HE 09/24/2019 DAVID SANTIZO MD Ot F03.90 UNSPECIFIED DEMENTIA WITHOUT BEHAVIORAL 09/24/2019 DAVID SANTIZO MD Ot F20.9 SCHIZOPHRENIA, UNSPECIFIED 09/24/2019 DAVID SANTIZO MD Ot F32.9 MAJOR DEPRESSIVE DISORDER, SINGLE EPISOD 09/24/2019 DAVID SANTIZO MD Ot G40.909 EPILEPSY, UNSP, NOT INTRACTABLE, WITHOUT 09/24/2019 DAVID SANTIZO MD T Ot I10 ESSENTIAL (PRIMARY) HYPERTENSION 09/24/2019 DAVID SANTIZO MD Ot J18.1 LOBAR PNEUMONIA, UNSPECIFIED ORGANISM 09/24/2019 DAVID SANTIZO MD Ot K59.09 OTHER CONSTIPATION 09/24/2019 DAVID SANTIZO MD Ot R06.02 SHORTNESS OF BREATH 09/24/2019 DAVID SANTIZO MD Ot Z87.820 PERSONAL HISTORY OF TRAUMATIC BRAIN INJU 10/09/2019 JERSON BURDEN MD Ot A41. 9 SEPSIS, UNSPECIFIED ORGANISM 10/09/2019 JERSON BURDEN MD Ot B19. 10 UNSPECIFIED VIRAL HEPATITIS B WITHOUT HE 10/09/2019 JERSON BURDEN MD Ot B19. 20 UNSPECIFIED VIRAL HEPATITIS C WITHOUT HE 10/09/2019 JERSON BURDEN MD Ot F03. 90 UNSPECIFIED DEMENTIA WITHOUT BEHAVIORAL 10/09/2019 JERSON BURDEN MD Ot F20. 9 SCHIZOPHRENIA, UNSPECIFIED 10/09/2019 JERSON BURDEN MD Ot F32. 9 MAJOR DEPRESSIVE DISORDER, SINGLE EPISOD 10/09/2019 JERSON BURDEN MD Ot G40.909 EPILEPSY, UNSP, NOT INTRACTABLE, WITHOUT 10/09/2019 JERSON BURDEN MD Ot H54. 60 UNQUALIFIED VISUAL LOSS, ONE EYE, UNSPEC 10/09/2019 JERSON BURDEN MD Ot I10 ESSENTIAL (PRIMARY) HYPERTENSION 10/09/2019 JERSON BURDEN MD Ot I71. 4 ABDOMINAL AORTIC ANEURYSM, WITHOUT RUPTU 10/09/2019 JERSON BURDEN MD Ot J18. 9 PNEUMONIA, UNSPECIFIED ORGANISM 10/09/2019 JERSON BURDEN MD Ot J96. 01 ACUTE RESPIRATORY FAILURE WITH HYPOXIA 10/09/2019 JERSON BURDEN MD Ot K59. 09 OTHER CONSTIPATION 10/09/2019 JERSON BURDEN MD Ot N40. 1 BENIGN PROSTATIC HYPERPLASIA WITH LOWER 10/09/2019 JERSON BURDEN MD Ot R33. 8 OTHER RETENTION OF URINE 10/09/2019 JERSON BURDEN MD Ot R65. 20 SEVERE SEPSIS WITHOUT SEPTIC SHOCK 10/09/2019 JERSON BURDEN MD Ot Z66 DO NOT RESUSCITATE 10/09/2019 JERSON BURDEN MD Ot Z87.820 PERSONAL HISTORY OF TRAUMATIC BRAIN INJU 10/10/2019 JERSON BURDEN MD Ot A41. 9 SEPSIS, UNSPECIFIED ORGANISM 10/10/2019 JERSON BURDEN MD, Ot B19. 10 UNSPECIFIED VIRAL HEPATITIS B WITHOUT HE 10/10/2019 JERSON BURDEN MD, Ot B19. 20 UNSPECIFIED VIRAL HEPATITIS C WITHOUT HE 10/10/2019 JERSON BURDEN MD Ot F03. 90 UNSPECIFIED DEMENTIA WITHOUT BEHAVIORAL 10/10/2019 JERSON BURDEN MD, Ot F20. 9 SCHIZOPHRENIA, UNSPECIFIED 10/10/2019 JERSON BURDEN MD, Ot F32. 9 MAJOR DEPRESSIVE DISORDER, SINGLE EPISOD 10/10/2019 JERSON BURDEN MD, Ot G40.909 EPILEPSY, UNSP, NOT INTRACTABLE, WITHOUT 10/10/2019 JERSON BURDEN MD Ot H54. 60 UNQUALIFIED VISUAL LOSS, ONE EYE, UNSPEC 10/10/2019 JERSON BURDEN MD, Ot I10 ESSENTIAL (PRIMARY) HYPERTENSION 10/10/2019 JERSON BURDEN MD Ot I71. 4 ABDOMINAL AORTIC ANEURYSM, WITHOUT RUPTU 10/10/2019 JERSON BURDEN MD, Ot J18. 9 PNEUMONIA, UNSPECIFIED ORGANISM 10/10/2019 JERSON BURDEN MD, Ot J96. 01 ACUTE RESPIRATORY FAILURE WITH HYPOXIA 10/10/2019 JERSON BURDEN MD, Ot K59. 09 OTHER CONSTIPATION 10/10/2019 JERSON BURDEN MD, Ot N40. 1 BENIGN PROSTATIC HYPERPLASIA WITH LOWER 10/10/2019 JERSON BURDEN MD Ot R33. 8 OTHER RETENTION OF URINE 10/10/2019 JERSON BURDEN MD Ot R65. 20 SEVERE SEPSIS WITHOUT SEPTIC SHOCK 10/10/2019 JERSON BURDEN MD Ot Z66 DO NOT RESUSCITATE 10/10/2019 JERSON BURDEN MD, Ot Z87.820 PERSONAL HISTORY OF TRAUMATIC BRAIN INJU Procedures Code Description [place] [address] OFFI CE/OUTPATIENT VISIT, EST 06/04/2016 [id number] [place] keeping Screen - Initial John Spencer S 01/06/2017 [id number] IN SERTION OF INFUSION DEV INTO SUP VENA 10/08/2019 Results Test Result Range Comprehensive Metabolic Panel [...] NA 5.0-8.0 Protein Negative NA Negative Specific [place] 1.020 NA 1.003-1.030 UA Collection type Not [...] JUNI RESULT NEGATIVE; NO FUNGAL ELEMENTS OBSERVED NR Blood CBC with ordered manual differenti al [...] glucose detection by automated test strip TR OMDESTA NEGATIVE Erythrocytes detection in urine sediment by [...] A AND B ANTIGENS BY IA NRG 2019 Coronavirus SARS-CoV-2 SO - 0 09:07 [...] measurement (mass/volume) 2.7 mg/dL 2.3-4.7 Magnesium - 09/19/19 05:15 Magnesium 1.9 mg/dL 1.6-2.4 Serum or plasma lithium measurement (mol es/volume) - 09/19/19 07:30 BNP PT 110.4 pg/mL <100.0 Complete urinalysis with reflex to cultu re - 09/21/19 07:10 Urine color determination THAIS NRG Urine clarity determination CLEAR NR G Urine pH measurement by test strip 6.5 5-9 Specific gravity of urine by test strip >= 1.016-1.022 Urine protein assay by test strip, semi-quantitative NEGATIVE NEGATIVE Urine glucose detection by automated test strip NE GATIVE NEGATIVE Erythrocytes detection in urine sediment by [...] cou nt by microscopy (number/high power field) [HPF] NRG Automated urine sediment leukocyte count by microscopy (number/high power field) [HPF] NRG Bacteria detection in urine sediment by light microsco py TRACE NRG Squamous epithelial cells detection in u rine sediment by light microscopy 0-2 NRG Crystals detection in urine sediment by light microsco py NONE NRG Casts detection in urine sediment by light microscopy NONE NRG Mucus detection in urine sediment by light microscopy MODERATE NRG Complete urinalysis with reflex to culture YES NRG Bacterial urine culture - 09/21/19 07:10 Bacterial urine culture NG NRG Bacterial blood culture - 09/21/19 07:10 Bacterial blood culture NG NRG Complete blood count (CBC) with automate d white blood cell (WBC) differential - 09/21/19 07:35 Blood leukocytes automated count (number/volume) 5.8 10*3/uL 4.3-11.0 Blood erythrocytes automated count (number/volume) 3.13 10*6/uL 4.35-5.85 Venous blood hemoglobin measurement (mass/volume) 10.5 g/dL 13.3-17.7 Blood hematocrit (volume fraction) 31 % 40-54 Automated erythrocyte mean corpuscular volume 99 [ foz_us] 80-99 Automated erythrocyte mean corpuscular h emoglobin (mass per erythrocyte) 34 pg 25-34 Automated erythrocyte mean corpuscular h emoglobin concentration measurement (mass/volume) 34 g/dL 32-36 Automated erythrocyte distribution width ratio 12. 5 % 10.0- 14.5 Automated blood platelet count (count/volume) 138 10*3/uL 130-400 Automated blood platelet mean volume measurement 8.8 [foz_us] 7.4-10.4 Automated blood neutrophils/100 leukocytes 69 % 42-75 Automated blood lymphocytes/100 leukocytes 14 % 12-44 Blood monocytes/100 leukocytes 17 % 0-12 Automated blood eosinophils/100 leukocytes 1 % 0-10 Automated blood basophils/100 leukocytes 0 % 0-10 Blood neutrophils automated count (number/volume) 4.0 10*3 1.8-7.8 Blood lymphocytes automated count (number/volume) 0.8 10*3 1.0-4.0 Blood monocytes automated count (number/volume) 1. 0 10*3 0.0-1.0 Automated eosinophil count 0.0 10*3/uL 0 .0-0.3 Automated blood basophil count (count/volume) 0.0 10*3/uL 0.0-0.1 Blood lactic acid measurement (moles/vol ume) - 09/21/19 07:35 Blood lactic acid measurement (moles/volume) 0.91 mmol/L 0.50-2.00 Comprehensive metabolic panel - 09/21/19 07:35 Serum or plasma sodium measurement (moles/volume) 139 mmol/L 135-145 Serum or plasma potassium measurement (moles/volume) 3.5 mmol/L 3.6-5.0 Serum or plasma chloride measurement (moles/volume) 104 mmol/L 98-107 Carbon dioxide 28 mmol/L 21-32 Serum or plasma anion gap determination (moles/volume) 7 mmol/L 5-14 Serum or plasma urea nitrogen measurement (mass/volume ) 10 mg/dL 7-18 Serum or plasma creatinine measurement (mass/volume) 0.61 mg/dL 0.60-1.30 Serum or plasma urea nitrogen/creatinine mass ratio 16 NRG Serum or plasma creatinine measurement w ith calculation of estimated glomerular filtration rate > NRG Serum or plasma glucose measurement (mass/volume) 82 mg/dL 70-105 Serum or plasma calcium measurement (mass/volume) 7.9 mg/dL 8.5-10.1 Serum or plasma total bilirubin measurement (mass/volu me) 0.6 mg/dL 0.1-1.0 Serum or plasma alkaline phosphatase leela surement (enzymatic activity/volume) 54 U/L 40-136 Serum or plasma aspartate aminotransfera se measurement (enzymatic activity/volume) 30 U/L 5-34 Serum or plasma alanine aminotransferase measurement (enzymatic activity/volume) 22 U/L 0-55 Serum or plasma protein measurement (mass/volume) 5.8 g/dL 6.4-8.2 Serum or plasma albumin measurement (mass/volume) 2.5 g/dL 3.2-4.5 CALCIUM CORRECTED 9.1 mg/dL 8.5-10.1 PT panel in platelet poor plasma by coag ulation assay - 09/21/19 07:35 Prothrombin time (PT) in platelet poor plasma by coagu lation assay 15.8 s 12.2-14.7 INR in platelet poor plasma or blood by coagulation as say 1.2 0.8-1.4 Activated partial thromboplastin time (a PTT) in platelet poor plasma bycoagulation assay - 09/21/19 07:35 Activated partial thromboplastin time (a PTT) in platelet poor plasma bycoagulation assay 35 s 24-35 PROCALCITONIN (PCT) - 09/21/19 07:35 PROCALCITONIN (PCT) 0.09 ng/mL <0.10 Serum or plasma C reactive protein measu rement (mass/volume) - 09/21/19 07:35 Serum or plasma C reactive protein measurement (mass/v olume) 9.84 mg/dL 0.00-0.50 Serum or plasma lithium measurement (mol es/volume) - 09/21/19 07:35 BNP PT 66.7 pg/mL <100.0 [id number] - 09/21/19 07:35 [id number] 53.2 ug/mL 50.0-100.0 Bacterial blood culture - 09/21/19 07:35 Bacterial blood culture NG NRG Complete urinalysis with reflex to cultu re - 10/08/19 09:39 Urine color determination YELLOW NRG Urine clarity determination CLEAR NR G Urine pH measurement by test strip 7.0 5-9 Specific gravity of urine by test strip 1.015 1.016-1.022 Urine protein assay by test strip, semi-quantitative NEGATIVE NEGATIVE Urine glucose detection by automated test strip NE GATIVE NEGATIVE Erythrocytes detection in urine sediment by light micr oscopy NEGATIVE NEGATIVE Urine ketones detection by automated test strip NE GATIVE NEGATIVE Urine nitrite detection by test strip NEGATIVE NEGATIVE Urine total bilirubin detection by test strip NEGA TIVE NEGATIVE Urine urobilinogen measurement by automated test strip (mass/volume) 0.2 mg/dL < = 1.0 Urine leukocyte esterase detection by dipstick NEG ATIVE NEGATIVE Automated urine sediment erythrocyte cou nt by microscopy (number/high power field) NONE NRG Automated urine sediment leukocyte count by microscopy (number/high power field) NONE NRG Bacteria detection in urine sediment by light microsco py TRACE NRG Crystals detection in urine sediment by light microsco py NONE NRG Casts detection in urine sediment by light microscopy NONE NRG Mucus detection in urine sediment by light microscopy NEGATIVE NRG Complete urinalysis with reflex to culture CULTURE PENDING NRG Serum reagin antibody assay (units/volum e) by RPR - 10/08/19 09:39 Serum reagin antibody assay (units/volume) by RPR Non-Reactive Non-Reactive Bacterial blood culture - 10/08/19 09:39 QUANTITY OF GROWTH Isolated NRG Bacterial blood culture [id number] NRG SUSCEPTIBILITY SEE COMMENTS NRG Blood lactic acid measurement (moles/vol ume) - 10/08/19 09:45 Blood lactic acid measurement (moles/volume) 1.44 mmol/L 0.50-2.00 PT panel in platelet poor plasma by coag ulation assay - 10/08/19 09:45 Prothrombin time (PT) in platelet poor plasma by coagu lation assay 15.2 s 12.2-14.7 INR in platelet poor plasma or blood by coagulation as say 1.2 0.8-1.4 Activated partial thromboplastin time (a PTT) in platelet poor plasma bycoagulation assay - 10/08/19 09:45 Activated partial thromboplastin time (a PTT) in platelet poor plasma bycoagulation assay 31 s 24-35 Comprehensive metabolic panel - 10/08/19 09:45 Serum or plasma sodium measurement (moles/volume) 140 mmol/L 135-145 Serum or plasma potassium measurement (moles/volume) 4.3 mmol/L 3.6-5.0 Serum or plasma chloride measurement (moles/volume) 106 mmol/L 98-107 Carbon dioxide 26 mmol/L 21-32 Serum or plasma anion gap determination (moles/volume) 8 mmol/L 5-14 Serum or plasma urea nitrogen measurement (mass/volume ) 20 mg/dL 7-18 Serum or plasma creatinine measurement (mass/volume) 0.64 mg/dL 0.60-1.30 Serum or plasma urea nitrogen/creatinine mass ratio 31 NRG Serum or plasma creatinine measurement w ith calculation of estimated glomerular filtration rate > NRG Serum or plasma glucose measurement (mass/volume) 94 mg/dL 70-105 Serum or plasma calcium measurement (mass/volume) 7.9 mg/dL 8.5-10.1 Serum or plasma total bilirubin measurement (mass/volu me) 0.5 mg/dL 0.1-1.0 Serum or plasma alkaline phosphatase leela surement (enzymatic activity/volume) 68 U/L 40-136 Serum or plasma aspartate aminotransfera se measurement (enzymatic activity/volume) 80 U/L 5-34 Serum or plasma alanine aminotransferase measurement (enzymatic activity/volume) 69 U/L 0-55 Serum or plasma protein measurement (mass/volume) 6.3 g/dL 6.4-8.2 Serum or plasma albumin measurement (mass/volume) 2.6 g/dL 3.2-4.5 CALCIUM CORRECTED 9.0 mg/dL 8.5-10.1 Serum or plasma troponin i.cardiac measu rement (mass/volume) - 10/08/19 09:45 Serum or plasma troponin i.cardiac measurement (mass/v olume) < ng/mL <0.028 Bacterial urine culture - 10/08/19 09:45 Bacterial urine culture NG NRG Bacterial blood culture - 10/08/19 10:06 Bacterial blood culture NG NRG Complete blood count (CBC) with automate d white blood cell (WBC) differential - 10/09/19 02:55 Blood leukocytes automated count (number/volume) 3.6 10*3/uL 4.3-11.0 Blood erythrocytes automated count (number/volume) 3.08 10*6/uL 4.35-5.85 Venous blood hemoglobin measurement (mass/volume) 10.2 g/dL 13.3-17.7 Blood hematocrit (volume fraction) 31 % 40-54 Automated erythrocyte mean corpuscular volume 102 [foz_us] 80-99 Automated erythrocyte mean corpuscular h emoglobin (mass per erythrocyte) 33 pg 25-34 Automated erythrocyte mean corpuscular h emoglobin concentration measurement (mass/volume) 33 g/dL 32-36 Automated erythrocyte distribution width ratio 13. 1 % 10.0- 14.5 Automated blood platelet count (count/volume) 93 1 0*3/uL 130-400 Automated blood platelet mean volume measurement 9.1 [foz_us] 7.4-10.4 Automated blood neutrophils/100 leukocytes 59 % 42-75 Automated blood lymphocytes/100 leukocytes 27 % 12-44 Blood monocytes/100 leukocytes 14 % 0-12 Automated blood eosinophils/100 leukocytes 1 % 0-10 Automated blood basophils/100 leukocytes 0 % 0-10 Blood neutrophils automated count (number/volume) 2.1 10*3 1.8-7.8 Blood lymphocytes automated count (number/volume) 1.0 10*3 1.0-4.0 Blood monocytes automated count (number/volume) 0. 5 10*3 0.0-1.0 Automated eosinophil count 0.0 10*3/uL 0 .0-0.3 Automated blood basophil count (count/volume) 0.0 10*3/uL 0.0-0.1 Comprehensive metabolic panel - 10/09/19 02:55 Serum or plasma sodium measurement (moles/volume) 142 mmol/L 135-145 Serum or plasma potassium measurement (moles/volume) 3.9 mmol/L 3.6-5.0 Serum or plasma chloride measurement (moles/volume) 108 mmol/L 98-107 Carbon dioxide 27 mmol/L 21-32 Serum or plasma anion gap determination (moles/volume) 7 mmol/L 5-14 Serum or plasma urea nitrogen measurement (mass/volume ) 17 mg/dL 7-18 Serum or plasma creatinine measurement (mass/volume) 0.56 mg/dL 0.60-1.30 Serum or plasma urea nitrogen/creatinine mass ratio 30 NRG Serum or plasma creatinine measurement w ith calculation of estimated glomerular filtration rate > NRG Serum or plasma glucose measurement (mass/volume) 86 mg/dL 70-105 Serum or plasma calcium measurement (mass/volume) 7.7 mg/dL 8.5-10.1 Serum or plasma total bilirubin measurement (mass/volu me) 0.5 mg/dL 0.1-1.0 Serum or plasma alkaline phosphatase leela surement (enzymatic activity/volume) 62 U/L 40-136 Serum or plasma aspartate aminotransfera se measurement (enzymatic activity/volume) 55 U/L 5-34 Serum or plasma alanine aminotransferase measurement (enzymatic activity/volume) 50 U/L 0-55 Serum or plasma protein measurement (mass/volume) 5.6 g/dL 6.4-8.2 Serum or plasma albumin measurement (mass/volume) 2.3 g/dL 3.2-4.5 CALCIUM CORRECTED 9.1 mg/dL 8.5-10.1 Radiology Report from [id number] on 03/02 14:57:00 Reason For ExamupsetREPORTIndication: An xietyPortable chest 8:19 AMThere is scoliosis of the thoracic spine convex to the right. Heart size andpulmonary vascularity are normal. There are no infiltrates, effusions orpneumothoraces.Impression: No acute abnormalities in the chest.Dictated on workstation:[id number] Line FINAL DICTATED BY: PERI TOSCANO MDDICTATED DT/TM: 03/02/2016 8:25 AMSIGNED BY: PERI TOSCANO MDSIGNED (ELECTRONIC SIGNATURE): 03/02/2016 8:26 AMTECHNOLOGIST: KELI LI RT(R) Radiology Report from [id number] on 06/03 08:45:00 Reason For Examfall/ head [...] disease with no acute fracture ordislocation.Dictated on workstation:[id number] Line PRELIMINARY DICTATED BY: AMANUEL TOLLIVER MDDICTATED DT/TM: 06/03/2016 8:30 Radiology Report from [id number] on 06/15 11:23:00 Reason For ExamHead InjuryREPORTINDICATI [...] noted and appear similar to 06/03/2016.Dictated on workstation:[id number] Line PRELIMINARY DICTATED BY: CHASTITY SRIVASTAVA MDDICTATED DT/TM: 06/15/2016 11:18 Radiology Report from [id number] on 08/29 13:23:00 Reason For Examfall, hx [...] evidence of acute cervical spinal abnormality.Dictated on workstation:[id number] Line PRELIMINARY DICTATED BY: ELIZABETH ELAM MDDICTATED DT/TM: 08/29/2017 8:52 Encounters ACCT No. Visit Date/Time Discharge Status Pt. Type Provider Facility Loc./Unit Complaint [id number] 01/06/2017 12:20:00 01/06/2017 23:5 9:59 [facility] Outpatient [id number] 08/29/2017 07:33:00 018 10:33:00 DIS Emergency Altamirano Jacob [facility] on [facility] ED seizure [id number] 06/15/2016 07:05:00 017 12:27:00 DIS Emergency Hammer Denise [facility] on [facility] ED seizures [id number] 06/03/2016 07:03:00 016 10:38:00 DIS Emergency Zamora Daniel Vi [facility] on [facility] ED seizure [id number] 03/02/2016 07:32:00 016 10:37:00 DIS Emergency Moises Johansen [facility] on [facility] ED SBH [id number] 09/24/2015 19:26:00 016 22:23:00 DIS Emergency Rashid Curtis DO [facility] on [facility] ED psych eval [id number] 02/07/2015 08:08:00 015 12:10:00 DIS Emergency Abdulzaiz Ruiz V [facility] on [facility] ED soa, abd pain, tbi [id number] 08/30/2017 05:19:20 Document Registration [id number] 06/16/2016 05:17:01 Document Registration [id number] 04/26/2015 05:17:17 Document Registration [id number] 04/22/2015 05:17:18 Document Registration [id number] 04/19/2015 05:16:32 Document Registration [id number] 04/18/2015 05:16:40 Document Registration [id number] 03/26/2015 13:43:52 Document Registration [id number] 03/26/2015 12:22:21 Document Registration [id number] 03/26/2015 12:01:40 Document Registration [id number] 03/26/2015 11:54:41 Document Registration [id number] 10/08/2019 11:41:00 15:40:00 DIS Outpatient BERTRAM DIEHL, JERSON Ortega [facility] 4TH PNA;HYPOXIA;DELIRIUM,SE PSIS [id number] 09/21/2019 06:49:00 10:30:00 DIS Emergency SUKHDEV DIEHL, DAVID Roberts [facility] ER SOB [id number] 09/16/2019 10:40:00 12:35:00 DIS Outpatient NIGEL DIEHL, SHARA Peñaloza [facility] 4TH PNA, HYPOXIA, SEPSIS [id number] 07/30/2019 10:58:00 020 23:59:59 CLS Outpatient GELLENDER DOAIDA A [facility] LAB ANEMIA [id number] 06/29/2019 14:53:00 020 23:59:59 CLS Outpatient GELLENDER DOAIDA A [facility] LAB RASH [id number] 11/22/2018 08:38:00 019 23:59:59 CLS Outpatient DANIEL DIEHL, TACO Lyn [facility] RAD INCONTENANCE [id number] 10/29/2018 18:06:00 019 19:36:00 DIS Emergency LUZMA TAVARES [facility] ER FALL [id number] 10/06/2018 21:01:00 00:15:00 DIS Emergency DIONNE LAGOS APRN [facility] ER AGGRESSION [id number] 06/15/2016 07:05:00 Document Registration [id number] 06/03/2016 07:03:00 Document Registration [id number] 06/21/2016 17:40:00 07/05/2016 16:00 :00 DIS Inpatient ARMINDA DIEHL, BRIAN Marte [facility] [id number] 06/04/2016 16:15:00 Document Registration
--- NOTE | 2019-11-17 16:35 | ED Head Injury ---
General Stated Complaint: HEAD INJ Source: patient Exam Limitations: no limitations History of Present Illness Date Seen by Provider: Nov 17, 2019 Time Seen by Provider: 16:32 Initial Comments To ER by EMS from [place] with reports that he fell out of bed and hit his head. It was an unwitnessed fall. He is on hospice with [facility], history of recent pneumonia, traumatic brain injury, dementia, hepatitis C, seizure disorder. Occurred: just prior to arrival Method of Injury: unknown Associated Systoms: Denies Symptoms Allergies and Home Medications Allergies Coded Allergies: No Known Drug Allergies (Unverified , 10/06/18) Home Medications Acetaminophen 325 Mg Tablet, 650 MG PO Q4H PRN for PAIN-MILD (1-4) OR TEMPATURE, (Reported) Albuterol Sulfate 1 Puff Puff, 2 PUFF INH Q4H PRN for SHORTNESS OF BREATH, (Reported) Benztropine Mesylate 2 Mg Tablet, 2 MG PO TID, (Reported) Bisacodyl 5 Mg Tablet.dr, 10 MG PO DAILY PRN for CONSTIPATION-4TH LINE, (Reported) Bisacodyl 10 Mg Supp.rect, 10 MG RC DAILY PRN for CONSTIPATION-4TH LINE, (Reported) Cefdinir 300 Mg Capsule, 300 MG PO BID Prescribed by: JERSON BURDEN on 10/10/19 1237 Cyanocobalamin (Vitamin B-12) 1,000 Mcg Tablet, 1,000 MCG PO DAILY, (Reported) Divalproex Sodium 125 Mg Cap, 375 MG PO TID, (Reported) TAKES 3 (125MG) CAPS TO EQUAL 375MG THREE TIMES DAILY Docusate Sodium 100 Mg Capsule, 100 MG PO BID, (Reported) Folic Acid 1 Mg Tablet, 1 MG PO DAILY, (Reported) Haloperidol Decanoate 50 Mg/1 Ml Ampul, 37.5 MG IM MONTHLY, (Reported) Hydroxyzine HCl 25 Mg Tablet, 25 MG PO TID, (Reported) Levetiracetam 1,000 Mg Tablet, 1,000 MG PO BID, (Reported) Loratadine 10 Mg Tablet, 10 MG PO DAILY, (Reported) Losartan Potassium 25 Mg Tablet, 25 MG PO DAILY, (Reported) HOLD IF SBP <90 OR >180 Magnesium Hydroxide 400 Mg/5 Ml Oral.susp, 30 ML PO DAILY PRN for CONSTIPATION- 7TH LINE, (Reported) Melatonin 5 Mg Tablet, 10 MG PO HS PRN for SLEEP, (Reported) Memantine HCl 28 Mg Cap.spr.24, 28 MG PO DAILY, (Reported) Multivitamin 1 Each Tablet, 1 EACH PO DAILY, (Reported) Na Phos,M-B/Na Phos,Di-Ba 133 Ml Enema, 1 UNIT RC DAILY PRN for CONSTIPATION, (Reported) USE IF NO BOWEL MOOVEMENT IN 5 DAYS Polyethylene Glycol 3350 17 Gm Powd.pack, 17 GM PO DAILY, (Reported) Sennosides 8.6 Mg Tablet, 17.2 MG PO DAILY, (Reported) Sertraline HCl 25 Mg Tablet, 75 MG PO DAILY, (Reported) TAKES 3(25MG) TABS TO EQUAL 75MG Trazodone HCl 50 Mg Tablet, 50 MG PO HS, (Reported) Triamcinolone Acetonide 430 Gm Oint...g., 1 APPLIC TP BID, (Reported) APPLY TO ARMS AND TORSO Patient Home Medication List Home Medication List Reviewed: Yes Review of Systems Review of Systems Constitutional: see HPI Eyes: No Symptoms Reported Ears, Nose, Mouth, Throat: no symptoms reported Respiratory: no symptoms reported Cardiovascular: no symptoms reported Genitourinary: no symptoms reported Musculoskeletal: no symptoms reported Psychiatric/Neurological: No Symptoms Reported Past Hkxgxco-Jbwsni-Gevihf Hx Patient Social History 2nd Hand Smoke Exposure: No Recent Hopitalizations: Yes (PNEUMONIA) Immunizations Up To Date Tetanus Booster (TDap): Unknown Date of Pneumonia Vaccine: Jun 09, 2018 Past Medical History Surgeries: No (not reported) Respiratory: Yes Pneumonia Cardiac: Yes Hypertension Neurological: Yes Dementia, Seizure Disorder, Traumatic Brain Injury Genitourinary: Yes (RETENTION OF URINE) Prostate Problems Gastrointestinal: Yes (HEP B, HEP C) Chronic Constipation, Hepatitis Musculoskeletal: No Endocrine: No HEENT: Yes Loss of Vision: Right Cancer: No Psychosocial: Yes Schizophrenia, Depression Integumentary: No Blood Disorders: Yes (HEP C+ HEP B) Physical Exam Vital Signs Vital Signs - First Documented 11/17/19 16:24 Temp 36.2 Pulse 65 Resp 16 B/P (MAP) 124/90 (101) Pulse Ox 99 O2 Delivery Room Air Capillary Refill : Height, Weight, BMI Height: 5'8.00" Weight: 150lbs. oz. 68.884386rm; 22.00 BMI Method:Estimated General Appearance: WD/WN, no apparent distress, other HEENT: PERRL/EOMI, normal ENT inspection, other (makes grunting noises, eyes are open looking around the room, has apparent dystonic movements of his tongue. Appears chronically ill, thin) Neck: non-tender, full range of motion Cardiovascular: regular rate, rhythm, no murmur Respiratory: no respiratory distress, no accessory muscle use Gastrointestinal: normal bowel sounds, soft Skin: normal color, warm/dry Huntington Coma Score Best Eye Response: (4) Open Spontaneously Best Verbal Response: (2) Incomprehsible Sounds Best Motor Response: (3) Flexion to Pain [place] Total: 9 Departure Communication (Admissions) I spoke with power of staff attorney Jorge L Holland who states that he would not want the gentleman to have brain surgery as he doesn't feel that he would be a candidate anyway if there were an intracranial hemorrhage requiring surgical intervention found on CT. As such there is no point in doing the CT, we'll [facility] him back to [facility] to resume [facility] care Impression Primary Impression: Head injury Disposition: 01 HOME, SELF-CARE Condition: Stable Departure-Patient Inst. Decision time for Depature: 16:35 Referrals: AIDA VENTURA DO (PCP/Family) Primary Care Physician Patient Instructions: Closed Head Injury (DC) DIONNE LAGOS SAP SPECIALIST Nov 17, 2019 16:35
--- NOTE | 2019-11-17 16:46 | NUR ---
Per EMS, nursing staff at [facility] and rehab states this is the patient's normal mental status.
--- NOTE | 2019-11-17 16:49 | NUR ---
[facility] re[facility] notified that patient is ready to be discharged. They will have someone enroute shortly.
--- NOTE | 2019-11-17 17:15 | NUR ---
Patient remains in bed. No signs of distress present. Patient awake, looking around but does not follow commands.
--- NOTE | 2019-11-17 18:00 | NUR ---
Patient remains in bed. Side rails up. Patient awake, looking around. No signs of distress present.
[2019-11-17 19:01] VITALS: BP 129/107
--- NOTE | 2019-11-17 19:01 | NUR ---
[facility] to transfer patient back to senior living. Altered Level of consciousness normal for patient. Patient picked up and placed into wheelchair by ER staff. Paperwork signed by Reba Loera from [facility] and [facility].
== END 2019-11-17 19:01 | disposition home or self-care (01) ==
LOC: EDUNIT# 16:24 → ER 16:25
DX: S09.90XA Unspecified injury of head, initial encounter (principal); I10 Essential (primary) hypertension; F03.90 Unspecified dementia, unspecified severity, without behavioral disturbance, psychotic disturbance, mood disturbance, and anxiety; G40.909 Epilepsy, unspecified, not intractable, without status epilepticus; F20.9 Schizophrenia, unspecified; F32.9 Major depressive disorder, single episode, unspecified; R40.2142 Coma scale, eyes open, spontaneous, at arrival to emergency department; R40.2342 Coma scale, best motor response, flexion withdrawal, at arrival to emergency department; R40.2222 Coma scale, best verbal response, incomprehensible words, at arrival to emergency department; Z87.820 Personal history of traumatic brain injury; W06.XXXA Fall from bed, initial encounter; Y92.129 Unspecified place in nursing home as the place of occurrence of the external cause
CPT/HCPCS: 99283